=== PATIENT | male | born 1960 | race Caucasian/White ===

== ENCOUNTER 2017-05-06 03:38 | Emergency (ER) | payer OTHER ==
[2017-05-06] MEDS ORDERED: KETOROLAC 30 MG/ML 1 ML VIAL IVP STA (04:12)
[2017-05-06] MEDS ORDERED: HYDROmorphone 1 MG/ML 1 ML SYRINGE IVP STA ×2 (04:12→05:00)
[2017-05-06] MEDS ORDERED: SODIUM CHLORIDE 0.9% 1,000 ML IV ONE (04:12)
--- NOTE | 2017-05-06 04:26 | ED ---
General Adult HPI - General Chief complaint: Back Pain/Injury Stated complaint: Low Back Pain Time Seen by Provider: 05/06/17 04:12 Source: patient Mode of arrival: ambulatory Limitations: no limitations - History of Present Illness Initial comments: 57-year-old male patient presents to the emergency department today with complaints of left flank pain that started around 0100 this morning. He states that the pain is sharp, stabbing, and constant. He states it radiates into the left lower quadrant of his abdomen. Patient states that he has been a matter what position he is in. States that nothing makes the pain worse or better. Patient states he has had similar pain in the past with a kidney stone. Patient states that he has had decreased urine output with this. He states that he did have one episode of diarrhea with the onset of the pain. Patient denies any recent fever, chills, shortness breath, nausea, vomiting, numbness, tingling, dizziness, weakness, hematuria, dysuria, headache, visual changes, or any other complaints. - Related Data Previous Rx's Medication Instructions Recorded Hydrocodone/Acetaminophen [[place] 1 tab PO Q6H PRN #25 tab 05/06/17 7.5-325] RX: Ibuprofen 600 mg PO Q8H #30 tablet 05/06/17 Tamsulosin HCl [Flomax] 0.4 mg PO DAILY #7 cap 05/06/17 Allergies Allergy/AdvReac Type Severity Reaction Status Date / Time No Known Allergies Allergy Verified 05/06/17 03:45 Review of Systems ROS Statement: Those systems with pertinent positive or pertinent negative responses have been documented in the HPI. ROS Other: All systems not noted in ROS Statement are negative. Past Medical History Past Medical History: Hypertension History of Any Multi-Drug Resistant Organisms: None Reported Past Surgical History: Appendectomy Past Psychological History: No Psychological Hx Reported Smoking Status: Never smoker Past Alcohol Use History: None Reported Past Drug Use History: None Reported General Exam Limitations: no limitations General appearance: alert, in distress (Moderate), other (Well-developed, well- nourished male patient appears to be moderate distress, unable to sit still, rolling around in the bed. Vital signs upon presentation were temperature 90.7 F, pulse 65, respirations 20, blood pressure 138/88, pulse ox 97% on room air) ENT exam: Present: normal exam, normal oropharynx, mucous membranes moist Respiratory exam: Present: normal lung sounds bilaterally. Absent: respiratory distress, wheezes, rales, rhonchi, stridor Cardiovascular Exam: Present: regular rate, normal rhythm, normal heart sounds. Absent: systolic murmur, diastolic murmur, rubs, gallop, clicks GI/Abdominal exam: Present: soft, distended, normal bowel sounds. Absent: tenderness, guarding, rebound, rigid Back exam: Present: normal inspection. Absent: CVA tenderness (R), CVA tenderness (L) Neurological exam: Present: alert, oriented X3, CN II-XII intact Psychiatric exam: Present: normal affect, normal mood Skin exam: Present: warm, dry, intact, normal color. Absent: rash Course Vital Signs 05/06/17 05/06/17 03:42 05:51 Temperature 97 F L 97.5 F L Pulse Rate 65 74 Respiratory 20 16 Rate Blood Pressure 138/88 128/70 O2 Sat by Pulse 97 99 Oximetry - Reevaluation(s) Reevaluation #1: 05/06/17 05:01 Reevaluated patient. Patient states that his symptoms are much improved heart rate still rating his pain 2 out of 10 on the pain scale. He is requesting more pain medication. Did discuss findings with him. He still has a significant amount of his IV fluid bolus left ago, I would like him to get this prior to discharge. I will order additional pain medication and reevaluate once the fluids and pain medication has been infused. Medical Decision Making - Medical Decision Making 57-year-old male patient presents for evaluation of left flank pain with radiation to his left lower quadrant. Lab work was performed, serum labs are unremarkable, urinalysis did show red blood cells present. KUB x-ray of the abdomen was performed and did show a left mid abdominal calculus measuring up to 11.3 mm. There is also some evidence of a possible partial small bowel instruction on xray. Did discuss the possibility of this obstruction with the patient, patient does not clinically present with signs or symptoms of bowel obstruction. States that yesterday he ate and drank without difficulty. He denies any nausea or vomiting. He states he did have a bowel movement this morning. Upon reevaluation patient is resting comfortably in bed, states that his pain is resolved, states that he feels much better. He will be discharged with instructions to follow up with urology for further evaluation of this kidney stone. He is instructed to take medications as directed, he will be given Flomax, [place], ibuprofen, and a Zofran starter pack for management of symptoms. He is instructed to increase fluids. He is instructed to return immediately if he has any development of nausea, vomiting, urinary retention, fever, chills, or any other concerning symptoms. He is instructed to follow-up with his primary care physician for recheck in 1-2 days. He is instructed to return here immediately for any new, worsening, or concerning symptoms. Patient verbalizes understanding and agrees this plan. - Lab Data Result diagrams: 05/06/17 04:07 05/06/17 04:07 Lab Results 05/06/17 05/06/17 05/06/17 Range/Units 04:02 04:07 04:07 WBC 8.7 (3.8-10.6) k/uL RBC 4.61 (4.30-5.90) m/uL Hgb 14.8 (13.0-17.5) gm/dL Hct 45.0 (39.0-53.0) % MCV 97.6 (80.0-100.0) fL MCH 32.2 (25.0-35.0) pg MCHC 33.0 (31.0-37.0) g/dL RDW 14.1 (11.5-15.5) % Plt Count 185 (150-450) k/uL Neutrophils % 58 % Lymphocytes % 31 % Monocytes % 6 % Eosinophils % 3 % Basophils % 1 % Neutrophils # 5.0 (1.3-7.7) k/uL Lymphocytes # 2.7 (1.0-4.8) k/uL Monocytes # 0.5 (0-1.0) k/uL Eosinophils # 0.3 (0-0.7) k/uL Basophils # 0.1 (0-0.2) k/uL Sodium 140 (137-145) mmol/L Potassium 4.5 (3.5-5.1) mmol/L Chloride 110 H (98-107) mmol/L Carbon Dioxide 19 L (22-30) mmol/L Anion Gap 11 mmol/L BUN 17 (9-20) mg/dL Creatinine 1.00 (0.66-1.25) mg/dL Est GFR (MDRD) Af Amer >60 (>60 ml/min/1.73 sqM) Est GFR (MDRD) Non-Af >60 (>60 ml/min/1.73 sqM) Glucose 128 H (74-99) mg/dL Calcium 9.3 (8.4-10.2) mg/dL Total Bilirubin 0.6 (0.2-1.3) mg/dL AST 40 (17-59) U/L ALT 61 (21-72) U/L Alkaline Phosphatase 65 (38-126) U/L Total Protein 6.5 (6.3-8.2) g/dL Albumin 3.9 (3.5-5.0) g/dL Amylase 82 (30-110) U/L Lipase 247 (23-300) U/L Urine Color Yellow Urine Appearance Clear (Clear) Urine pH 5.0 (5.0-8.0) Ur Specific [place] 1.020 (1.001-1.035) Urine Protein Trace H (Negative) Urine Glucose (UA) Negative (Negative) Urine Ketones Negative (Negative) Urine Blood Moderate H (Negative) Urine Nitrite Negative (Negative) Urine Bilirubin Negative (Negative) Urine Urobilinogen <2.0 (<2.0) mg/dL Ur Leukocyte Esterase Negative (Negative) Urine RBC 117 H (0-5) /hpf Urine WBC 3 (0-5) /hpf Urine Mucus Few H (None) /hpf - Radiology Data Radiology results: report reviewed, image reviewed Two-view x-ray of the abdomen shows the intraperitoneal space there are surgical clips seen within the right lower abdomen. Left mid abdominal calcification is seen of uncertain etiology measuring up to 11.3 mm, question renal. No free air. Gastrointestinal tract shows dilated small bowel loops seen within the mid abdomen which may reflect a partial small bowel obstruction. Bones and joints are unremarkable. Impression by Dr. Silva shows dilated small bowel loops seen within the mid abdomen which may reflect a partial small bowel obstructive her left mid abdominal calcification is seen of uncertain etiology measuring up to 11.8 mm, question renal. Disposition Clinical Impression: Kidney stone on left side Disposition: HOME SELF-CARE Condition: Good Instructions: Kidney Stones (ED), How to Strain Your Urine (ED), Flank Pain (ED ) Additional Instructions: Strain urine. Increase fluids. Takes medications as directed. Call urology for an appointment tomorrow morning let them know you have an 11 mm kidney stone on the left side. Follow-up with your primary care physician for recheck in 1-2 days. Return immediately for any new, worsening, or concerning symptoms. Prescriptions: Hydrocodone/Acetaminophen [[place] 7.5-325] 1 tab PO Q6H PRN #25 tab PRN Reason: Pain RX: Ibuprofen 600 mg PO Q8H #30 tablet Tamsulosin HCl [Flomax] 0.4 mg PO DAILY #7 cap Referrals: Dario Hooper MD [Primary Care Provider] - 1-2 days Zan Easton MD [STAFF PHYSICIAN] - 1-2 days Time of Disposition: 05:37
[2017-05-06 04:31] LABS: Basophils # (A) 0.1 k/uL (0-0.2); Basophils % (A) 1 %; CH 32.9; CHCM 33.8; Eosinophils # (A) 0.3 k/uL (0-0.7); Eosinophils % (A) 3 %; HGB 14.8 gm/dL (13.0-17.5); Luc # (Auto) 0.15; Luc % (Auto) 2; Lymphocytes # (A) 2.7 k/uL (1.0-4.8); Lymphocytes % (A) 31 %; MCH 32.2 pg (25.0-35.0); MCV 97.6 fL (80.0-100.0); Mean Platelet Volume 8.7; Monocytes # (A) 0.5 k/uL (0-1.0); Monocytes % (A) 6 %; Neutrophils % (A) 58 %; RBC 4.61 m/uL (4.30-5.90); RDW 14.1 % (11.5-15.5); WBC 8.7 k/uL (3.8-10.6)
[2017-05-06 04:33] LABS: Appearance,Urine Clear (Clear); Bilirubin,Urine Negative (Negative); Glucose,Urine (UA) Negative (Negative); Ketones,Urine Negative (Negative); Leukocyte Esterase,Urine Negative (Negative); Mucus,Urine Few /hpf; Nitrite,Urine Negative (Negative); Particle Count 6089; Protein,Urine Trace (Negative); RBC,Urine 117 /hpf (0-5); UA Billing (MACRO vs. MICRO) MICRO; Urobilinogen,Urine <2.0 mg/dL (<2.0); WBC,Urine 3 /hpf (0-5)
[2017-05-06 04:41] LABS: ALT 61 U/L (21-72); AST 40 U/L (17-59); Alkaline Phosphatase 65 U/L (38-126); Amylase 82 U/L (30-110); Anion Gap 11 mmol/L; Blood Urea Nitrogen 17 mg/dL (9-20); Calcium 9.3 mg/dL (8.4-10.2); Carbon Dioxide 19 mmol/L (22-30); Chloride 110 mmol/L (98-107); Glucose 128 mg/dL (74-99); Non-African American GFR(MDRD) >60 (>60 ml/min/1.73 sqM); Potassium 4.5 mmol/L (3.5-5.1); Sodium 140 mmol/L (137-145); Total Bilirubin 0.6 mg/dL (0.2-1.3); Total Protein 6.5 g/dL (6.3-8.2)
--- NOTE | 2017-05-06 05:21 | XR ---
EXAM: XR Abdomen Complete, 2 Views CLINICAL HISTORY: Reason: Pain TECHNIQUE: Frontal view of the abdomen/pelvis with upright view of the abdomen. COMPARISON: No relevant prior studies available. FINDINGS: Intraperitoneal space: Surgical clips are seen within the right lower abdomen. Left mid abdominal calcification is seen of uncertain etiology measuring up to 11.3 mm, question renal. No free air. Gastrointestinal tract: Dilated small bowel loops seen within the mid abdomen which may reflect a partial small bowel obstruction. Bones/joints: Unremarkable. IMPRESSION: Dilated small bowel loops seen within the mid abdomen which may reflect a partial small bowel obstruction. Left mid abdominal calcification is seen of uncertain etiology measuring up to 11.3 mm, question renal.
[2017-05-06] MEDS ORDERED: ONDANSETRON 4 MG ODT STARTER PACK 2 TAB BTL PO STA (05:40)
[2017-05-06 05:52] VITALS: BP 128/70; PULSE 74; RESP 16; TEMP 97.5
== END 2017-05-06 05:51 | disposition home or self-care (01) ==
LOC: EC 03:38
DX: N20.0 Calculus of kidney (principal); K31.89 Other diseases of stomach and duodenum; R19.7 Diarrhea, unspecified; Z90.49 Acquired absence of other specified parts of digestive tract
CPT/HCPCS: 99284; 96374; 96375; 96376; 96361 ×2; 36415; 80053; 82150; 83690; 85025; 81001; 74000; J1885; J1170; S0119

== ENCOUNTER 2020-01-08 13:35 | Emergency (ER) | payer OTHER ==
[2020-01-08 13:45] VITALS: TEMP 98.3
[2020-01-08] MEDS ORDERED: IBUPROFEN 600 MG TAB PO STA (14:06)
--- NOTE | 2020-01-08 14:15 | ED ---
Head Injury HPI - General Chief complaint: Head Injury Stated complaint: head injury Time Seen by Provider: 01/08/20 13:53 Source: patient Mode of arrival: ambulatory Limitations: no limitations - History of Present Illness Initial comments: Patient is a 59-year-old male presenting to the emergency Department with complaints of a headache and nausea after a head injury yesterday. 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 Patient denies loss of consciousness. He states he had minor bleeding from the area that was quickly controlled. Patient denies any nausea or vomiting, dizziness yesterday. Patient states he went back to work this morning he was doing a lot of reading and noticed his headache was increasing as well as some mild nausea. He denies any dizziness or vomiting today. Patient denies any blurry vision. Patient has no other complaints. 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 Patient has no other complaints at this time. Upon arrival to the ER, his vital signs are stable. - Related Data Previous Rx's Medication Instructions Recorded Hydrocodone/Acetaminophen [[place] 1 tab PO Q6H PRN #25 tab 05/06/17 7.5-325] Ibuprofen 600 mg PO Q8H #30 tablet 05/06/17 Tamsulosin HCl [Flomax] 0.4 mg PO DAILY #7 cap 05/06/17 Allergies/Adverse reactions: Allergies Allergy/AdvReac Type Severity Reaction Status Date / Time No Known Allergies Allergy Verified 01/08/20 13:45 Review of Systems ROS Statement: Those systems with pertinent positive or pertinent negative responses have been documented in the HPI. ROS Other: All systems not noted in ROS Statement are negative. Past Medical History Past Medical History: Hypertension History of Any Multi-Drug Resistant Organisms: None Reported Past Surgical History: Appendectomy Past Psychological History: No Psychological Hx Reported Smoking Status: Never smoker Past Alcohol Use History: None Reported Past Drug Use History: None Reported General Exam - General Exam Comments Initial Comments: GENERAL: Well-appearing, well-nourished and in no acute distress. HEAD: Atraumatic, normocephalic. No signs of basal skull fracture. Patient has an abrasion to the superior right aspect of the scalp. No active bleeding. EYES: Dilated right pupil, this is normal for patient, secondary to previous injury/surgery. Left pupil equal round and reactive to light, extraocular movements intact, sclera anicteric, conjunctiva are normal. ENT: TMs normal, nares patent, oropharynx clear without exudates. Moist mucous membranes. NECK: Normal range of motion, supple without lymphadenopathy or JVD. LUNGS: Breath sounds clear to auscultation bilaterally and equal. No wheezes rales or rhonchi. HEART: Regular rate and rhythm without murmurs, rubs or gallops. ABDOMEN: Soft, nontender, normoactive bowel sounds. No guarding, no rebound. No masses appreciated. : Deferred EXTREMITIES: Normal range of motion, no pitting or edema. No clubbing or cyanosis. Sensation is equal and normal bilateral upper and lower extremities. Strength is equal and bilateral upper and lower extremities. NEUROLOGICAL: Cranial nerves II through XII grossly intact. Normal speech, normal gait. PSYCH: Normal mood, normal affect. SKIN: Warm, Dry, normal turgor, no rashes or lesions noted. Limitations: no limitations Course Vital Signs 01/08/20 13:43 Temperature 98.3 F Pulse Rate 63 Respiratory 20 Rate Blood Pressure 128/82 O2 Sat by Pulse 98 Oximetry Medical Decision Making - Medical Decision Making Patient is a 59-year-old male here for a head injury that happened yesterday. Patient is complaining of increased headache and nausea when he returned to work today. There was no loss consciousness yesterday. Patient's exam is normal today, no neuro deficits. CT of the head reveals no acute abnormality. Patient was given Motrin in the ER. I discussed the patient's symptoms are most likely related to a mild concussion. Recommended to limit physical activity and close eye work. Patient will follow-up with PCP. Return parameters were discussed with the patient and he verbalized understanding. He is stable for discharge and he is in agreement with this plan of care. Case discussed Dr. Prasad. Disposition Clinical Impression: Concussion, Head ache, Nausea Disposition: HOME SELF-CARE Condition: Stable Instructions (If sedation given, give patient instructions): Concussion (ED) Additional Instructions: Please return to the Emergency Department if symptoms worsen or any other concerns. Limited physical activity until symptoms subside. Follow-up with PCP. Is patient prescribed a controlled substance at d/c from ED?: No Referrals: Dario Hooper MD [Primary Care Provider] - 1-2 days
--- NOTE | 2020-01-08 14:57 | CT ---
EXAMINATION TYPE: CT brain wo con DATE OF EXAM: 01/08/2020 COMPARISON: NONE HISTORY: headache following head injury CT DLP: 1129.4 mGycm. Automated Exposure Control for Dose Reduction was Utilized. TECHNIQUE: CT scan of the head is performed without contrast. FINDINGS: There is no acute intracranial hemorrhage, mass effect, or midline shift identified. The ventricles and sulci are within normal limits in size. Postsurgical change of the right maxillary si nus and inferior orbital wall with mild residual mucosal thickening. Scant mucosal thickening of the ethmoid sinuses and a plate of the left frontal sinuses. Remaining paranasal sinuses and mastoid air cells are well aerated.. 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 IMPRESSION: 1. No acute intracranial hemorrhage, mass effect, or midline shift is seen. 2. Postsurgical and/or chronic posttraumatic change of the right maxillary sinus and inferior orbital wall with mild residual right maxillary mucosal thickening.
[2020-01-08 15:23] VITALS: BP 134/79; PULSE 87; RESP 16
== END 2020-01-08 15:22 | disposition home or self-care (01) ==
LOC: EC 13:35
DX: S06.0X0A Concussion without loss of consciousness, initial encounter (principal); R11.0 Nausea; W20.8XXA Other cause of strike by thrown, projected or falling object, initial encounter
CPT/HCPCS: 70450; 99283

== ENCOUNTER 2020-10-26 09:32 | Emergency (ER) | payer OTHER ==
[2020-10-26] MEDS ORDERED: SODIUM CHLORIDE 0.9% 1,000 ML IV STA (10:00)
[2020-10-26] MEDS ORDERED: KETOROLAC 15 MG/ML 1 ML VIAL IVP STA (10:00)
[2020-10-26] MEDS ORDERED: ONDANSETRON 4 MG/2 ML VIAL IVP STA (10:00)
[2020-10-26] MEDS ORDERED: HYDROmorphone 0.5 MG/0.5 ML SYRINGE IVP STA (10:16)
[2020-10-26 10:17] LABS: Basophils # (A) 0.1 k/uL (0-0.2); Basophils % (A) 1 %; Eosinophils # (A) 0.1 k/uL (0-0.7); Eosinophils % (A) 1 %; HCT 49.1 % (39.0-53.0); HGB 15.9 gm/dL (13.0-17.5); Lymphocytes # (A) 1.5 k/uL (1.0-4.8); Lymphocytes % (A) 18 %; MCH 31.9 pg (25.0-35.0); MCHC 32.5 g/dL (31.0-37.0); MCV 98.1 fL (80.0-100.0); Mean Platelet Volume 8.6; Monocytes # (A) 0.6 k/uL (0-1.0); Monocytes % (A) 7 %; Neutrophils # (A) 6.3 k/uL (1.3-7.7); Neutrophils % (A) 72 %; Platelet Count 204 k/uL (150-450); WBC 8.7 k/uL (3.8-10.6)
--- NOTE | 2020-10-26 10:18 | ED ---
General Adult HPI - General Source: patient Mode of arrival: wheelchair Limitations: no limitations <Celestino Yoder - Last Filed: 10/26/20 11:08> <Mariella Miller - Last Filed: 10/28/20 23:13> - General Chief complaint: Abdominal Pain Stated complaint: Back Pain Time Seen by Provider: 10/26/20 09:50 - History of Present Illness Initial comments: 60-year-old male with a past medical history of hypertension, nephrolithiasis, appendectomy presents to the emergency department for chief complaint of right low back pain. Patient reports that about 4 hours prior to arrival he developed pain in the right low back that radiates to his abdomen. Patient states he has had kidney stones in the past however this is more severe. Patient admits to nausea denies vomiting. Denies fevers. Denies chest pain.Patient has no other complaints at this time including shortness of breath, chest pain, abdominal pain, nausea or vomiting, headache, or visual changes. (Celestino Yoder) - Related Data Previous Rx's Medication Instructions Recorded Hydrocodone/Acetaminophen [[place] 1 tab PO Q6H PRN #25 tab 05/06/17 7.5-325] Ibuprofen 600 mg PO Q8H #30 tablet 05/06/17 Tamsulosin HCl [Flomax] 0.4 mg PO DAILY #7 cap 05/06/17 HYDROcodone/APAP 5-325MG [[place] 1 tab PO Q6HR PRN #10 tab 10/26/20 5-325] Ibuprofen [Motrin] 600 mg PO Q8HR PRN #20 tab 10/26/20 Ondansetron [Zofran ODT] 4 mg PO Q8HR PRN #15 tab 10/26/20 Tamsulosin [Flomax] 0.4 mg PO DAILY #14 cap 10/26/20 Allergies Allergy/AdvReac Type Severity Reaction Status Date / Time No Known Allergies Allergy Verified 10/26/20 09:40 Review of Systems ROS Other: All systems not noted in ROS Statement are negative. <Celestino Yoder - Last Filed: 10/26/20 11:08> ROS Other: All systems not noted in ROS Statement are negative. <Mariella Miller - Last Filed: 10/28/20 23:13> ROS Statement: Those systems with pertinent positive or pertinent negative responses have been documented in the HPI. Past Medical History Past Medical History: Hypertension Additional Past Medical History / Comment(s): kidney stones History of Any Multi-Drug Resistant Organisms: None Reported Past Surgical History: Appendectomy Past Psychological History: No Psychological Hx Reported Smoking Status: Former smoker Past Alcohol Use History: Occasional Past Drug Use History: None Reported <Celestino Yoder - Last Filed: 10/26/20 11:08> General Exam Limitations: no limitations General appearance: alert, in no apparent distress Head exam: Present: atraumatic, normocephalic, normal inspection Eye exam: Present: normal appearance, PERRL, EOMI. Absent: scleral icterus, conjunctival injection, periorbital swelling ENT exam: Present: normal exam, mucous membranes moist Neck exam: Present: normal inspection, full ROM. Absent: tenderness, mening ismus, lymphadenopathy Respiratory exam: Present: normal lung sounds bilaterally. Absent: respiratory distress, wheezes, rales, rhonchi, stridor Cardiovascular Exam: Present: regular rate, normal rhythm, normal heart sounds. Absent: systolic murmur, diastolic murmur, rubs, gallop, clicks GI/Abdominal exam: Present: soft, normal bowel sounds. Absent: distended, tenderness Back exam: Present: CVA tenderness (R). Absent: CVA tenderness (L) Neurological exam: Present: alert <Celestino Yoder - Last Filed: 10/26/20 11:08> Course Vital Signs 10/26/20 10/26/20 09:38 11:14 Temperature 97.4 F L 98.4 F Pulse Rate 86 72 Respiratory 16 18 Rate Blood Pressure 131/73 126/73 O2 Sat by Pulse 97 97 Oximetry Medical Decision Making - Lab Data Result diagrams: 10/26/20 10:08 10/26/20 10:08 <Celestino Yoder - Last Filed: 10/26/20 11:08> - Lab Data Result diagrams: 10/26/20 10:08 10/26/20 10:08 <Mariella Miller - Last Filed: 10/28/20 23:13> - Medical Decision Making Vitals are stable. Patient initially presented in mild distress secondary to pain. He did have right CVA tenderness. No abdominal tenderness. CBC and CMP are unremarkable. Lipase is normal. Urinalysis does show hematuria. CT abdomen and pelvis was obtained that showed a 6 mm calculus in the uppermost right ureter with mild early obstructive uropathy. Patient was given Toradol for pain and had significant improvement in symptoms. At this time patient will be started on Motrin and [place] for pain, Flomax, and Zofran. Discussed that this stone may pass on its own however he may require lithotripsy. [facility] and will continue to do so. He will call tomorrow for an appointment. He will return here for any worsening symptoms. (Celestino Yoder) I was available for consultation in the emergency department. The history and physical exam were done by the midlevel provider. I was consulted for this patients care. I reviewed the case with the midlevel provider and based on their presentation of the patient, I agree with the assessment, medical decision making and plan of care as documented. Chart was dictated using [employer] dictation software. Attempts were made to correct any dictation errors however some typographical errors may persist. (Mariella Miller) - Lab Data Lab Results 10/26/20 10/26/20 10/26/20 Range/Units 10:08 10:08 10:08 WBC 8.7 (3.8-10.6) k/uL RBC 5.00 (4.30-5.90) m/uL Hgb 15.9 (13.0-17.5) gm/dL Hct 49.1 (39.0-53.0) % MCV 98.1 (80.0-100.0) fL MCH 31.9 (25.0-35.0) pg MCHC 32.5 (31.0-37.0) g/dL RDW 13.0 (11.5-15.5) % Plt Count 204 (150-450) k/uL MPV 8.6 Neutrophils % 72 % Lymphocytes % 18 % Monocytes % 7 % Eosinophils % 1 % Basophils % 1 % Neutrophils # 6.3 (1.3-7.7) k/uL Lymphocytes # 1.5 (1.0-4.8) k/uL Monocytes # 0.6 (0-1.0) k/uL Eosinophils # 0.1 (0-0.7) k/uL Basophils # 0.1 (0-0.2) k/uL Sodium 141 (137-145) mmol/L Potassium 5.2 H (3.5-5.1) mmol/L Chloride 107 (98-107) mmol/L Carbon Dioxide 26 (22-30) mmol/L Anion Gap 8 mmol/L BUN 14 (9-20) mg/dL Creatinine 1.12 (0.66-1.25) mg/dL Est GFR (CKD-EPI)AfAm 83 (>60 ml/min/1.73 sqM) Est GFR (CKD-EPI)NonAf 72 (>60 ml/min/1.73 sqM) Glucose 139 H (74-99) mg/dL Calcium 9.5 (8.4-10.2) mg/dL Total Bilirubin 0.8 (0.2-1.3) mg/dL AST 36 (17-59) U/L ALT 42 (4-49) U/L Alkaline Phosphatase 59 (38-126) U/L Total Protein 6.7 (6.3-8.2) g/dL Albumin 4.1 (3.5-5.0) g/dL Amylase 92 (30-110) U/L Lipase 234 (23-300) U/L Urine Color Light Red Urine Appearance Cloudy (Clear) Urine pH 5.5 (5.0-8.0) Ur Specific [place] 1.024 (1.001-1.035) Urine Protein 2+ H (Negative) Urine Glucose (UA) Negative (Negative) Urine Ketones Negative (Negative) Urine Blood Large H (Negative) Urine Nitrite Negative (Negative) Urine Bilirubin Negative (Negative) Urine Urobilinogen <2.0 (<2.0) mg/dL Ur Leukocyte Esterase Negative (Negative) Urine RBC >182 H (0-5) /hpf Urine WBC 4 (0-5) /hpf Urine WBC Clumps Few H (None) /hpf Ur Squamous Epith Cells <1 (0-4) /hpf Urine Bacteria Rare H (None) /hpf Urine Mucus Few H (None) /hpf Urine Yeast (Bud[place]) Few H (None) /hpf Disposition Is patient prescribed a controlled substance at d/c from ED?: Yes When asked, does pt state using other controlled substances?: No If prescribed controlled substance>3 days was MAPS reviewed?: Prescribed <3 Days If opioid is for acute pain is fill amount 7 days or less?: Yes If Rx opioid, was Start Talking consent form obtained?: Yes Time of Disposition: 11:09 <Celestino Yoder - Last Filed: 10/26/20 11:08> <Mariella Miller - Last Filed: 10/28/20 23:13> Clinical Impression: Kidney stone on right side Disposition: HOME SELF-CARE Condition: Good Instructions (If sedation given, give patient instructions): Kidney Stones (ED) Additional Instructions: Please take Motrin for pain. If pain is severe take [place]. Do not drive while taking this. Take Zofran as needed for nausea. Take Flomax as directed. Follo w up with urology. Return to the emergency room for any worsening symptoms. Prescriptions: Tamsulosin [Flomax] 0.4 mg PO DAILY #14 cap Ibuprofen [Motrin] 600 mg PO Q8HR PRN #20 tab PRN Reason: Pain HYDROcodone/APAP 5-325MG [[place] 5-325] 1 tab PO Q6HR PRN #10 tab PRN Reason: Pain Ondansetron [Zofran ODT] 4 mg PO Q8HR PRN #15 tab PRN Reason: Nausea Referrals: Dario Hooper MD [Primary Care Provider] - 1-2 days Ar Mathis MD [STAFF PHYSICIAN] - 1-2 days
--- NOTE | 2020-10-26 10:26 | XR ---
EXAMINATION TYPE: XR KUB DATE OF EXAM: 10/26/2020 Comparison: 05/06/2017 Clinical History: 60-year-old male right flank pain, ordered for radiology Findings: Lung bases are clear. No evidence for free intraperitoneal air. Surgical clips in the right lower quadrant. Nonobstructive bowel gas pattern. No significant stool burden. There is an approximately 5 mm calculus at the right paramedian lower abdomen. Impression: 5 mm right-sided calculus probably at the UVJ or upper most right ureter.
[2020-10-26 10:27] LABS: Appearance,Urine Cloudy (Clear); Bacteria,Urine Rare /hpf; Bilirubin,Urine Negative (Negative); Blood,Urine Large (Negative); Budding Yeast,Urine Few /hpf; Color,Urine Light Red; Glucose,Urine (UA) Negative (Negative); Ketones,Urine Negative (Negative); Leukocyte Esterase,Urine Negative (Negative); Mucus,Urine Few /hpf; Nitrite,Urine Negative (Negative); PH, Urine 5.5 (5.0-8.0); Protein,Urine 2+ (Negative); RBC,Urine >182 /hpf (0-5); Specific Gravity,Urine 1.024 (1.001-1.035); Squamous Epithelial Cell,Urine <1 /hpf (0-4); Urobilinogen,Urine <2.0 mg/dL (<2.0); WBC,Urine 4 /hpf (0-5)
[2020-10-26 10:30] LABS: Albumin 4.1 g/dL (3.5-5.0); Calcium 9.5 mg/dL (8.4-10.2); Potassium 5.2 mmol/L (3.5-5.1); Total Bilirubin 0.8 mg/dL (0.2-1.3); Total Protein 6.7 g/dL (6.3-8.2)
--- NOTE | 2020-10-26 10:31 | CT ---
EXAMINATION TYPE: CT abdomen pelvis wo con DATE OF EXAM: 10/26/2020 COMPARISON: Radiograph same day HISTORY: 60-year-old male Right sided abdominal pain/flank pain CT DLP: 775.2 mGycm. Automated exposure control for dose reduction was used. TECHNIQUE: Contiguous axial scanning of the abdomen and pelvis without IV contrast. Coronal and sagit toby reconstructions performed. FINDINGS: A normal size without pericardial effusion. Strandy atelectasis in lung bases. Calcified granuloma in ferior lingula. No pleural effusion. Liver borderline in size at 17.6 cm. Noncontrast appearance of the gallbladder, adrenal glands, left kidney, spleen with superior splenule, and pancreas show no gross abnormality. Mildly enlarged 1 cm peripancreatic lymph node probably reactive/post inflammatory. A portacaval lymp h node is prominent but not enlarged at 1.1 cm. Otherwise, no mesenteric or retroperitoneal lymphaden opathy. Surgical clips in the right lower quadrant. Probably related to prior appendectomy. No significant st ool burden. No pericolonic inflammatory change. There is a 6 mm calculus in the upper most right ureter with mild right-sided pelvicaliectasis. Bladder is collapsed. Prostate gland shows some central calcifications and measures 5.1 cm wide. No a bnormal fluid collection in the pelvis or pelvic lymphadenopathy. Bones: Multiple punctate sclerotic foci in the pelvis probably bone islands. Moderate degenerative di sc disease L5-S1. IMPRESSION: A 6 mm calculus in the upper most right ureter with mild early obstructive uropathy.
[2020-10-26 11:17] VITALS: BP 126/73; PULSE 72; RESP 18; TEMP 98.4
== END 2020-10-26 11:32 | disposition home or self-care (01) ==
LOC: EC 09:32
DX: N20.0 Calculus of kidney (principal); Z87.891 Personal history of nicotine dependence; Z90.49 Acquired absence of other specified parts of digestive tract
CPT/HCPCS: 36415; 80053; 82150; 83690; 85025; 81001; 74018; 74176; 99284; 96374; 96375; 96361; J2405; J1885

== ENCOUNTER 2020-11-04 09:39 | Emergency (ER) | payer OTHER ==
[2020-11-04 09:43] VITALS: RESP 16; TEMP 98.4
[2020-11-04] MEDS ORDERED: ONDANSETRON 4 MG/2 ML VIAL IVP STA (10:11)
[2020-11-04] MEDS ORDERED: KETOROLAC 15 MG/ML 1 ML VIAL IVP STA (10:11)
[2020-11-04] MEDS ORDERED: HYDROmorphone 0.5 MG/0.5 ML SYRINGE IVP STA (10:11)
--- NOTE | 2020-11-04 10:20 | ED ---
General Adult HPI - General Chief complaint: Abdominal Pain Stated complaint: kidney stones Time Seen by Provider: 11/04/20 10:02 Source: patient, RN notes reviewed Mode of arrival: ambulatory Limitations: no limitations - History of Present Illness Initial comments: 60-year-old male with a past medical history of hypertension, kidney stones, DVT presents to the emergency room for a chief abdominal pain. Patient reports that he is having a kidney stone removed from the right ureter tomorrow. However last night the pain worsened again. States generalized abdominal pain and right flank pain started. Patient is concerned he may be constipated but did have a bowel movement yesterday. Patient is concerned he is retaining urine as well. Patient has no other complaints at this time including shortness of breath, chest pain, nausea or vomiting, headache, or visual changes. - Related Data Home Medications Medication Instructions Recorded Confirmed Acetaminophen Tab [Tylenol Tab] 1,000 mg PO Q6HR PRN 11/04/20 11/04/20 Losartan Potassium 50 mg PO HS 11/04/20 11/04/20 Previous Rx's Medication Instructions Recorded HYDROcodone/APAP 5-325MG [[place] 1 tab PO Q6HR PRN #10 tab 10/26/20 5-325] Ondansetron [Zofran ODT] 4 mg PO Q8HR PRN #15 tab 10/26/20 Tamsulosin [Flomax] 0.4 mg PO DAILY #14 cap 10/26/20 Allergies Allergy/AdvReac Type Severity Reaction Status Date / Time No Known Allergies Allergy Verified 11/04/20 10:37 Review of Systems ROS Statement: Those systems with pertinent positive or pertinent negative responses have been documented in the HPI. ROS Other: All systems not noted in ROS Statement are negative. Past Medical History Past Medical History: Deep Vein Thrombosis (DVT), Hypertension Additional Past Medical History / Comment(s): kidney stones. DVT LT LEG AFTER A BREAK History of Any Multi-Drug Resistant Organisms: None Reported Past Surgical History: Appendectomy Past Anesthesia/Blood Transfusion Reactions: No Reported Reaction Past Psychological History: No Psychological Hx Reported Smoking Status: Former smoker Past Alcohol Use History: Occasional Past Drug Use History: None Reported - Past Family History Mother Family Medical History: Cancer General Exam Limitations: no limitations General appearance: alert, in no apparent distress Head exam: Present: atraumatic, normocephalic, normal inspection Eye exam: Present: normal appearance, PERRL, EOMI. Absent: scleral icterus, conjunctival injection, periorbital swelling ENT exam: Present: normal exam, mucous membranes moist Neck exam: Present: normal inspection, full ROM. Absent: tenderness, meningismus, lymphadenopathy Respiratory exam: Present: normal lung sounds bilaterally. Absent: respiratory distress, wheezes, rales, rhonchi, stridor Cardiovascular Exam: Present: regular rate, normal rhythm, normal heart sounds. Absent: systolic murmur, diastolic murmur, rubs, gallop, clicks GI/Abdominal exam: Present: soft, normal bowel sounds. Absent: distended, tenderness, guarding, rebound, rigid Back exam: Absent: CVA tenderness (R), CVA tenderness (L) Course Vital Signs 11/04/20 09:40 Temperature 98.4 F Pulse Rate 96 Respiratory 16 Rate Blood Pressure 169/94 O2 Sat by Pulse 96 Oximetry Medical Decision Making - Medical Decision Making Vitals are stable. Slight abdominal tenderness. Right flank pain and CVA tenderness. I did bladder scan patient, only 100 mL in the bladder at this time. CBC unremarkable. CMP shows a mild bump in the creatinine to 1.66 from 1.12 on the 14th. Urinalysis does not show any evidence of infection. X-ray KUB was obtained which shows an overall nonspecific but still favor nondestructive bowel gas pattern. Patient was given pain medication and had complete resolution in symptoms. Patient is also requesting something for constipation. States he is having less frequent bowel movements however the last one was yesterday. States that he tried MiraLAX but it did not seem to help. We will try magnesium citrate for patient. At this time patient is stable for discharge home. He has an appointment with urology to get the stone removed tomorrow which I feel is the cause of the majority of his symptoms. He will return here for any worsening symptoms. - Lab Data Result diagrams: 11/04/20 10:22 11/04/20 10:22 Lab Results 11/04/20 11/04/20 11/04/20 Range/Units 10:22 10:22 10:22 WBC 10.4 (3.8-10.6) k/uL RBC 4.67 (4.30-5.90) m/uL Hgb 14.7 (13.0-17.5) gm/dL Hct 45.1 (39.0-53.0) % MCV 96.7 (80.0-100.0) fL MCH 31.4 (25.0-35.0) pg MCHC 32.5 (31.0-37.0) g/dL RDW 12.7 (11.5-15.5) % Plt Count 200 (150-450) k/uL MPV 7.9 Neutrophils % 80 % Lymphocytes % 11 % Monocytes % 6 % Eosinophils % 1 % Basophils % 0 % Neutrophils # 8.3 H (1.3-7.7) k/uL Lymphocytes # 1.2 (1.0-4.8) k/uL Monocytes # 0.6 (0-1.0) k/uL Eosinophils # 0.1 (0-0.7) k/uL Basophils # 0.0 (0-0.2) k/uL Sodium 137 (137-145) mmol/L Potassium 4.7 (3.5-5.1) mmol/L Chloride 103 (98-107) mmol/L Carbon Dioxide 26 (22-30) mmol/L Anion Gap 8 mmol/L BUN 13 (9-20) mg/dL Creatinine 1.66 H (0.66-1.25) mg/dL Est GFR (CKD-EPI)AfAm 52 (>60 ml/min/1.73 sqM) Est GFR (CKD-EPI)NonAf 45 (>60 ml/min/1.73 sqM) Glucose 93 (74-99) mg/dL Plasma Lactic Acid Dar 1.5 (0.7-2.0) mmol/L Calcium 9.0 (8.4-10.2) mg/dL Total Bilirubin 0.6 (0.2-1.3) mg/dL AST 47 (17-59) U/L ALT 74 H (4-49) U/L Alkaline Phosphatase 64 (38-126) U/L Total Protein 6.4 (6.3-8.2) g/dL Albumin 3.8 (3.5-5.0) g/dL Amylase 58 (30-110) U/L Lipase 112 (23-300) U/L Urine Color Urine Appearance (Clear) Urine pH (5.0-8.0) Ur Specific [place] (1.001-1.035) Urine Protein (Negative) Urine Glucose (UA) (Negative) Urine Ketones (Negative) Urine Blood (Negative) Urine Nitrite (Negative) Urine Bilirubin (Negative) Urine Urobilinogen (<2.0) mg/dL Ur Leukocyte Esterase (Negative) 11/04/20 Range/Units 12:13 WBC (3.8-10.6) k/uL RBC (4.30-5.90) m/uL Hgb (13.0-17.5) gm/dL Hct (39.0-53.0) % MCV (80.0-100.0) fL MCH (25.0-35.0) pg MCHC (31.0-37.0) g/dL RDW (11.5-15.5) % Plt Count (150-450) k/uL MPV Neutrophils % % Lymphocytes % % Monocytes % % Eosinophils % % Basophils % % Neutrophils # (1.3-7.7) k/uL Lymphocytes # (1.0-4.8) k/uL Monocytes # (0-1.0) k/uL Eosinophils # (0-0.7) k/uL Basophils # (0-0.2) k/uL Sodium (137-145) mmol/L Potassium (3.5-5.1) mmol/L Chloride (98-107) mmol/L Carbon Dioxide (22-30) mmol/L Anion Gap mmol/L BUN (9-20) mg/dL Creatinine (0.66-1.25) mg/dL Est GFR (CKD-EPI)AfAm (>60 ml/min/1.73 sqM) Est GFR (CKD-EPI)NonAf (>60 ml/min/1.73 sqM) Glucose (74-99) mg/dL Plasma Lactic Acid Dar (0.7-2.0) mmol/L Calcium (8.4-10.2) mg/dL Total Bilirubin (0.2-1.3) mg/dL AST (17-59) U/L ALT (4-49) U/L Alkaline Phosphatase (38-126) U/L Total Protein (6.3-8.2) g/dL Albumin (3.5-5.0) g/dL Amylase (30-110) U/L Lipase (23-300) U/L Urine Color Light Yellow Urine Appearance Clear (Clear) Urine pH 6.0 (5.0-8.0) Ur Specific [place] 1.015 (1.001-1.035) Urine Protein Negative (Negative) Urine Glucose (UA) Negative (Negative) Urine Ketones Negative (Negative) Urine Blood Negative (Negative) Urine Nitrite Negative (Negative) Urine Bilirubin Negative (Negative) Urine Urobilinogen <2.0 (<2.0) mg/dL Ur Leukocyte Esterase Negative (Negative) Disposition Clinical Impression: Kidney stone on right side, Creatinine elevation Disposition: HOME SELF-CARE Condition: Good Instructions (If sedation given, give patient instructions): Kidney Stones (ED), Constipation (ED) Additional Instructions: Please follow-up with your urologist tomorrow. Return to the emergency room for any worsening symptoms. Is patient prescribed a controlled substance at d/c from ED?: No Referrals: Dario Hooper MD [Primary Care Provider] - 1-2 days Time of Disposition: 12:56
[2020-11-04 10:28] LABS: Basophils % (A) 0 %; Eosinophils # (A) 0.1 k/uL (0-0.7); Eosinophils % (A) 1 %; HCT 45.1 % (39.0-53.0); HGB 14.7 gm/dL (13.0-17.5); Lymphocytes # (A) 1.2 k/uL (1.0-4.8); Lymphocytes % (A) 11 %; MCH 31.4 pg (25.0-35.0); MCHC 32.5 g/dL (31.0-37.0); MCV 96.7 fL (80.0-100.0); Mean Platelet Volume 7.9; Monocytes # (A) 0.6 k/uL (0-1.0); Monocytes % (A) 6 %; Neutrophils # (A) 8.3 k/uL (1.3-7.7); Neutrophils % (A) 80 %; Platelet Count 200 k/uL (150-450); RBC 4.67 m/uL (4.30-5.90); RDW 12.7 % (11.5-15.5); WBC 10.4 k/uL (3.8-10.6)
[2020-11-04 10:37] LABS: Albumin 3.8 g/dL (3.5-5.0); Potassium 4.7 mmol/L (3.5-5.1); Total Bilirubin 0.6 mg/dL (0.2-1.3); Total Protein 6.4 g/dL (6.3-8.2)
--- NOTE | 2020-11-04 11:15 | XR ---
EXAMINATION TYPE: XR KUB DATE OF EXAM: 11/04/2020 11:02 AM CLINICAL HISTORY: Abdominal pain. TECHNIQUE: Two Upright KUB images of the abdomen are obtained. COMPARISON: Abdominal x-ray and CTA 9 days ago. FINDINGS: Scattered gas is seen in non-distended stomach bubble. Some paucity of small bowel gas with slightly prominent gas-filled small bowel loops in the upper to mid abdomen. Gas and fecal material is seen in non-distended colon along the periphery. Lung bases remain clear. No free air. Surgical cl ips right lower quadrant redemonstrated. Visualized osseous structures are intact. IMPRESSION: Overall nonspecific but still favor nonobstructive bowel gas pattern.
[2020-11-04] MEDS ORDERED: SODIUM CHLORIDE 0.9% 1,000 ML IV STA (11:45)
[2020-11-04 12:31] LABS: Appearance,Urine Clear (Clear); Bilirubin,Urine Negative (Negative); Blood,Urine Negative (Negative); Color,Urine Light Yellow; Glucose,Urine (UA) Negative (Negative); Ketones,Urine Negative (Negative); Leukocyte Esterase,Urine Negative (Negative); Nitrite,Urine Negative (Negative); Protein,Urine Negative (Negative); Specific Gravity,Urine 1.015 (1.001-1.035); Urobilinogen,Urine <2.0 mg/dL (<2.0)
[2020-11-04] MEDS ORDERED: MAGNESIUM CITRATE 296 ML BOTTLE PO STA (12:35)
[2020-11-04 13:21] VITALS: BP 136/79; PULSE 86
== END 2020-11-04 13:20 | disposition home or self-care (01) ==
LOC: EC 09:39
DX: N20.0 Calculus of kidney (principal); R79.89 Other specified abnormal findings of blood chemistry; I10 Essential (primary) hypertension; Z79.899 Other long term (current) drug therapy; Z86.718 Personal history of other venous thrombosis and embolism; Z87.891 Personal history of nicotine dependence
CPT/HCPCS: 51798; 36415; 80053; 82150; 83605; 83690; 85025; 81003; 74018; 99284; 96374; 96375; 96361; J2405; J1885; J1170

== ENCOUNTER 2020-11-05 12:49 | Day surgery (SDC) | payer OTHER ==
[2020-11-03 11:36] VITALS: BMI 32.5
[~2020-11-05 12:49] MED LIST: DEXAMETHASONE SOD PHOSPHATE 4 MG/ML 1 ML VIAL IV ONE; HYDROmorphone 0.5 MG/0.5 ML SYRINGE IVP PRN; LACTATED RINGERS 1,000 ML IV SCH; ONDANSETRON 4 MG/2 ML VIAL IVP ONE
--- NOTE | 2020-11-05 13:21 | XR ---
EXAMINATION TYPE: XR KUB DATE OF EXAM: 11/05/2020 COMPARISON: NONE HISTORY: Pain TECHNIQUE: Single supine KUB image of the abdomen is obtained FINDINGS: Small bowel demonstrates no evidence for dilatation or air fluid levels. Gas and fecal material is seen in non-distended colon. No convincing evidence for pneumoperitoneum. No unusual calcifications. The lung bases are clear. The osseous structures are intact. IMPRESSION: 1. Overall nonobstructive bowel gas pattern.
[2020-11-05] MEDS ORDERED: PROPOFOL 10 MG/ML 20 ML VIAL IV ONE (14:42)
[2020-11-05] MEDS ORDERED: LIDOCAINE 1% INJ 10MG/ML (20 ML MDV) ONE (14:42)
[2020-11-05] MEDS ORDERED: fentaNYL (PF) 50 MCG/ML 2 ML AMP ONE (14:42)
[2020-11-05] MEDS ORDERED: MIDAZOLAM 2 MG/2 ML VIAL ONE (14:42)
--- NOTE | 2020-11-05 14:45 | P.HPIHPCON ---
History of Present Illness H&P Date: 11/05/20 Chief Complaint: Right ureteral calculi This is a 60-year-old male with history of 6 mm right proximal stone. He is symptomatic secondary to stone. Discussed the option of ureteroscopy versus ESWL. Discussed the risk and benefit of each approach. He agreed to proceed with right-sided ureteroscopy. Understood the risk which includes but not limited to bleeding, infection, injury to the ureter. He understood all the risk and agreed to proceed with right-sided ureteroscopy, with holmium laser lithotripsy, stone basketing and stent placement Consent for Procedure: I have explained the operation/procedure to the patient, including the risks, benefits, side effects, alternative therapies (including not receiving the proposed treatment or service), the likelihood of the patient achieving his/her goals, and potential recuperation problems for the procedure/sedation/analgesia, as well as any blood products, if indicated. I also explained to the patient the risks, benefits and side effects of the alternatives, as well as the risks related to not receiving the proposed procedure, care, treatment, or services. - Constitutional Constitutional: Denies chills, Denies fever - Cardiovascular Cardiovascular: Denies chest pain, Denies shortness of breath - Respiratory Respiratory: Denies cough, Denies 7 - Gastrointestinal Gastrointestinal: Denies abdominal pain, Denies diarrhea, Denies nausea, Denies vomiting - Genitourinary (Female) Genitourinary: Reports flank pain Past Medical History Past Medical History: Deep Vein Thrombosis (DVT), Hypertension Additional Past Medical History / Comment(s): kidney stones. DVT LT LEG AFTER A BREAK History of Any Multi-Drug Resistant Organisms: None Reported Past Surgical History: Appendectomy Past Anesthesia/Blood Transfusion Reactions: No Reported Reaction Past Psychological History: No Psychological Hx Reported Smoking Status: Former smoker Past Alcohol Use History: Occasional Past Drug Use History: None Reported - Past Family History Mother Family Medical History: Cancer Medications and Allergies Home Medications Medication Instructions Recorded Confirmed Type HYDROcodone/APAP 5-325MG [[place] 1 tab PO Q6HR PRN #10 tab 10/26/20 11/05/20 Rx 5-325] Ondansetron [Zofran ODT] 4 mg PO Q8HR PRN #15 tab 10/26/20 11/05/20 Rx Tamsulosin [Flomax] 0.4 mg PO DAILY #14 cap 10/26/20 11/05/20 Rx Acetaminophen Tab [Tylenol Tab] 1,000 mg PO Q6HR PRN 11/04/20 11/05/20 History Losartan Potassium 50 mg PO HS 11/04/20 11/05/20 History Allergies Allergy/AdvReac Type Severity Reaction Status Date / Time No Known Allergies Allergy Verified 11/05/20 13:20 Surgical - Exam Vital Signs Temp Pulse Resp BP Pulse Ox 98.7 F 78 16 157/90 97 11/05/20 13:22 11/05/20 13:22 11/05/20 13:22 11/05/20 13:22 11/05/20 13:22 - General well developed, well nourished, no distress, no pain - ENT normal nares, normal mucosa - Respiratory normal expansion, normal respiratory effort - Abdomen Abdomen: soft, non tender Assessment and Plan Assessment: 60-year-old male with history of a 6 mm right-sided ureteral stone -Or for right-sided ureteroscopy, holmium laser lithotripsy, stone basketing and stent placement
[2020-11-05] MEDS ORDERED: IOPAMIDOL-370 50ML BTL MISCELLANE ONE ×2 (15:11)
[2020-11-05 16:02] VITALS: TEMP 96.8
--- NOTE | 2020-11-05 16:13 | FL ---
EXAMINATION TYPE: FL urography retrograde DATE OF EXAM: 11/05/2020 COMPARISON: NONE HISTORY: CYSTO. RT URETERAL STONE. TECHNIQUE: Fluoroscopy. FINDINGS: CYSTO. RT URETERAL STONE. 36 SECS FL. 2 IMAGES SAVED. IMPRESSION: As Above.
[2020-11-05 16:14] VITALS: RESP 16
--- NOTE | 2020-11-05 16:36 | P.OP ---
Date of Procedure: 11/05/20 Preoperative Diagnosis: Right ureteral calculi Postoperative Diagnosis: Same Procedure(s) Performed: Cystoscopy, right ureteroscopy, retrograde pyelogram, holmium laser lithotripsy, stone basketing, ureteral balloon dilation and stent placement Implants: 6-Filipino by 26 cm stent Anesthesia: GLEN Surgeon: Juan C Samano Estimated Blood Loss (ml): 5 Pathology: other (Right ureteral stone) Condition: stable Disposition: PACU Indications for Procedure: This is a 60-year-old male with history of 6 mm right proximal stone. He is symptomatic secondary to stone. Discussed the option of ureteroscopy versus ESWL. Discussed the risk and benefit of each approach. He agreed to proceed with right-sided ureteroscopy. Understood the risk which includes but not limited to bleeding, infection, injury to the ureter. He understood all the risk and agreed to proceed with right-sided ureteroscopy, with holmium laser lithotripsy, stone basketing and stent placement Operative Findings: Right distal stone, significant edema at the site of stone impaction Description of Procedure: Patient was brought to the operating room, general anesthesia was induced. He was prepped and draped in sterile fashion a placemed in dorsal lithotomy position. Cystoscopy fitted with 21-Filipino sheath was inserted per urethra, cystoscopy was performed which showed no abnormality within the bladder. Of note patient had a significantly enlarged median lobe. The right ureteral orifice was visualized and intubated with a 6-Filipino open-ended catheter, retrograde pyelogram was performed which showed a filling defect in the distal ureter with severe hydroureteronephrosis. Next a sensor wire was advanced through the catheter the catheter was removed with the wire in place. Next a ureteral balloon dilator was advanced into the distal ureter and the distal ureter was dilated under fluoroscopy. Next the balloon dilator was removed the wire in place. Next a semirigid ureteroscope was inserted per urethra and advanced up the ureteral orifice, the stone was visualized in the distal ureter, of note the site of stone impaction there was significant ureteral edema. Using the holmium laser the stone was fragmented into small fragments, stone fragments were removed using the ZeroTip stone basket. At this time the scope was advanced all the way up to the UPJ and there was no evidence of any additional fragments, retrograde Polygram was performed showed no filling defect within the kidney. Pullback ureteroscopy was performed which showed no residual fragments or injury to the ureter. As the ureteroscope was withdrawn and a sensor wire was advanced. Next a 6-Filipino by 26 cm stent was passed over the wire the proximal curl was was on fluoroscopy and the distal curl was visualized and cystoscope. The bladder was emptied and of the case. The patient tolerated the procedure well was taken to PACU in stable condition
[2020-11-05 16:53] VITALS: BP 168/91; PULSE 86
== END 2020-11-05 17:05 | disposition home or self-care (01) ==
LOC: OR 12:49
PROVIDERS: ATTEND Urology
DX: N13.2 Hydronephrosis with renal and ureteral calculous obstruction (principal); I10 Essential (primary) hypertension; N28.9 Disorder of kidney and ureter, unspecified; J45.909 Unspecified asthma, uncomplicated; Z86.718 Personal history of other venous thrombosis and embolism; Z87.442 Personal history of urinary calculi; Z87.81 Personal history of (healed) traumatic fracture; Z90.49 Acquired absence of other specified parts of digestive tract; Z87.891 Personal history of nicotine dependence; Z79.899 Other long term (current) drug therapy; Z80.9 Family history of malignant neoplasm, unspecified
CPT/HCPCS: 52356; 82365; 74420; 74018; C2625; C1758; C1769; J2250; J1100; J0690; J2405; J2001; J3010; J2704; Q9967

== ENCOUNTER → 2021-03-20 | Outpatient (CLI) | payer OTHER ==
--- NOTE | 2021-03-20 16:43 | US ---
EXAMINATION TYPE: US kidneys/renal and bladder DATE OF EXAM: 03/20/2021 COMPARISON: NONE CLINICAL HISTORY: N20.1 CALCULUS OF URETER. Lithotripsy 2 months ago, assess renals now, h/o renal st ones 3 times EXAM MEASUREMENTS: Right Kidney: 10.5 x 5.1 x 5.3 cm Left Kidney: 10.8 x 4.9 x 6.3 cm Right Kidney: No hydronephrosis or masses seen Left Kidney: No hydronephrosis or masses seen Bladder: wnl Bilateral Jets seen: Yes No echogenic foci to suggest renal lithiasis evident. IMPRESSION: 1. Normal renal ultrasound
== END | disposition home or self-care (01) ==
LOC: RADUSWWP 08:34
PROVIDERS: ATTEND Urology
DX: N20.1 Calculus of ureter (principal)
CPT/HCPCS: 76770

== ENCOUNTER 2021-08-17 10:57 | Inpatient (IN) | payer OTHER ==
[2021-08-17] MEDS ORDERED: ALBUTEROL HFA INHALER INHALATION STA (14:00)
[2021-08-17] MEDS ORDERED: ACETAMINOPHEN TAB 500 MG TAB PO STA (14:00)
[2021-08-17] MEDS ORDERED: IBUPROFEN 600 MG TAB PO STA (14:01)
--- NOTE | 2021-08-17 14:04 | ED ---
General Adult HPI - General Chief complaint: Upper Respiratory Infection Stated complaint: covid+, wants infusion Time Seen by Provider: 08/17/21 13:18 Source: patient, RN notes reviewed Mode of arrival: wheelchair Limitations: no limitations - History of Present Illness Initial comments: 61-year-old male presents to the emergency room for a chief complaint of antibody infusion. Patient states he is Covid positive. States he tested positive on August 11 and symptoms developed on August 13. Patient states he feel short of breath. States he has a fever and body aches. He also has a cough that will not go away. He states that his doctor was trying to get him the infusion outpatient but it was not working out streaking to the ER for infusion.Patient has no other complaints at this time including chest pain, abdominal pain, nausea or vomiting, or visual changes. - Related Data Home Medications Medication Instructions Recorded Confirmed Losartan Potassium 50 mg PO HS 11/04/20 08/17/21 Ascorbic Acid [Vitamin C] 1,000 mg PO DAILY 08/17/21 08/17/21 Aspirin EC [Ecotrin Low Dose] 81 mg PO DAILY 08/17/21 08/17/21 Cholecalciferol [Vitamin D3 (125 125 mcg PO DAILY 08/17/21 08/17/21 Mcg = 5000 Iu)] Zinc 50 mg PO DAILY 08/17/21 08/17/21 Allergies Allergy/AdvReac Type Severity Reaction Status Date / Time No Known Allergies Allergy Verified 08/17/21 14:12 Review of Systems ROS Statement: Those systems with pertinent positive or pertinent negative responses have been documented in the HPI. ROS Other: All systems not noted in ROS Statement are negative. Past Medical History Past Medical History: Asthma, Deep Vein Thrombosis (DVT), Hypertension Additional Past Medical History / Comment(s): kidney stones. DVT LT LEG AFTER A BREAK History of Any Multi-Drug Resistant Organisms: None Reported Past Surgical History: Appendectomy Past Anesthesia/Blood Transfusion Reactions: No Reported Reaction Past Psychological History: No Psychological Hx Reported Smoking Status: Never smoker Past Alcohol Use History: Occasional Past Drug Use History: None Reported - Past Family History Mother Family Medical History: Cancer General Exam Limitations: no limitations General appearance: alert, in no apparent distress Head exam: Present: atraumatic Eye exam: Present: normal appearance, PERRL, EOMI. Absent: scleral icterus, conjunctival injection ENT exam: Present: normal exam, mucous membranes moist Neck exam: Present: normal inspection, full ROM. Absent: tenderness Respiratory exam: Present: normal lung sounds bilaterally. Absent: respiratory distress, wheezes Cardiovascular Exam: Present: regular rate, normal rhythm, normal heart sounds GI/Abdominal exam: Present: soft, normal bowel sounds. Absent: distended, tenderness Course Vital Signs 08/17/21 08/17/21 08/17/21 12:41 15:07 15:27 Temperature 103.9 F H Pulse Rate 118 H 115 H Respiratory 22 20 20 Rate Blood Pressure 139/77 145/78 O2 Sat by Pulse 91 L 94 L Oximetry Medical Decision Making - Medical Decision Making Pt presents with temperature of 103.9 and reflexive tachycardia of 118. He was given Motrin and Tylenol as he had not had any antipyretics yet. Patient was 87% on room air and does appear dyspneic. He was started on oxygen, currently saturating at 94% on 2 L. CBC is unremarkable. CMP shows some light transaminitis which is to be expected. Inflammatory markers are elevated. A d- dimer 0.69. Chest x-ray does show a COVID-19 pneumonia. Case was discussed with Dr. Fuentes who does accept admission, requests CT angiogram of the chest as well as consultation to pulmonology - Lab Data Result diagrams: 08/17/21 14:36 08/17/21 14:36 Lab Results 08/17/21 08/17/21 08/17/21 Range/Units 14:36 14:36 14:36 WBC 7.0 (3.8-10.6) k/uL RBC 5.12 (4.30-5.90) m/uL Hgb 15.7 (13.0-17.5) gm/dL Hct 48.2 (39.0-53.0) % MCV 94.1 (80.0-100.0) fL MCH 30.7 (25.0-35.0) pg MCHC 32.6 (31.0-37.0) g/dL RDW 13.0 (11.5-15.5) % Plt Count 135 L (150-450) k/uL MPV 9.9 Neutrophils % 88 % Lymphocytes % 8 % Monocytes % 3 % Eosinophils % 0 % Basophils % 0 % Neutrophils # 6.1 (1.3-7.7) k/uL Lymphocytes # 0.6 L (1.0-4.8) k/uL Monocytes # 0.2 (0-1.0) k/uL Eosinophils # 0.0 (0-0.7) k/uL Basophils # 0.0 (0-0.2) k/uL PT 11.0 (9.0-12.0) sec INR 1.0 (<1.2) APTT 25.5 (22.0-30.0) sec D-Dimer 0.69 H (<0.60) mg/L FEU Sodium 133 L (137-145) mmol/L Potassium 4.1 (3.5-5.1) mmol/L Chloride 98 (98-107) mmol/L Carbon Dioxide 25 (22-30) mmol/L Anion Gap 10 mmol/L BUN 21 H (9-20) mg/dL Creatinine 1.10 (0.66-1.25) mg/dL Est GFR (CKD-EPI)AfAm 84 (>60 ml/min/1.73 sqM) Est GFR (CKD-EPI)NonAf 73 (>60 ml/min/1.73 sqM) Glucose 97 (74-99) mg/dL Plasma Lactic Acid Dar (0.7-2.0) mmol/L Calcium 8.6 (8.4-10.2) mg/dL Magnesium 1.7 (1.6-2.3) mg/dL Total Bilirubin 0.8 (0.2-1.3) mg/dL AST 129 H (17-59) U/L ALT 59 H (4-49) U/L Alkaline Phosphatase 44 (38-126) U/L Lactate Dehydrogenase 1545 H (313-618) U/L C-Reactive Protein 23.9 H (<1.0) mg/dL Total Protein 6.4 (6.3-8.2) g/dL Albumin 3.5 (3.5-5.0) g/dL 08/17/21 Range/Units 14:36 WBC (3.8-10.6) k/uL RBC (4.30-5.90) m/uL Hgb (13.0-17.5) gm/dL Hct (39.0-53.0) % MCV (80.0-100.0) fL MCH (25.0-35.0) pg MCHC (31.0-37.0) g/dL RDW (11.5-15.5) % Plt Count (150-450) k/uL MPV Neutrophils % % Lymphocytes % % Monocytes % % Eosinophils % % Basophils % % Neutrophils # (1.3-7.7) k/uL Lymphocytes # (1.0-4.8) k/uL Monocytes # (0-1.0) k/uL Eosinophils # (0-0.7) k/uL Basophils # (0-0.2) k/uL PT (9.0-12.0) sec INR (<1.2) APTT (22.0-30.0) sec D-Dimer (<0.60) mg/L FEU Sodium (137-145) mmol/L Potassium (3.5-5.1) mmol/L Chloride (98-107) mmol/L Carbon Dioxide (22-30) mmol/L Anion Gap mmol/L BUN (9-20) mg/dL Creatinine (0.66-1.25) mg/dL Est GFR (CKD-EPI)AfAm (>60 ml/min/1.73 sqM) Est GFR (CKD-EPI)NonAf (>60 ml/min/1.73 sqM) Glucose (74-99) mg/dL Plasma Lactic Acid Dar 1.2 (0.7-2.0) mmol/L Calcium (8.4-10.2) mg/dL Magnesium (1.6-2.3) mg/dL Total Bilirubin (0.2-1.3) mg/dL AST (17-59) U/L ALT (4-49) U/L Alkaline Phosphatase (38-126) U/L Lactate Dehydrogenase (313-618) U/L C-Reactive Protein (<1.0) mg/dL Total Protein (6.3-8.2) g/dL Albumin (3.5-5.0) g/dL Disposition Clinical Impression: COVID, Pneumonia due to COVID-19 virus, Acute respiratory failure with hypoxia Disposition: ADMITTED IP TO THIS HOSP Is patient prescribed a controlled substance at d/c from ED?: No Referrals: Dario Hooper MD [Primary Care Provider] - 1-2 days Time of Disposition: 15:44
[2021-08-17 14:59] LABS: Basophils % (A) 0 %; Eosinophils % (A) 0 %; HCT 48.2 % (39.0-53.0); HGB 15.7 gm/dL (13.0-17.5); Lymphocytes # (A) 0.6 k/uL (1.0-4.8); Lymphocytes % (A) 8 %; MCH 30.7 pg (25.0-35.0); MCHC 32.6 g/dL (31.0-37.0); MCV 94.1 fL (80.0-100.0); Mean Platelet Volume 9.9; Monocytes # (A) 0.2 k/uL (0-1.0); Monocytes % (A) 3 %; Neutrophils # (A) 6.1 k/uL (1.3-7.7); Neutrophils % (A) 88 %; Platelet Count 135 k/uL (150-450); RBC 5.12 m/uL (4.30-5.90)
--- NOTE | 2021-08-17 15:02 | XR ---
EXAMINATION TYPE: XR chest 1V portable DATE OF EXAM: 08/17/2021 COMPARISON: NONE HISTORY: URI and positive covid. TECHNIQUE: Single AP portable upright view of the chest is obtained. FINDINGS: There are bilateral multifocal increased opacities greater in the right lung. The cardiac silhouette size is upper limits of normal. The osseous structures are intact. IMPRESSION: Bilateral multifocal increased opacities consistent with covid-19 infection.
[2021-08-17 15:09] LABS: Partial Thromboplastin Time 25.5 sec (22.0-30.0)
[2021-08-17 15:11] LABS: Albumin 3.5 g/dL (3.5-5.0); Calcium 8.6 mg/dL (8.4-10.2); Magnesium 1.7 mg/dL (1.6-2.3); Potassium 4.1 mmol/L (3.5-5.1); Total Bilirubin 0.8 mg/dL (0.2-1.3); Total Protein 6.4 g/dL (6.3-8.2)
[2021-08-17 15:23] LABS: C Reactive Protein 23.9 mg/dL (<1.0)
[2021-08-17] MEDS ORDERED: MORPHINE SULFATE 4 MG/ML SYRINGE IV PRN (15:40)
[2021-08-17] MEDS ORDERED: DEXAMETHASONE SOD PHOSPHATE 10 MG/ML 1 ML VIAL IVP STA (15:40)
[2021-08-17] MEDS ORDERED: NALOXONE 0.4 MG/ML 1 ML VIAL IV PRN (15:40)
[2021-08-17] MEDS: ALBUTEROL HFA INHALER INHALATION SCH ×2 (15:45→20:07)
--- NOTE | 2021-08-17 16:19 | CT ---
EXAMINATION TYPE: CT chest angio for PE DATE OF EXAM: 08/17/2021 COMPARISON: Radiograph 08/17/2021 HISTORY: 61-year-old male Shortness of breath, covid. TECHNIQUE: Contiguous axial scanning of the chest performed with IV Contrast, patient injected with 1 00 mL of Isovue 370. Coronal/sagittal MIP reconstructions performed. CT DLP: 419.1 mGycm Automated exposure control for dose reduction was used. FINDINGS: Heart normal size with small anterior pericardial effusion measuring 6 mm. No flattening of the inter ventricular septum or reflux of contrast into the hepatic veins. Aorta normal caliber with very direct takeoff of the left vertebral artery directly from the aortic a rch. Borderline suboptimal contrast bolus. Additional limitation due to breathing motion. No large central or definite lobar branch pulmonary embolus. Many of the segmental and more distal arterial branches are limited and nondiagnostic. No thoracic lymphadenopathy by CT size criteria. Patchy and confluent groundglass opacities bilaterally, right greater than left. No pleural effusion. No pneumothorax. Visualized upper abdomen shows no gross abnormality. Bones: No osseous destructive process. IMPRESSION: 1. SUBOPTIMAL CONTRAST BOLUS AND BREATHING MOTION ARTIFACT. NO LARGE CENTRAL OR DEFINITE LOBAR BRANCH PULMONARY EMBOLUS. MANY OF THE SEGMENTAL AND MORE DISTAL ARTERIAL BRANCHES ARE NONDIAGNOSTIC AND EMB BENJI IN THESE LOCATIONS CANNOT BE EXCLUDED ON THE BASIS OF THIS EXAM. 2. BILATERAL PATCHY AND CONFLUENT GROUNDGLASS COVID PNEUMONIA, RIGHT GREATER THAN LEFT.
[2021-08-17] MEDS: SODIUM CHLORIDE 0.9% 1,000 ML IV SCH (16:56)
[2021-08-17] MEDS: ENOXAPARIN 40 MG/0.4 ML SYRINGE SQ SCH (18:43)
[2021-08-17] MEDS: LOSARTAN 50 MG TAB PO SCH (20:10)
--- NOTE | 2021-08-17 22:47 | P.HPIM ---
History of Present Illness H&P Date: 08/17/21 Chief Complaint: COVID-19 pneumonitis, acute hypoxia, fever and chills HISTORY OF PRESENT ILLNESS 61-year-old male one of Dr. Hooper patient with past medical history of asthma, DVT, hypertension hyperlipidemia and kidney stone who apparently developed to being sick for over a week and ended up having fever chills and body ache went to [facility] and was tested for COVID-19 on Tuesday came back positive he contacted his primary care was supposed to go for monoclonal anti- body which was delay and was not called until today. Patient today become extremely sick developed to have worsening fever or chills abdominal pain with nausea without vomiting worsening shortness of breath with cough productive phlegm and finally become extremely hypoxic with minimal exertion. Ended up coming to the emergency department at [facility] where was seen and evaluated his oxygen level was in the mid 80. Patient was started on oxygen, updraft tr eatment,Decadron along with multivitamins. Patient will be admitted to the hospital will be seen pulmonary watch his marker watch for any worsening symptoms with his high risk of clotting and coagulopathy patient be started on Lovenox as well. REVIEW OF SYSTEMS Constitutional: positive fever and chills with night sweats, no weight change, generalized weakness fatigue and tiredness. EENT: No headache. No blurred vision or double vision, no loss of vision. No loss of Hearing, no ringing in the ears, no dizziness. No nasal drainage or congestion. No epistaxis. No sore throat. Lungs: positive shortness of breath cough mild wheezes and productive sputum. Cardiovascular: No chest pain, no lower extremity edema. No palpitations. No paroxysmal nocturnal dyspnea. No orthopnea. No lightheadedness or dizziness. No syncopal episodes. Abdominal: positive abdominal pain. No nausea, vomiting. No diarrhea. No constipation. No bloody or tarry stools.. No loss of appetite. Genitourinary: No dysuria, increased frequency, urgency. No urinary retention. Musculoskeletal: No myalgias. No muscle weakness, no gait dysfunction, no frequent falls. No back pain. No neck pain. Integumentary: No wounds, no lesions. No rash or pruritus. No unusual bruising. No change in hair or nails. Neurologic: No aphasia. No facial droop. No change in mentation. No head injury. No headache. No paralysis. No paresthesia. Psychiatric: No depression. No anxiety. No mood swings. Endocrine: No abnormal blood sugars. No weight change. No excessive sweating or thirst. No cold intolerance. SOCIAL HISTORY he does not smoke, no alcohol abuse, no marijuana use is and lives with his . FAMILY HISTORY his father age 71 from leukemia, mother at 74 from throat cancer, patient has 3 children with no major medical problem and 3 sibling are all living and well. PHYSICAL EXAMINATION Gen: This is well-developed 61-year-old male does not look in any respiratory distress while he is resting with still have oxygen on 4 L to keep his pulse ox above 90 percentile. HEENT: Head is atraumatic, normocephalic. Pupils equal, round. Sclerae is anicteric. NECK: Supple. No JVD. No lymphadenopathy. No thyromegaly. LUNGS: decrease + bilaterally with fine rhonchi mild crackles in the bases specially the right side with mild expiratory wheezes. HEART: Regular rate and rhythm. No murmur. ABDOMEN: Soft. Bowel sounds are present. No masses. No tenderness. EXTREMITIES: No pedal edema. No calf tenderness. NEUROLOGICAL: Patient is awake, alert and oriented x3. Cranial nerves 2 through 12 are grossly intact. ASSESSMENT AND PLAN 1.COVID-19 pneumonitis: Patient be admitted to the hospital, continue to watch his COVID-19 marker, anticoagulation be started continue patient on oxygen keep his pulse ox above 90 percentile, will consult pulmonary and infectious disease if needed as for whether benefit from using Remdisivir. 2 severe hypoxia: Most likely from COVID-19, will watch for any secondary infection as well continue O2 to keep his pulse ox 90 percentile and still use updraft treatment. 3 history of asthma: Has been on albuterol inhaler along with dexamethasone. 4 hypertension: Has been on losartan 50 mg a day we'll resume medication. 6 DVT venous thrombosis patient most likely has coagulopathy was start on Lovenox 40 mg daily. 7 GI prophylaxis: Patient be on Pepcid 20 mg a day along with Zofran on as needed basis. 8 CODE STATUS: Full code. 9. COVID-19 testingwas positive Patient will be admitted to the hospital for a minimum of 2 night stay. Past Medical History Past Medical History: Asthma, Deep Vein Thrombosis (DVT), Hypertension Additional Past Medical History / Comment(s): kidney stones. DVT LT LEG AFTER A BREAK History of Any Multi-Drug Resistant Organisms: None Reported Past Surgical History: Appendectomy Past Anesthesia/Blood Transfusion Reactions: No Reported Reaction Past Psychological History: No Psychological Hx Reported Smoking Status: Never smoker Past Alcohol Use History: Occasional Past Drug Use History: None Reported - Past Family History Mother Family Medical History: Cancer Medications and Allergies Home Medications Medication Instructions Recorded Confirmed Type Losartan Potassium 50 mg PO HS 11/04/20 08/17/21 History Ascorbic Acid [Vitamin C] 1,000 mg PO DAILY 08/17/21 08/17/21 History Aspirin EC [Ecotrin Low Dose] 81 mg PO DAILY 08/17/21 08/17/21 History Cholecalciferol [Vitamin D3 (125 125 mcg PO DAILY 08/17/21 08/17/21 History Mcg = 5000 Iu)] Zinc 50 mg PO DAILY 08/17/21 08/17/21 History Allergies Allergy/AdvReac Type Severity Reaction Status Date / Time No Known Allergies Allergy Verified 08/17/21 14:12 Physical Exam Vitals: Vital Signs Temp Pulse Resp BP Pulse Ox 08/17/21 16:54 99.6 F 18 95 08/17/21 15:27 115 H 20 145/78 94 L 08/17/21 15:07 20 08/17/21 12:41 103.9 F H 118 H 22 139/77 91 L Intake and Output 08/17/21 08/17/21 08/17/21 06:59 14:59 22:59 Other: Weight 97.522 kg Results CBC & Chem 7: 08/17/21 14:36 08/17/21 14:36 Labs: Abnormal Lab Results - Last 24 Hours (Table) 08/17/21 08/17/21 08/17/21 Range/Units 14:36 14:36 14:36 Plt Count 135 L (150-450) k/uL Lymphocytes # 0.6 L (1.0-4.8) k/uL D-Dimer 0.69 H (<0.60) mg/L FEU Sodium 133 L (137-145) mmol/L BUN 21 H (9-20) mg/dL AST 129 H (17-59) U/L ALT 59 H (4-49) U/L Lactate Dehydrogenase 1545 H (313-618) U/L C-Reactive Protein 23.9 H (<1.0) mg/dL
[2021-08-18] MEDS: IBUPROFEN 400 MG TAB PO PRN ×2 (01:40→22:15)
[2021-08-18] MEDS: ZINC SULFATE 220 MG CAP PO SCH (09:09)
[2021-08-18] MEDS: ALBUTEROL HFA INHALER INHALATION SCH ×4 (09:09→20:09)
[2021-08-18] MEDS: ENOXAPARIN 40 MG/0.4 ML SYRINGE SQ SCH (09:09)
[2021-08-18] MEDS: ASPIRIN 81 MG PO SCH (09:09)
[2021-08-18] MEDS: DEXAMETHASONE SOD PHOSPHATE 10 MG/ML 1 ML VIAL IVP SCH (09:10)
[2021-08-18] MEDS: CHOLECALCIFEROL 125 MCG (5000 IU) TABLET PO SCH (09:10)
[2021-08-18] MEDS: ASCORBIC ACID 500 MG TAB PO SCH (09:10)
[2021-08-18] MEDS: SODIUM CHLORIDE 0.9% 1,000 ML IV SCH (09:10)
--- NOTE | 2021-08-18 10:43 | P.CNPUL ---
History of Present Illness Consult date: 08/18/21 Requesting physician: Fidencio Fuentes Reason for consult: dyspnea, abnormal CXR/CT Chief complaint: Shortness of breath, fever, cough History of present illness: This a very pleasant 61-year-old male patient with a history of hypertension, nephrolithiasis requiring stent placement to the right ureter who follows with Dr. Hooper as his primary care provider. He presented here to the emergency room yesterday with complaints of increasing shortness breath, cough congestion fever since 08/10/2021. He tested positive on 08/11/2021 with COVID-19. He is not vaccinated. He is currently seen in the emergency department. Currently resting fairly comfortably in bed. He is on 2 L nasal cannula to maintain O2 saturation is a low 90s. Chest x-ray does reveal evidence of bilateral multifocal opacities CT angiogram was suboptimal but no large central or definite lobar branch pulmonary emboli. Again bilateral patchy groundglass opacities consistent with COVID-19 pneumonia. Right greater than left. White count 10.0. Hemoglobin 15.7. Platelets 135. Lymphocytes 0.6. D-dimer 0.69. Sodium 133. Potassium 4.1. Creatinine 1.1. AST 129. ALT 59. LDH 1545. C- reactive protein 23.9. Pro-calcitonin 0.52. He's been initiated on Decadron, Lovenox, vitamin supplements. Outside the window for Remdesivir. Not meeting criteria for Baricitinib. Review of Systems REVIEW OF SYSTEMS: CONSTITUTIONAL: Positive for fever. Denies any recent significant weight loss or weight gain. EYES: Denies change in vision. EARS, NOSE, MOUTH, THROAT: Denies headaches, denies sore throat. CARDIOVASCULAR: Denies chest pain, palpitations or syncopal episodes. RESPIRATORY: Positive for shortness of breath, cough, congestion no hemoptysis. GASTROINTESTINAL: Denies change in appetite, denies abdominal pain GENITOURINARY: Denies hematuria, denies infections. MUSKULOSKELETAL: Denies pain, denies swelling. INTEGUMENTARY: Denies rash, denies eczema. NEUROLOGICAL: Denies recent memory loss, no recent seizure activity. PSYCHIATRIC: Denies anxiety, denies depression. HEMATOLOGIC/LYMPHATIC: Denies anemia, denies enlarged lymph nodes. Past Medical History Past Medical History: Asthma, Deep Vein Thrombosis (DVT), Hypertension, Liver Disease, Renal Disease, Sleep Apnea/CPAP/BIPAP Additional Past Medical History / Comment(s): DVT R leg after fracture, nephrolithiasis/surgically removed, migraines, TEODORO/no device, fatty liver. History of Any Multi-Drug Resistant Organisms: None Reported Past Surgical History: Appendectomy, Hernia Repair Additional Past Surgical History / Comment(s): R ureteroscopy/balloon dilation/lithotripsy and basketing, colonoscopy, R eye glass injury/lens implant, vasectomy. Past Anesthesia/Blood Transfusion Reactions: No Reported Reaction Additional Past Anesthesia/Blood Transfusion Reaction / Comment(s): Pt has clausterphobia Smoking Status: Light tobacco smoker - Past Family History Mother Family Medical History: Cancer Additional Family Medical History / Comment(s): Cancer on her lip Father Family Medical History: Cancer Additional Family Medical History / Comment(s): Leukemia. Medications and Allergies Home Medications Medication Instructions Recorded Confirmed Type Losartan Potassium 50 mg PO HS 11/04/20 08/17/21 History Ascorbic Acid [Vitamin C] 1,000 mg PO DAILY 08/17/21 08/17/21 History Aspirin EC [Ecotrin Low Dose] 81 mg PO DAILY 08/17/21 08/17/21 History Cholecalciferol [Vitamin D3 (125 125 mcg PO DAILY 08/17/21 08/17/21 History Mcg = 5000 Iu)] Zinc 50 mg PO DAILY 08/17/21 08/17/21 History Allergies Allergy/AdvReac Type Severity Reaction Status Date / Time No Known Allergies Allergy Verified 08/17/21 14:12 Physical Exam Vitals: Vital Signs Temp Pulse Resp BP Pulse Ox 08/18/21 08:30 96.9 F L 80 16 118/78 97 08/18/21 01:35 75 18 109/84 96 08/17/21 20:31 97.5 F L 08/17/21 20:28 77 20 114/71 98 08/17/21 16:54 99.6 F 18 95 08/17/21 15:27 115 H 20 145/78 94 L 08/17/21 15:07 20 08/17/21 12:41 103.9 F H 118 H 22 139/77 91 L Intake and Output 08/17/21 08/18/21 08/18/21 22:59 06:59 14:59 Other: Weight 97.522 kg GENERAL EXAM: Alert, pleasant 61-year-old male patient, on 2 L nasal cannula, fairly comfortable in no apparent distress. HEAD: Normocephalic. EYES: Normal reaction of pupils, equal size. NOSE: Clear with pink turbinates. THROAT: No erythema or exudates. NECK: No masses, no JVD. CHEST: No chest wall deformity. LUNGS: Equal air entry with coarse crackles in the bilateral bases right greater than left. CVS: S1 and S2 normal with no audible murmur, regular rhythm. ABDOMEN: No hepatosplenomegaly, normal bowel sounds, no guarding or rigidity. SPINE: No scoliosis or deformity SKIN: No rashes CENTRAL NERVOUS SYSTEM: No focal deficits, tone is normal in all 4 extremities. EXTREMITIES: There is no peripheral edema. No clubbing, no cyanosis. Peripheral pulses are intact. Results - Laboratory Findings CBC and BMP: 08/17/21 14:36 08/17/21 14:36 PT/INR, D-dimer PT 11.0 sec (9.0-12.0) 08/17/21 14:36 INR 1.0 (<1.2) 08/17/21 14:36 D-Dimer 0.69 mg/L FEU (<0.60) H 08/17/21 14:36 Abnormal lab findings: Abnormal Labs 08/17/21 08/17/21 08/17/21 14:36 14:36 14:36 Plt Count 135 L Lymphocytes # 0.6 L D-Dimer 0.69 H Sodium 133 L BUN 21 H AST 129 H ALT 59 H Lactate Dehydrogenase 1545 H C-Reactive Protein 23.9 H Procalcitonin 08/17/21 14:36 Plt Count Lymphocytes # D-Dimer Sodium BUN AST ALT Lactate Dehydrogenase C-Reactive Protein Procalcitonin 0.52 H - Diagnostic Findings Chest x-ray: image reviewed CT scan - chest: image reviewed Assessment and Plan Assessment: 1 Acute hypoxic respiratory failure secondary to COVID-19 pneumonia. Symptoms started 08/10/2021. Tested positive on 08/11/2021. Outside the window for Remdesivir. Not meeting requirements for Baricitinib. Currently on 2 L nasal cannula. Not vaccinated. 2 Elevated inflammatory markers secondary to above 3 Mild transaminitis secondary to above 4 History of hypertension 5 History of nephrolithiasis with previous stent placement to the right ureter Plan: The patient was seen and evaluated by Dr. Root Chest x-ray, CAT scans and labs reviewed Continue Decadron, Lovenox, vitamin supplements Follow-up chest x-ray and labs in the a.m. We will continue to follow and make further recommendations based on his clinical status I, the cosigning physician, performed a history & physical examination of the patient. Lungs sounds with crackles in bilateral bases right greater than. Maintaining good O2 saturations in the 90s on 2 L/m per nasal cannula. I discussed the assessment and plan of care with my nurse practitioner, Nela Patterson. I attest to the above consultation as dictated by her. Time with Patient: Greater than 30
--- NOTE | 2021-08-18 12:58 | P.PN ---
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 Patient today become extremely sick developed to have worsening fever or chills abdominal pain with nausea without vomiting worsening shortness of breath with cough productive phlegm and finally become extremely hypoxic with minimal exertion. Ended up coming to the emergency department at [facility] where was seen and evaluated his oxygen level was in the mid 80. Patient was started on oxygen, updraft ayesha tment,Decadron along with multivitamins. Patient will be admitted to the hospital will be seen pulmonary watch his marker watch for any worsening symptoms with his high risk of clotting and coagulopathy patient be started on Lovenox as well. 08/18: Patient is seen today in the emergency center waiting for bed on the [facility] floor. Pulse ox is 97% on 2 L nasal cannula. He has been afebrile, heart rate 80, blood pressure 118/78. Patient has been seen by pulmonary medicine and is outside the window for Remdesivir and does not meet criteria for Baricitinib. Patient is on Ventolin inhaler, vitamin supplements, dexamethasone 6 mg IV daily, Lovenox 40 mg subcu daily. REVIEW OF SYSTEMS Constitutional: positive fever and chills with night sweats-improved, no weight change, generalized weakness fatigue and tiredness. EENT: No headache. No blurred vision or double vision, no loss of vision. No loss of Hearing, no ringing in the ears, no dizziness. No nasal drainage or congestion. No epistaxis. No sore throat. Lungs: positive shortness of breath cough mild wheezes and productive sputum. Cardiovascular: No chest pain, no lower extremity edema. No palpitations. No paroxysmal nocturnal dyspnea. No orthopnea. No lightheadedness or dizziness. No syncopal episodes. Abdominal: positive abdominal pain. No nausea, vomiting. No diarrhea. No constipation. No bloody or tarry stools.. No loss of appetite. Genitourinary: No dysuria, increased frequency, urgency. No urinary retention. Musculoskeletal: No myalgias. No muscle weakness, no gait dysfunction, no frequent falls. No back pain. No neck pain. Integumentary: No wounds, no lesions. No rash or pruritus. No unusual bruising. No change in hair or nails. Neurologic: No aphasia. No facial droop. No change in mentation. No head injury. No headache. No paralysis. No paresthesia. Psychiatric: No depression. No anxiety. No mood swings. Endocrine: No abnormal blood sugars. No weight change. No excessive sweating or thirst. No cold intolerance. PHYSICAL EXAMINATION Gen: This is well-developed 61-year-old male does not look in any respiratory distress while he is resting in bed with still have oxygen on 2 L to keep his pulse ox above 90 percentile. HEENT: Head is atraumatic, normocephalic. Pupils equal, round. Sclerae is anicteric. NECK: Supple. No JVD. No lymphadenopathy. No thyromegaly. LUNGS: decrease + bilaterally with fine rhonchi mild crackles in the bases specially the right side with mild expiratory wheezes. HEART: Regular rate and rhythm. No murmur. ABDOMEN: Soft. Bowel sounds are present. No masses. No tenderness. EXTREMITIES: No pedal edema. No calf tenderness. NEUROLOGICAL: Patient is awake, alert and oriented x3. Cranial nerves 2 through 12 are grossly intact. ASSESSMENT AND PLAN 1. Sepsis secondary to COVID-19 pneumonitis: Patient be admitted to the hospital, continue Ventolin inhaler, vitamin supplements, dexamethasone 6 mg IV daily, Lovenox 40 mg subcu daily. 2 severe hypoxia: Most likely from COVID-19, will watch for any secondary infection as well continue O2 to keep his pulse ox 90 percentile and still use updraft treatment. 3 history of asthma: Has been on albuterol inhaler along with dexamethasone. 4 hypertension: Has been on losartan 50 mg a day we'll resume medication. 6 DVT venous thrombosis patient most likely has coagulopathy was start on Lovenox 40 mg daily. 7 GI prophylaxis: Patient be on Pepcid 20 mg a day along with Zofran on as needed basis. 8 CODE STATUS: Full code. 9. COVID-19 testing was positive DISCHARGE PLAN Possibly home on Wednesday Impression and plan of care have been directed as dictated by the signing p susanne. Pema Villagomez nurse practitioner acting as scribe for signing physician. Objective - Vital Signs Vital signs: Vital Signs Temp 96.9 F L 08/18/21 08:30 Pulse 80 08/18/21 08:30 Resp 16 08/18/21 08:30 BP 118/78 08/18/21 08:30 Pulse Ox 97 08/18/21 08:30 Intake & Output 08/17/21 08/18/21 08/18/21 18:59 06:59 18:59 Weight 97.522 kg 97.522 kg - Labs CBC & Chem 7: 08/17/21 14:36 08/17/21 14:36 Labs: Abnormal Lab Results - Last 24 Hours (Table) 08/17/21 08/17/21 08/17/21 Range/Units 14:36 14:36 14:36 Plt Count 135 L (150-450) k/uL Lymphocytes # 0.6 L (1.0-4.8) k/uL D-Dimer 0.69 H (<0.60) mg/L FEU Sodium 133 L (137-145) mmol/L BUN 21 H (9-20) mg/dL AST 129 H (17-59) U/L ALT 59 H (4-49) U/L Lactate Dehydrogenase 1545 H (313-618) U/L C-Reactive Protein 23.9 H (<1.0) mg/dL Procalcitonin (0.02-0.09) ng/mL 08/17/21 Range/Units 14:36 Plt Count (150-450) k/uL Lymphocytes # (1.0-4.8) k/uL D-Dimer (<0.60) mg/L FEU Sodium (137-145) mmol/L BUN (9-20) mg/dL AST (17-59) U/L ALT (4-49) U/L Lactate Dehydrogenase (313-618) U/L C-Reactive Protein (<1.0) mg/dL Procalcitonin 0.52 H (0.02-0.09) ng/mL
[2021-08-18] MEDS: ACETAMINOPHEN TAB 500 MG TAB PO PRN (19:36)
[2021-08-18] MEDS: LOSARTAN 50 MG TAB PO SCH (22:15)
[2021-08-19] MEDS: SODIUM CHLORIDE 0.9% 1,000 ML IV SCH ×3 (06:27→21:45)
[2021-08-19] MEDS: DEXAMETHASONE SOD PHOSPHATE 10 MG/ML 1 ML VIAL IVP SCH (07:17)
[2021-08-19] MEDS: ENOXAPARIN 40 MG/0.4 ML SYRINGE SQ SCH (07:17)
[2021-08-19] MEDS: ZINC SULFATE 220 MG CAP PO SCH (07:17)
[2021-08-19] MEDS: CHOLECALCIFEROL 125 MCG (5000 IU) TABLET PO SCH (07:17)
[2021-08-19] MEDS: ASCORBIC ACID 500 MG TAB PO SCH (07:17)
[2021-08-19] MEDS: ASPIRIN 81 MG PO SCH (07:29)
[2021-08-19] MEDS: ALBUTEROL HFA INHALER INHALATION SCH ×4 (09:04→21:40)
[2021-08-19 11:43] LABS: ALT 72 U/L (4-49); AST 107 U/L (17-59); African American GFR (CKD) >90 (>60 ml/min/1.73 sqM); Albumin 3.3 g/dL (3.5-5.0); Albumin/Globulin Ratio 1.2; Alkaline Phosphatase 45 U/L (38-126); Anion Gap 8 mmol/L; Blood Urea Nitrogen 20 mg/dL (9-20); Calcium 8.6 mg/dL (8.4-10.2); Carbon Dioxide 30 mmol/L (22-30); Chloride 104 mmol/L (98-107); Globulin 2.8 g/dL; Glucose 180 mg/dL (74-99); LDH 1828 U/L (313-618); Non-African American GFR(CKD) >90 (>60 ml/min/1.73 sqM); Potassium 5.4 mmol/L (3.5-5.1); Sodium 142 mmol/L (137-145); Total Bilirubin 0.5 mg/dL (0.2-1.3); Total Protein 6.1 g/dL (6.3-8.2)
[2021-08-19 12:02] LABS: C Reactive Protein 17.6 mg/dL (<1.0)
--- NOTE | 2021-08-19 14:52 | P.PN ---
Subjective Progress Note Date: 08/19/21 HISTORY OF PRESENT ILLNESS 61-year-old male one of Dr. Hooper patient with past medical history of asthma, DVT, hypertension hyperlipidemia and kidney stone who apparently developed to being sick for over a week and ended up having fever chills and body ache went to [facility] and was tested for COVID-19 on Tuesday came back positive he contacted his primary care was supposed to go for monoclonal anti- body which was delay and was not called until today. Patient today become extremely sick developed to have worsening fever or chills abdominal pain with nausea without vomiting worsening shortness of breath with cough productive phlegm and finally become extremely hypoxic with minimal exertion. Ended up coming to the emergency department at [facility] where was seen and evaluated his oxygen level was in the mid 80. Patient was started on oxygen, updraft ayesha tment,Decadron along with multivitamins. Patient will be admitted to the hospital will be seen pulmonary watch his marker watch for any worsening symptoms with his high risk of clotting and coagulopathy patient be started on Lovenox as well. 08/18: Patient is seen today in the emergency center waiting for bed on the [facility] floor. Pulse ox is 97% on 2 L nasal cannula. He has been afebrile, heart rate 80, blood pressure 118/78. Patient has been seen by pulmonary medicine and is outside the window for Remdesivir and does not meet criteria for Baricitinib. Patient is on Ventolin inhaler, vitamin supplements, dexamethasone 6 mg IV daily, Lovenox 40 mg subcu daily. 08/19: [facility] floor. He is on 3 L nasal cannula with pulse ox of 94%. His been afebrile, heart rate 87, blood pressure 135/85. She is currently on Ventolin inhaler, vitamin supplements, Lovenox, Decadron 6 mg IV push daily. He is followed by pulmonary medicine. Repeat blood work reveals potassium of 5.4, creatinine 0.85. AST 107, ALT 72, alkaline phosphatase 45. LDH 1828, C-reactive protein 17.6. REVIEW OF SYSTEMS Constitutional: no fever and chills with night sweats-improved, no weight change, generalized weakness fatigue and tiredness. EENT: No headache. No blurred vision or double vision, no loss of vision. No loss of Hearing, no ringing in the ears, no dizziness. No nasal drainage or congestion. No epistaxis. No sore throat. Lungs: positive shortness of breath cough mild wheezes and productive sputum. Cardiovascular: No chest pain, no lower extremity edema. No palpitations. No paroxysmal nocturnal dyspnea. No orthopnea. No lightheadedness or dizziness. No syncopal episodes. Abdominal: positive abdominal pain. No nausea, vomiting. No diarrhea. No constipation. No bloody or tarry stools.. No loss of appetite. Genitourinary: No dysuria, increased frequency, urgency. No urinary retention. Musculoskeletal: No myalgias. No muscle weakness, no gait dysfunction, no frequent falls. No back pain. No neck pain. Integumentary: No wounds, no lesions. No rash or pruritus. No unusual bruising. No change in hair or nails. Neurologic: No aphasia. No facial droop. No change in mentation. No head injury. No headache. No paralysis. No paresthesia. Psychiatric: No depression. No anxiety. No mood swings. Endocrine: No abnormal blood sugars. No weight change. No excessive sweating or thirst. No cold intolerance. PHYSICAL EXAMINATION Gen: This is well-developed 61-year-old male does not look in any respiratory distress while he is resting in bed with still have oxygen on 2 L to keep his pulse ox above 90 percentile. HEENT: Head is atraumatic, normocephalic. Pupils equal, round. Sclerae is anic teric. NECK: Supple. No JVD. No lymphadenopathy. No thyromegaly. LUNGS: decrease + bilaterally with fine rhonchi mild crackles in the bases specially the right side with mild expiratory wheezes. HEART: Regular rate and rhythm. No murmur. ABDOMEN: Soft. Bowel sounds are present. No masses. No tenderness. EXTREMITIES: No pedal edema. No calf tenderness. NEUROLOGICAL: Patient is awake, alert and oriented x3. Cranial nerves 2 through 12 are grossly intact. ASSESSMENT AND PLAN 1. Sepsis secondary to COVID-19 pneumonitis: Patient be admitted to the hosp ital, continue Ventolin inhaler, vitamin supplements, dexamethasone 6 mg IV daily, Lovenox 40 mg subcu daily. Pulmonary consult appreciated. 2 severe hypoxia: Most likely from COVID-19, will watch for any secondary infection as well continue O2 to keep his pulse ox 90 percentile and still use updraft treatment. 3 history of asthma: Has been on albuterol inhaler along with dexamethasone. 4 hypertension: Has been on losartan 50 mg a day we'll resume medication. 6 DVT venous thrombosis patient most likely has coagulopathy was start on Lovenox 40 mg daily. 7 GI prophylaxis: Patient be on Pepcid 20 mg a day along with Zofran on as needed basis. 8 CODE STATUS: Full code. 9. COVID-19 testing was positive DISCHARGE PLAN Possibly home on Impression and plan of care have been directed as dictated by the signing physician. Pema Villagomez nurse practitioner acting as scribe for signing physician. Objective - Vital Signs Vital signs: Vital Signs Temp 98.2 F 08/19/21 06:00 Pulse 87 08/19/21 06:00 Resp 22 08/19/21 06:00 BP 135/85 08/19/21 06:00 Pulse Ox 94 L 08/19/21 06:00 Intake & Output 08/18/21 08/19/21 08/19/21 18:59 06:59 18:59 Weight 97.522 kg Other: # Voids 2 - Labs CBC & Chem 7: 08/17/21 14:36 08/19/21 10:34 Labs: Abnormal Lab Results - Last 24 Hours (Table) 08/18/21 Range/Units Unknown Coronavirus (PCR) Detected A (Not Detectd)
--- NOTE | 2021-08-19 15:30 | P.PN ---
Subjective Progress Note Date: 08/19/21 Principal diagnosis: Dyspnea, cough This a very pleasant 61-year-old male patient with a history of hypertension, nephrolithiasis requiring stent placement to the right ureter who follows with Dr. Hooper as his primary care provider. He presented here to the emergency room yesterday with complaints of increasing shortness breath, cough congestion fever since 08/10/2021. He tested positive on 08/11/2021 with COVID-19. He is not vaccinated. He is currently seen in the emergency department. Currently resting fairly comfortably in bed. He is on 2 L nasal cannula to maintain O2 saturation is a low 90s. Chest x-ray does reveal evidence of bilateral multifocal opacities CT angiogram was suboptimal but no large central or definite lobar branch pulmonary emboli. Again bilateral patchy groundglass opacities consistent with COVID-19 pneumonia. Right greater than left. White count 10.0. Hemoglobin 15.7. Platelets 135. Lymphocytes 0.6. D-dimer 0.69. Sodium 133. Potassium 4.1. Creatinine 1.1. AST 129. ALT 59. LDH 1545. C- reactive protein 23.9. Pro-calcitonin 0.52. He's been initiated on Decadron, Lovenox, vitamin supplements. Outside the window for Remdesivir. Not meeting criteria for Baricitinib. On 08-19-2021 patient seen in follow-up on medical surgical floor. He is awake and alert, he sitting up in the recliner, in no acute distress, he states his breathing and coughing are significantly improved, he is currently on 3 L of oxygen pulse ox is 90-94%, lung sounds are positive for diffuse crackles throughout, cough is nonproductive, no complete chest discomfort. His been afebrile overnight, vital signs have been stable, tolerating oral intake, no nausea vomiting diarrhea, currently continues on Decadron 6 blood gram daily, he is on Lovenox 40 mg daily, COVID-19 multivitamins, today's labs have been reviewed, sodium is improved and is up to 142, potassium is 5.4, chloride is 104, B1 is 20, creatinine 0.85, AST is 107, slightly improved, and ALT is 72, slightly worsened, alkaline phosphatase is 45, within normal limits, his LDH has slightly increased, and is up to 1828, CRP is improved and is down to 17.6. His pro-calcitonin level was 0.52, borderline. Objective - Vital Signs Vital signs: Vital Signs Temp 99.3 F 08/19/21 10:00 Pulse 107 H 08/19/21 10:00 Resp 15 08/19/21 10:00 BP 135/78 08/19/21 10:00 Pulse Ox 90 L 08/19/21 10:00 Intake & Output 08/18/21 08/19/21 08/19/21 18:59 06:59 18:59 Intake Total 600 Balance 600 Weight 97.522 kg Intake: Intake, IV Titration 600 Amount Sodium Chloride 0.9% 1, 600 000 ml @ 75 mls/hr IV . [id number] [facility] Rx#:[id number] Other: # Voids 2 - Exam GENERAL EXAM: Alert, very pleasant, 61-year-old white male on 3 L of oxygen pulse ox is 90-94% comfortable in no apparent distress. HEAD: Normocephalic/atraumatic. EYES: Normal reaction of pupils, equal size. Conjunctiva pink, sclera white. NOSE: Clear with pink turbinates. THROAT: No erythema or exudates. NECK: No masses, no JVD, no thyroid enlargement, no adenopathy. CHEST: No chest wall deformity. Symmetrical expansion. LUNGS: Equal air entry with bilateral crackles CVS: Regular rate and rhythm, normal S1 and S2, no gallops, no murmurs, no rubs ABDOMEN: Soft, nontender. No hepatosplenomegaly, normal bowel sounds, no guarding or rigidity. EXTREMITIES: No clubbing, no edema, no cyanosis, 2+ pulses and upper and lower extremities. MUSCULOSKELETAL: Muscle strength and tone normal. SPINE: No scoliosis or deformity SKIN: No rashes CENTRAL NERVOUS SYSTEM: Alert and oriented -3. No focal deficits, tone is normal in all 4 extremities. PSYCHIATRIC: Alert and oriented -3. Appropriate affect. Intact judgment and insight. - Labs CBC & Chem 7: 08/17/21 14:36 08/19/21 10:34 Labs: Abnormal Lab Results - Last 24 Hours (Table) 08/18/21 08/19/21 Range/Units Unknown 10:34 Potassium 5.4 H (3.5-5.1) mmol/L Glucose 180 H (74-99) mg/dL AST 107 H (17-59) U/L ALT 72 H (4-49) U/L Lactate Dehydrogenase 1828 H (313-618) U/L C-Reactive Protein 17.6 H (<1.0) mg/dL Total Protein 6.1 L (6.3-8.2) g/dL Albumin 3.3 L (3.5-5.0) g/dL Coronavirus (PCR) Detected A (Not Detectd) Assessment and Plan Plan: Assessment: #1. Acute hypoxic respiratory failure secondary to acute COVID-19 pneumonia, onset of symptoms of 08/10/2021, patient tested positive on 08/11/2021, patient was outside the window for Remdesivir, currently remains on minimal supplemental oxygen at 3 L, feels improved. Not vaccinated #2. Elevated inflammatory markers related to the above #3. Mild transaminitis secondary to the above #4. Hypertension #5. History of nephrolithiasis with previous stent placement in the right ureter #6. History of chronic bronchial asthma, unspecified #7. Previous history of DVT in the left leg #8. Lifetime nonsmoker Plan: Continue Decadron Continue Lovenox Patient feels his breathing is improved, his coughing is improved Continue to follow patient's inflammatory markers and d-dimer Continue COVID-19 vitamins I performed a history & physical examination of the patient and discussed their management with my nurse practitioner, Neyda Frances. I reviewed the nurse practitioner's note and agree with the documented findings and plan of care. Shayna ng sounds are positive for diffuse wheezes throughout the lung smith. The findings and the impression was discussed with the patient. I attest to the documentation by the nurse practitioner. Time with Patient: Less than 30
[2021-08-19] MEDS: LOSARTAN 50 MG TAB PO SCH (20:21)
[2021-08-19] MEDS: IBUPROFEN 400 MG TAB PO PRN (20:21)
[2021-08-19] MEDS: ZOLPIDEM 5 MG TAB PO PRN (22:14)
[2021-08-20] MEDS: ASCORBIC ACID 500 MG TAB PO SCH (07:44)
[2021-08-20] MEDS: ZINC SULFATE 220 MG CAP PO SCH (07:44)
[2021-08-20] MEDS: ASPIRIN 81 MG PO SCH (07:45)
[2021-08-20] MEDS: DEXAMETHASONE SOD PHOSPHATE 10 MG/ML 1 ML VIAL IVP SCH (07:45)
[2021-08-20] MEDS: ENOXAPARIN 40 MG/0.4 ML SYRINGE SQ SCH (07:45)
[2021-08-20] MEDS: CHOLECALCIFEROL 125 MCG (5000 IU) TABLET PO SCH (07:45)
[2021-08-20] MEDS: ALBUTEROL HFA INHALER INHALATION SCH ×4 (09:05→20:33)
[2021-08-20] MEDS ORDERED: bisacodyL 5 MG TABLET.DR PO PRN (10:45)
[2021-08-20] MEDS: SODIUM CHLORIDE 0.9% 1,000 ML IV SCH (10:49)
[2021-08-20] MEDS: DOCUSATE 100 MG CAP PO SCH ×2 (10:50→20:34)
[2021-08-20] MEDS: IBUPROFEN 400 MG TAB PO PRN (13:00)
[2021-08-20] MEDS: AMOXIC-POT CLAV 875-125MG 1 EACH TAB PO SCH ×2 (14:24→20:34)
[2021-08-20] MEDS: MAG HYDROX/AL HYDROX/SIMETH 30 ML CUP PO PRN ×2 (14:24→20:34)
[2021-08-20] MEDS: ONDANSETRON 4 MG/2 ML VIAL IVP PRN ×2 (15:28→22:27)
--- NOTE | 2021-08-20 16:01 | P.PN ---
Subjective Progress Note Date: 08/20/21 Principal diagnosis: Dyspnea, cough This a very pleasant 61-year-old male patient with a history of hypertension, nephrolithiasis requiring stent placement to the right ureter who follows with Dr. Hooper as his primary care provider. He presented here to the emergency room yesterday with complaints of increasing shortness breath, cough congestion fever since 08/10/2021. He tested positive on 08/11/2021 with COVID-19. He is not vaccinated. He is currently seen in the emergency department. Currently resting fairly comfortably in bed. He is on 2 L nasal cannula to maintain O2 saturation is a low 90s. Chest x-ray does reveal evidence of bilateral multifocal opacities CT angiogram was suboptimal but no large central or definite lobar branch pulmonary emboli. Again bilateral patchy groundglass opacities consistent with COVID-19 pneumonia. Right greater than left. White count 10.0. Hemoglobin 15.7. Platelets 135. Lymphocytes 0.6. D-dimer 0.69. Sodium 133. Potassium 4.1. Creatinine 1.1. AST 129. ALT 59. LDH 1545. C- reactive protein 23.9. Pro-calcitonin 0.52. He's been initiated on Decadron, Lovenox, vitamin supplements. Outside the window for Remdesivir. Not meeting criteria for Baricitinib. On 08-19-2021 patient seen in follow-up on medical surgical floor. He is awake and alert, he sitting up in the recliner, in no acute distress, he states his breathing and coughing are significantly improved, he is currently on 3 L of oxygen pulse ox is 90-94%, lung sounds are positive for diffuse crackles throughout, cough is nonproductive, no complete chest discomfort. His been afebrile overnight, vital signs have been stable, tolerating oral intake, no nausea vomiting diarrhea, currently continues on Decadron 6 blood gram daily, he is on Lovenox 40 mg daily, COVID-19 multivitamins, today's labs have been reviewed, sodium is improved and is up to 142, potassium is 5.4, chloride is 104, B1 is 20, creatinine 0.85, AST is 107, slightly improved, and ALT is 72, slightly worsened, alkaline phosphatase is 45, within normal limits, his LDH has slightly increased, and is up to 1828, CRP is improved and is down to 17.6. His pro-calcitonin level was 0.52, borderline. On 08/20/2021 patient seen in follow-up on medical surgical floor, he states his cough is improved, although still persist, in he is now bringing up some brownish colored phlegm. He remains on 3 L of oxygen his pulse ox is 89-92%. Lung sounds are diminished at the bases, with bibasilar crackles, his pro- calcitonin on admission was borderline elevated, although repeat pro-calcitonin today came back improved at 0.27 down from 0.52 on admission, his inflammatory markers were reviewed, his LDH has increased and is up to 2105, and CRP is 15, d-dimer is negative at 0.54, patient is afebrile, blood pressure stable, he is asking if he is currently given any antibiotics. He remains on dexamethasone 6 mg daily, remains on multivitamins, and prophylactic dose Lovenox. Objective - Vital Signs Vital signs: Vital Signs Temp 98.4 F 08/20/21 14:35 Pulse 98 08/20/21 14:35 Resp 18 08/20/21 14:35 BP 144/88 08/20/21 14:35 Pulse Ox 94 L 08/20/21 14:35 Intake & Output 08/19/21 08/20/21 08/20/21 18:59 06:59 18:59 Intake Total 600 600 Balance 600 600 Intake: Intake, IV Titration 600 600 Amount Sodium Chloride 0.9% 1, 600 600 000 ml @ 75 mls/hr IV . [id number] [facility] Rx#:[id number] Other: # Voids 3 - Exam GENERAL EXAM: Alert, very pleasant, 61-year-old white male on 4 L of oxygen pulse ox is 90-94% comfortable in no apparent distress. HEAD: Normocephalic/atraumatic. EYES: Normal reaction of pupils, equal size. Conjunctiva pink, sclera white. NOSE: Clear with pink turbinates. THROAT: No erythema or exudates. NECK: No masses, no JVD, no thyroid enlargement, no adenopathy. CHEST: No chest wall deformity. Symmetrical expansion. LUNGS: Equal air entry with bilateral crackles CVS: Regular rate and rhythm, normal S1 and S2, no gallops, no murmurs, no rubs ABDOMEN: Soft, nontender. No hepatosplenomegaly, normal bowel sounds, no guarding or rigidity. EXTREMITIES: No clubbing, no edema, no cyanosis, 2+ pulses and upper and lower extremities. MUSCULOSKELETAL: Muscle strength and tone normal. SPINE: No scoliosis or deformity SKIN: No rashes CENTRAL NERVOUS SYSTEM: Alert and oriented -3. No focal deficits, tone is normal in all 4 extremities. PSYCHIATRIC: Alert and oriented -3. Appropriate affect. Intact judgment and insight. - Labs CBC & Chem 7: 08/17/21 14:36 08/19/21 10:34 Labs: Abnormal Lab Results - Last 24 Hours (Table) 08/19/21 08/20/21 Range/Units 10:34 07:26 Lactate Dehydrogenase 2105 H (313-618) U/L C-Reactive Protein 15.0 H (<1.0) mg/dL Procalcitonin 0.27 H (0.02-0.09) ng/mL Assessment and Plan Plan: Assessment: #1. Acute hypoxic respiratory failure secondary to acute COVID-19 pneumonia, onset of symptoms of 08/10/2021, patient tested positive on 08/11/2021, patient was outside the window for Remdesivir, currently remains on minimal supplemental oxygen at 3 L, feels improved. Not vaccinated #2. Elevated inflammatory markers related to the above, with a trend up in the LDH levels #3. Mild transaminitis secondary to the above, improved #4. Hypertension #5. History of nephrolithiasis with previous stent placement in the right ureter #6. History of chronic bronchial asthma, unspecified #7. Previous history of DVT in the left leg #8. Lifetime nonsmoker Plan: Continue Decadron Continue Lovenox 40 mg daily Still having cough, producing brown colored phlegm Send a sputum culture We will place the patient on Augmentin His pro-Level Is Borderline Elevated When He Came in, improved on today's labs increase activity as tolerated Follow-up chest x-ray tomorrow Follow d-dimer and inflammatory markers If continues to improve may be considered for discharge home tomorrow home oxygen I performed a history & physical examination of the patient and discussed their management with my nurse practitioner, Neyda Frances. I reviewed the nurse practitioner's note and agree with the documented findings and plan of care. Lung sounds are positive for diffuse wheezes throughout the lung smith. The findings and the impression was discussed with the patient. I attest to the documentation by the nurse practitioner. Time with Patient: Less than 30
[2021-08-20] MEDS: LOSARTAN 50 MG TAB PO SCH (20:34)
[2021-08-20] MEDS: ZOLPIDEM 5 MG TAB PO PRN (22:27)
[2021-08-21] MEDS: SODIUM CHLORIDE 0.9% 1,000 ML IV SCH (02:06)
[2021-08-21] MEDS: IBUPROFEN 400 MG TAB PO PRN (04:31)
[2021-08-21] MEDS: ALBUTEROL HFA INHALER INHALATION SCH ×4 (08:08→19:29)
--- NOTE | 2021-08-21 08:15 | XR ---
EXAMINATION TYPE: XR chest 1V portable DATE OF EXAM: 08/21/2021 Comparison: 08/17/2021 Clinical History: 61-year-old male covid Findings: Heart borderline enlarged. Continued patchy and confluent opacities and diffuse interstitial density, right greater than left. No significant change. Impression: Similar borderline cardiomegaly and right greater than left COVID infiltrates.
[2021-08-21] MEDS: CHOLECALCIFEROL 125 MCG (5000 IU) TABLET PO SCH (08:33)
[2021-08-21] MEDS: ASPIRIN 81 MG PO SCH (08:33)
[2021-08-21] MEDS: DEXAMETHASONE SOD PHOSPHATE 10 MG/ML 1 ML VIAL IVP SCH (08:33)
[2021-08-21] MEDS: ASCORBIC ACID 500 MG TAB PO SCH (08:33)
[2021-08-21] MEDS: AMOXIC-POT CLAV 875-125MG 1 EACH TAB PO SCH ×2 (08:33→20:37)
[2021-08-21] MEDS: ZINC SULFATE 220 MG CAP PO SCH (08:33)
[2021-08-21] MEDS: ENOXAPARIN 40 MG/0.4 ML SYRINGE SQ SCH (08:34)
[2021-08-21] MEDS: DOCUSATE 100 MG CAP PO SCH ×2 (08:34→20:37)
[2021-08-21 08:37] LABS: C Reactive Protein 6.7 mg/dL (<1.0)
[2021-08-21] MEDS: MAG HYDROX/AL HYDROX/SIMETH 30 ML CUP PO PRN (11:00)
--- NOTE | 2021-08-21 14:00 | US ---
EXAMINATION TYPE: US venous doppler duplex LE DATE OF EXAM: 08/21/2021 12:36 PM COMPARISON: NONE CLINICAL HISTORY: elevated d-dimer Exam done portable on covid patient SIDE PERFORMED: Bilateral TECHNIQUE: The lower extremity deep venous system is examined utilizing real time linear array sonog lauren with graded compression, doppler sonography and color-flow sonography. VESSELS IMAGED: Common Femoral Vein Deep Femoral Vein Greater Saphenous Vein * Femoral Vein Popliteal Vein Small Saphenous Vein * Proximal Calf Veins (* superficial vessels) Right Leg: Appears negative for DVT Left Leg: Appears negative for DVT IMPRESSION: Grayscale, color doppler, spectral doppler imaging performed of the deep veins of the lo wer extremities. There is normal flow, compressibility, vascular waveforms. No evidence of bilateral lower extremity DVT.
--- NOTE | 2021-08-21 15:24 | P.PN ---
Subjective Progress Note Date: 08/20/21 HISTORY OF PRESENT ILLNESS 61-year-old male one of Dr. Hooper patient with past medical history of asthma, DVT, hypertension hyperlipidemia and kidney stone who apparently developed to being sick for over a week and ended up having fever chills and body ache went to [facility] and was tested for COVID-19 on Tuesday came back positive he contacted his primary care was supposed to go for monoclonal anti- body which was delay and was not called until today. Patient today become extremely sick developed to have worsening fever or chills abdominal pain with nausea without vomiting worsening shortness of breath with cough productive phlegm and finally become extremely hypoxic with minimal exertion. Ended up coming to the emergency department at [facility] where was seen and evaluated his oxygen level was in the mid 80. Patient was started on oxygen, updraft ayesha tment,Decadron along with multivitamins. Patient will be admitted to the hospital will be seen pulmonary watch his marker watch for any worsening symptoms with his high risk of clotting and coagulopathy patient be started on Lovenox as well. 08/18: Patient is seen today in the emergency center [facility] Pulse ox is 97% on 2 L nasal cannula. He has been afebrile, heart rate 80, blood pressure 118/78. Patient has been seen by pulmonary medicine and is outside the window for Remdesivir and does not meet criteria for Baricitinib. Patient is on Ventolin inhaler, vitamin supplements, dexamethasone 6 mg IV daily, Lovenox 40 mg subcu daily. 08/19: [facility]. He is on 3 L nasal cannula with pulse ox of 94%. His been afebrile, heart rate 87, blood pressure 135/85. She is currently on Ventolin inhaler, vitamin supplements, Lovenox, Decadron 6 mg IV push daily. He is followed by pulmonary medicine. Repeat blood work reveals potassium of 5.4, creatinine 0.85. AST 107, ALT 72, alkaline phosphatase 45. LDH 1828, C-reactive protein 17.6. 08/20: Patient states that he slept well last night he states he is still having muscle aches and is complaining of constipation. Oxygen saturation is 89-94% on 3-4 L. He has been afebrile, heart rate 107, blood pressure 157/89. LDH 2105. C-reactive protein 15. We had anticipated discharge home today but due to patient's increased oxygen need, patient's discharge will be held. Possible discharge tomorrow. REVIEW OF SYSTEMS Constitutional: no fever and chills with night sweats-improved, no weight change, generalized weakness fatigue and tiredness. EENT: No headache. No blurred vision or double vision, no loss of vision. No loss of Hearing, no ringing in the ears, no dizziness. No nasal drainage or congestion. No epistaxis. No sore throat. Lungs: positive shortness of breath cough mild wheezes and productive sputum. Cardiovascular: No chest pain, no lower extremity edema. No palpitations. No paroxysmal nocturnal dyspnea. No orthopnea. No lightheadedness or dizziness. No syncopal episodes. Abdominal: positive abdominal pain. No nausea, vomiting. No diarrhea. No constipation. No bloody or tarry stools.. No loss of appetite. Genitourinary: No dysuria, increased frequency, urgency. No urinary retention. Musculoskeletal: No myalgias. No muscle weakness, no gait dysfunction, no frequent falls. No back pain. No neck pain. Integumentary: No wounds, no lesions. No rash or pruritus. No unusual bruising. No change in hair or nails. Neurologic: No aphasia. No facial droop. No change in mentation. No head injury. No headache. No paralysis. No paresthesia. Psychiatric: No depression. No anxiety. No mood swings. Endocrine: No abnormal blood sugars. No weight change. No excessive sweating or thirst. No cold intolerance. PHYSICAL EXAMINATION Gen: This is well-developed 61-year-old male does not look in any respiratory distress while he is resting in bed with still have oxygen on 2 L to keep his pulse ox above 90 percentile. HEENT: Head is atraumatic, normocephalic. Pupils equal, round. Sclerae is anicteric. NECK: Supple. No JVD. No lymphadenopathy. No thyromegaly. LUNGS: decrease + bilaterally with fine rhonchi mild crackles in the bases specially the right side with mild expiratory wheezes. HEART: Regular rate and rhythm. No murmur. ABDOMEN: Soft. Bowel sounds are present. No masses. No tenderness. EXTREMITIES: No pedal edema. No calf tenderness. NEUROLOGICAL: Patient is awake, alert and oriented x3. Cranial nerves 2 through 12 are grossly intact. ASSESSMENT AND PLAN 1. Sepsis secondary to COVID-19 pneumonitis: Patient be admitted to the hospital, continue Ventolin inhaler, vitamin supplements, dexamethasone 6 mg IV daily, Lovenox 40 mg subcu daily. Pulmonary consult appreciated. Continue oxygen therapy at 5 L nasal cannula. 2 severe hypoxia: Most likely from COVID-19, will watch for any secondary infection as well continue O2 to keep his pulse ox 90 percentile and still use updraft treatment. 3 history of asthma: Has been on albuterol inhaler along with dexamethasone. 4 hypertension: Has been on losartan 50 mg a day we'll resume medication. 6 DVT venous thrombosis patient most likely has coagulopathy was start on Lovenox 40 mg daily. 7 GI prophylaxis: Patient be on Pepcid 20 mg a day along with Zofran on as needed basis. 8 CODE STATUS: Full code. 9. COVID-19 testing was positive DISCHARGE PLAN Possibly home on Tuesday Impression and plan of care have been directed as dictated by the signing physician. Pema Villagomez nurse practitioner acting as scribe for signing physician. Objective - Vital Signs Vital signs: Vital Signs Temp 98.5 F 08/20/21 10:00 Pulse 107 H 08/20/21 10:00 Resp 18 08/20/21 10:00 BP 157/89 08/20/21 10:00 Pulse Ox 89 L 08/20/21 10:00 Intake & Output 08/19/21 08/20/21 08/20/21 18:59 06:59 18:59 Intake Total 600 Balance 600 Intake: Intake, IV Titration 600 Amount Sodium Chloride 0.9% 1, 600 000 ml @ 75 mls/hr IV . [id number] [facility] Rx#:[id number] Other: # Voids 3 - Labs CBC & Chem 7: 08/17/21 14:36 08/19/21 10:34 Labs: Abnormal Lab Results - Last 24 Hours (Table) 08/19/21 08/19/21 08/20/21 Range/Units 10:34 10:34 07:26 Potassium 5.4 H (3.5-5.1) mmol/L Glucose 180 H (74-99) mg/dL AST 107 H (17-59) U/L ALT 72 H (4-49) U/L Lactate Dehydrogenase 1828 H 2105 H (313-618) U/L C-Reactive Protein 17.6 H 15.0 H (<1.0) mg/dL Total Protein 6.1 L (6.3-8.2) g/dL Albumin 3.3 L (3.5-5.0) g/dL Procalcitonin 0.27 H (0.02-0.09) ng/mL
--- NOTE | 2021-08-21 15:26 | P.PN ---
Subjective Progress Note Date: 08/21/21 Principal diagnosis: Dyspnea, cough This a very pleasant 61-year-old male patient with a history of hypertension, nephrolithiasis requiring stent placement to the right ureter who follows with Dr. Hooper as his primary care provider. He presented here to the emergency room yesterday with complaints of increasing shortness breath, cough congestion fever since 08/10/2021. He tested positive on 08/11/2021 with COVID-19. He is not vaccinated. He is currently seen in the emergency department. Currently resting fairly comfortably in bed. He is on 2 L nasal cannula to maintain O2 saturation is a low 90s. Chest x-ray does reveal evidence of bilateral multifocal opacities CT angiogram was suboptimal but no large central or definite lobar branch pulmonary emboli. Again bilateral patchy groundglass opacities consistent with COVID-19 pneumonia. Right greater than left. White count 10.0. Hemoglobin 15.7. Platelets 135. Lymphocytes 0.6. D-dimer 0.69. Sodium 133. Potassium 4.1. Creatinine 1.1. AST 129. ALT 59. LDH 1545. C- reactive protein 23.9. Pro-calcitonin 0.52. He's been initiated on Decadron, Lovenox, vitamin supplements. Outside the window for Remdesivir. Not meeting criteria for Baricitinib. On 08-19-2021 patient seen in follow-up on medical surgical floor. He is awake and alert, he sitting up in the recliner, in no acute distress, he states his breathing and coughing are significantly improved, he is currently on 3 L of oxygen pulse ox is 90-94%, lung sounds are positive for diffuse crackles throughout, cough is nonproductive, no complete chest discomfort. His been afebrile overnight, vital signs have been stable, tolerating oral intake, no nausea vomiting diarrhea, currently continues on Decadron 6 blood gram daily, he is on Lovenox 40 mg daily, COVID-19 multivitamins, today's labs have been reviewed, sodium is improved and is up to 142, potassium is 5.4, chloride is 104, B1 is 20, creatinine 0.85, AST is 107, slightly improved, and ALT is 72, slightly worsened, alkaline phosphatase is 45, within normal limits, his LDH has slightly increased, and is up to 1828, CRP is improved and is down to 17.6. His pro-calcitonin level was 0.52, borderline. On 08/20/2021 patient seen in follow-up on medical surgical floor, he states his cough is improved, although still persist, in he is now bringing up some brownish colored phlegm. He remains on 3 L of oxygen his pulse ox is 89-92%. Lung sounds are diminished at the bases, with bibasilar crackles, his pro- calcitonin on admission was borderline elevated, although repeat pro-calcitonin today came back improved at 0.27 down from 0.52 on admission, his inflammatory markers were reviewed, his LDH has increased and is up to 2105, and CRP is 15, d-dimer is negative at 0.54, patient is afebrile, blood pressure stable, he is asking if he is currently given any antibiotics. He remains on dexamethasone 6 mg daily, remains on multivitamins, and prophylactic dose Lovenox. On 08/21/2021 patient seen in follow-up on medical surgical floor, his oxygen requirements have slightly increased, he is currently on 5 L of oxygen compared to 3 L and yesterday's exam, his pulse ox is 89-91%, he is dyspneic with exertion but appears to be no acute distress, lung sounds reveal diffuse coarse crackles bilaterally, he still coughing up some brownish colored phlegm, yesterday we started him on oral Augmentin for empiric antibiotic coverage, he continues on Decadron 6 mg daily, he is on prophylactic dose Lovenox and inhaled bronchodilators. He's had no acute events overnight, no complaints of hemoptysis, no combines of chest discomfort. His chest x-ray today shows cardiomegaly and right greater than left COVID-19 infiltrates. Today's labs have been reviewed, his inflammatory markers have trended up and LDH is up to 2163, and CRP 6.7 improved since admission, pro-calcitonin level was 0.27, his d-dimer has increased to 16.1, his CT angios of the chest was suboptimal contra st bolus and breathing motion artifact however there was no evidence of a large central or definite lobar branch pulmonary embolism. Objective - Vital Signs Vital signs: Vital Signs Temp 98.6 F 08/21/21 14:37 Pulse 102 H 08/21/21 14:37 Resp 20 08/21/21 14:37 BP 168/85 08/21/21 14:37 Pulse Ox 92 L 08/21/21 15:04 Intake & Output 08/20/21 08/21/21 08/21/21 18:59 06:59 18:59 Intake Total 600 Balance 600 Intake: Intake, IV Titration 600 Amount Sodium Chloride 0.9% 1, 600 000 ml @ 75 mls/hr IV . [id number] [facility] Rx#:[id number] Other: # Voids 1 - Exam GENERAL EXAM: Alert, very pleasant, 61-year-old white male on 6 L of oxygen pulse ox is 89% comfortable in no apparent distress. HEAD: Normocephalic/atraumatic. EYES: Normal reaction of pupils, equal size. Conjunctiva pink, sclera white. NOSE: Clear with pink turbinates. THROAT: No erythema or exudates. NECK: No masses, no JVD, no thyroid enlargement, no adenopathy. CHEST: No chest wall deformity. Symmetrical expansion. LUNGS: Equal air entry with bilateral crackles CVS: Regular rate and rhythm, normal S1 and S2, no gallops, no murmurs, no rubs ABDOMEN: Soft, nontender. No hepatosplenomegaly, normal bowel sounds, no guarding or rigidity. EXTREMITIES: No clubbing, no edema, no cyanosis, 2+ pulses and upper and lower extremities. MUSCULOSKELETAL: Muscle strength and tone normal. SPINE: No scoliosis or deformity SKIN: No rashes CENTRAL NERVOUS SYSTEM: Alert and oriented -3. No focal deficits, tone is normal in all 4 extremities. PSYCHIATRIC: Alert and oriented -3. Appropriate affect. Intact judgment and insight. - Labs CBC & Chem 7: 08/17/21 14:36 08/19/21 10:34 Labs: Abnormal Lab Results - Last 24 Hours (Table) 08/21/21 08/21/21 Range/Units 07:58 07:58 D-Dimer 16.11 H (<0.60) mg/L FEU Lactate Dehydrogenase 2163 H (313-618) U/L C-Reactive Protein 6.7 H (<1.0) mg/dL Assessment and Plan Plan: Assessment: #1. Acute hypoxic respiratory failure secondary to acute COVID-19 pneumonia, onset of symptoms of 08/10/2021, patient tested positive on 08/11/2021, patient was outside the window for Remdesivir, not vaccinated, and today on 08/21/2021 patient's oxygenation seems to have worsened, and patient is currently on 6 L of oxygen #2. Elevated inflammatory markers related to the above, with a trend up in the LDH levels #3. Mild transaminitis secondary to the above, improved #4. Increased d-dimer of 16.1, CT angios of the chest was negative for definite central or lobar branch pulmonary embolism, and no evidence of DVT on lower extremity Dopplers #5. Hypertension #6. History of nephrolithiasis with previous stent placement in the right ureter #7. History of chronic bronchial asthma, unspecified #8. Previous history of DVT in the left leg #9. Lifetime nonsmoker Plan: Oxygenation seems to have worsened today Does not appear to be in any acute distress, however requiring more oxygen which is currently at 6 L Continue Decadron Continue Lovenox 40 mg daily Still having cough, producing brown colored phlegm Send a sputum culture Continue Augentin Follow-up chest x-ray tomorrow Follow d-dimer and inflammatory markers If continues to improve may be considered for discharge home tomorrow home oxygen I performed a history & physical examination of the patient and discussed their management with my nurse practitioner, Neyda Frances. I reviewed the nurse practitioner's note and agree with the documented findings and plan of care. Lung sounds are positive for diffuse wheezes throughout the lung smith. The findings and the impression was discussed with the patient. I attest to the documentation by the nurse practitioner. Time with Patient: Less than 30
--- NOTE | 2021-08-21 15:29 | P.PN ---
Subjective Progress Note Date: 08/21/21 HISTORY OF PRESENT ILLNESS 61-year-old male one of Dr. oHoper patient with past medical history of asthma, DVT, hypertension hyperlipidemia and kidney stone who apparently developed to being sick for over a week and ended up having fever chills and body ache went to [facility] and was tested for COVID-19 on Tuesday came back positive he contacted his primary care was supposed to go for monoclonal anti- body which was delay and was not called until today. Patient today become extremely sick developed to have worsening fever or chills abdominal pain with nausea without vomiting worsening shortness of breath with cough productive phlegm and finally become extremely hypoxic with minimal exertion. Ended up coming to the emergency department at [facility] where was seen and evaluated his oxygen level was in the mid 80. Patient was started on oxygen, updraft ayesha tment,Decadron along with multivitamins. Patient will be admitted to the hospital will be seen pulmonary watch his marker watch for any worsening symptoms with his high risk of clotting and coagulopathy patient be started on Lovenox as well. 08/18: Patient is seen today in the emergency center [facility]. Pulse ox is 97% on 2 L nasal cannula. He has been afebrile, heart rate 80, blood pressure 118/78. Patient has been seen by pulmonary medicine and is outside the window for Remdesivir and does not meet criteria for Baricitinib. Patient is on Ventolin inhaler, vitamin supplements, dexamethasone 6 mg IV daily, Lovenox 40 mg subcu daily. 08/19: Patient is [facility]. He is on 3 L nasal cannula with pulse ox of 94%. His been afebrile, heart rate 87, blood pressure 135/85. She is currently on Ventolin inhaler, vitamin supplements, Lovenox, Decadron 6 mg IV push daily. He is followed by pulmonary medicine. Repeat blood work reveals potassium of 5.4, creatinine 0.85. AST 107, ALT 72, alkaline phosphatase 45. LDH 1828, C-reactive protein 17.6. 08/20: Patient states that he slept well last night he states he is still having muscle aches and is complaining of constipation. Oxygen saturation is 89-94% on 3-4 L. He has been afebrile, heart rate 107, blood pressure 157/89. LDH 2105. C-reactive protein 15. We had anticipated discharge home today but due to patient's increased oxygen need, patient's discharge will be held. Possible discharge tomorrow. 08/21: Patient is on oxygen now increased to 6 L pulse ox of 82%. We'll ask for humidification and extension. Patient states that he is using incentive spirometry. Repeat chest x-ray reveals similar borderline cardiomegaly and right greater than left Covid infiltrates. Repeat blood work reveals d-dimer 16.11. LDH 2163, C-reactive protein 6.7. Bilateral lower extremity ultrasound negative for DVT. Augmentin was added yesterday by pulmonary medicine. REVIEW OF SYSTEMS Constitutional: no fever and chills with night sweats-improved, no weight ch jd, generalized weakness fatigue and tiredness. EENT: No headache. No blurred vision or double vision, no loss of vision. No loss of Hearing, no ringing in the ears, no dizziness. No nasal drainage or congestion. Reports mild epistaxis. No sore throat. Lungs: positive shortness of breath cough mild wheezes and productive sputum. Reports dyspnea with exertion. Cardiovascular: No chest pain, no lower extremity edema. No palpitations. No paroxysmal nocturnal dyspnea. No orthopnea. No lightheadedness or dizziness. No syncopal episodes. Abdominal: positive abdominal pain. No nausea, vomiting. No diarrhea. No constipation. No bloody or tarry stools.. No loss of appetite. Genitourinary: No dysuria, increased frequency, urgency. No urinary retention. Musculoskeletal: No myalgias. No muscle weakness, no gait dysfunction, no frequent falls. No back pain. No neck pain. Integumentary: No wounds, no lesions. No rash or pruritus. No unusual bruising. No change in hair or nails. Neurologic: No aphasia. No facial droop. No change in mentation. No head injury. No headache. No paralysis. No paresthesia. Psychiatric: No depression. No anxiety. No mood swings. Endocrine: No abnormal blood sugars. No weight change. No excessive sweating or thirst. No cold intolerance. PHYSICAL EXAMINATION Gen: This is well-developed 61-year-old male does not look in any respiratory distress while he is resting in bed with still have oxygen on 2 L to keep his pulse ox above 90 percentile. HEENT: Head is atraumatic, normocephalic. Pupils equal, round. Sclerae is anicteric. NECK: Supple. No JVD. No lymphadenopathy. No thyromegaly. LUNGS: decrease + bilaterally with fine rhonchi mild crackles in the bases specially the right side with mild expiratory wheezes. HEART: Regular rate and rhythm. No murmur. ABDOMEN: Soft. Bowel sounds are present. No masses. No tenderness. EXTREMITIES: No pedal edema. No calf tenderness. NEUROLOGICAL: Patient is awake, alert and oriented x3. Cranial nerves 2 through 12 are grossly intact. ASSESSMENT AND PLAN 1. Sepsis secondary to COVID-19 pneumonitis: Patient be admitted to the hospital, continue Ventolin inhaler, vitamin supplements, dexamethasone 6 mg IV daily, Lovenox 40 mg subcu daily. Pulmonary consult appreciated. Continue oxygen therapy at 9 L nasal cannula. Augmentin added. 2 severe hypoxia: Most likely from COVID-19, will watch for any secondary infec tion as well continue O2 to keep his pulse ox 90 percentile and still use updraft treatment. 3 history of asthma: Has been on albuterol inhaler along with dexamethasone. 4 hypertension: Has been on losartan 50 mg a day we'll resume medication. 6 DVT venous thrombosis patient most likely has coagulopathy was start on Lovenox 40 mg daily. 7 GI prophylaxis: Patient be on Pepcid 20 mg a day along with Zofran on as needed basis. 8 CODE STATUS: Full code. 9. COVID-19 testing was positive DISCHARGE PLAN Home once stabilized Impression and plan of care have been directed as dictated by the signing physician. Pema Villagomez nurse practitioner acting as scribe for signing physician. Objective - Vital Signs Vital signs: Vital Signs Temp 98 F 08/21/21 08:56 Pulse 103 H 08/21/21 08:56 Resp 17 08/21/21 08:56 BP 157/89 08/21/21 08:56 Pulse Ox 89 L 08/21/21 08:56 Intake & Output 08/20/21 08/21/21 08/21/21 18:59 06:59 18:59 Intake Total 600 Balance 600 Intake: Intake, IV Titration 600 Amount Sodium Chloride 0.9% 1, 600 000 ml @ 75 mls/hr IV . [id number] [facility] Rx#:[id number] Other: # Voids 1 - Labs CBC & Chem 7: 08/17/21 14:36 08/19/21 10:34 Labs: Abnormal Lab Results - Last 24 Hours (Table) 08/21/21 08/21/21 Range/Units 07:58 07:58 D-Dimer 16.11 H (<0.60) mg/L FEU Lactate Dehydrogenase 2163 H (313-618) U/L C-Reactive Protein 6.7 H (<1.0) mg/dL
[2021-08-21] MEDS ORDERED: hydrALAZINE HCL 25 MG TAB PO PRN (17:21)
[2021-08-21] MEDS: ALPRAZolam 0.25 MG TAB PO PRN (17:47)
[2021-08-21] MEDS: LOSARTAN 50 MG TAB PO SCH (20:37)
[2021-08-22] MEDS: ALPRAZolam 0.25 MG TAB PO PRN ×4 (00:46→22:05)
[2021-08-22] MEDS: ACETAMINOPHEN TAB 500 MG TAB PO PRN (00:48)
[2021-08-22] MEDS: ALBUTEROL HFA INHALER INHALATION SCH ×4 (08:47→19:15)
[2021-08-22] MEDS: ENOXAPARIN 40 MG/0.4 ML SYRINGE SQ SCH (08:53)
[2021-08-22] MEDS: DEXAMETHASONE SOD PHOSPHATE 10 MG/ML 1 ML VIAL IVP SCH (08:53)
[2021-08-22] MEDS: ASCORBIC ACID 500 MG TAB PO SCH (08:54)
[2021-08-22] MEDS: CHOLECALCIFEROL 125 MCG (5000 IU) TABLET PO SCH (08:54)
[2021-08-22] MEDS: AMOXIC-POT CLAV 875-125MG 1 EACH TAB PO SCH ×2 (08:54→22:05)
[2021-08-22] MEDS: ASPIRIN 81 MG PO SCH (08:54)
[2021-08-22] MEDS: FAMOTIDINE 20 MG TAB PO SCH (08:54)
[2021-08-22] MEDS: ZINC SULFATE 220 MG CAP PO SCH (08:54)
[2021-08-22] MEDS: DOCUSATE 100 MG CAP PO SCH (08:55)
[2021-08-22] MEDS ORDERED: DOCUSATE 100 MG CAP PO PRN (09:45)
--- NOTE | 2021-08-22 10:37 | CT ---
EXAMINATION TYPE: CT chest wo con DATE OF EXAM: 08/22/2021 COMPARISON: CTA chest 5 days ago HISTORY: Shortness of breath. Covid pneumonia. CT DLP: 474.4 mGycm. Automated Exposure Control for Dose Reduction was Utilized. TECHNIQUE: CT scan of the thorax is performed without IV contrast. FINDINGS: LUNGS: Redemonstration of bilateral groundglass opacities and organizing consolidations greater in th e right lung with interval progression from CT study 5 days earlier. Trace right-sided pleural effusi on on current study. No pneumothorax seen bilaterally. MEDIASTINUM: Lack of IV contrast is noted to limit evaluation for mediastinal and especially hilar ad enopathy. There are persistent prominent scattered mediastinal lymph nodes and bilateral hilar lymph nodes presumed reactive. No new cardiomegaly or pericardial effusion is seen. Enlarged main pulmona ry artery suggests underlying pulmonary artery hypertension. OTHER: No additional significant abnormality is seen. IMPRESSION: Worsening right greater than left bilateral multifocal groundglass opacities and organizi ng consolidations consistent with covid-19 infection progression and/or developing ARDS.
--- NOTE | 2021-08-22 11:45 | P.PN ---
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 Patient today become extremely sick developed to have worsening fever or chills abdominal pain with nausea without vomiting worsening shortness of breath with cough productive phlegm and finally become extremely hypoxic with minimal exertion. Ended up coming to the emergency department at [facility] where was seen and evaluated his oxygen level was in the mid 80. Patient was started on oxygen, updraft treat ment,Decadron along with multivitamins. Patient will be admitted to the hospital will be seen pulmonary watch his marker watch for any worsening symptoms with his high risk of clotting and coagulopathy patient be started on Lovenox as well. 08/18: Patient is seen today in the emergency center [facility]. Pulse ox is 97% on 2 L nasal cannula. He has been afebrile, heart rate 80, blood pressure 118/78. Patient has been seen by pulmonary medicine and is outside the window for Remdesivir and does not meet criteria for Baricitinib. Patient is on Ventolin inhaler, vitamin supplements, dexamethasone 6 mg IV daily, Lovenox 40 mg subcu daily. 08/19: Patient is seen today on the [facility] floor. He is on 3 L nasal cannula with pulse ox of 94%. His been afebrile, heart rate 87, blood pressure 135/85. She is currently on Ventolin inhaler, vitamin supplements, Lovenox, Decadron 6 mg IV push daily. He is followed by pulmonary medicine. Repeat blood work reveals potassium of 5.4, creatinine 0.85. AST 107, ALT 72, alkaline phosphatase 45. LDH 1828, C-reactive protein 17.6. 08/20: Patient states that he slept well last night he states he is still having muscle aches and is complaining of constipation. Oxygen saturation is 89-94% on 3-4 L. He has been afebrile, heart rate 107, blood pressure 157/89. LDH 2105. C-reactive protein 15. We had anticipated discharge home today but due to patient's increased oxygen need, patient's discharge will be held. Possible discharge tomorrow. 08/21: Patient is on oxygen now increased to 6 L pulse ox of 82%. We'll ask for humidification and extension. Patient states that he is using incentive spirometry. Repeat chest x-ray reveals similar borderline cardiomegaly and right greater than left Covid infiltrates. Repeat blood work reveals d-dimer 16.11. LDH 2163, C-reactive protein 6.7. Bilateral lower extremity ultrasound negative for DVT. Augmentin was added yesterday by pulmonary medicine. 08/22: Patient is found sitting up in a chair. He is in moderate distress. At this time his prognosis is guarded. His oxygen has been increased to 6 L. His pulse ox around the 5-90%. Patient is anxious and feels tired. Patient is not sleeping well due to not being able to be comfortable either in chair or lying in bed. Patient is complaining of tightness to his bilateral calfs. Bilateral venous Dopplers were negative for DVT. He remains on Lovenox. Lasix 40 mg IV will be added. Patient continues to use his incentive spirometer. His repeat chest x-ray is similar to previous which shows borderline cardiomegaly and right greater than left Covid infiltrates. We will schedule patient for a CT today. REVIEW OF SYSTEMS Constitutional: no fever and chills with night sweats-improved, no weight change, generalized weakness fatigue and tiredness. EENT: No headache. No blurred vision or double vision, no loss of vision. No loss of Hearing, no ringing in the ears, no dizziness. No nasal drainage or congestion. Reports mild epistaxis. No sore throat. Lungs: positive shortness of breath cough mild wheezes and productive sputum. Reports dyspnea with exertion. Cardiovascular: No chest pain, no lower extremity edema. No palpitations. No paroxysmal nocturnal dyspnea. No orthopnea. No lightheadedness or dizziness. No syncopal episodes. Abdominal: positive abdominal pain. No nausea, vomiting. No diarrhea. No constipation. No bloody or tarry stools.. No loss of appetite. Genitourinary: No dysuria, increased frequency, urgency. No urinary retention. Musculoskeletal: No myalgias. No muscle weakness, no gait dysfunction, no frequent falls. No back pain. No neck pain. Integumentary: No wounds, no lesions. No rash or pruritus. No unusual bruising. No change in hair or nails. Neurologic: No aphasia. No facial droop. No change in mentation. No head injury. No headache. No paralysis. No paresthesia. Psychiatric: No depression. No anxiety. No mood swings. Endocrine: No abnormal blood sugars. No weight change. No excessive sweating or thirst. No cold intolerance. PHYSICAL EXAMINATION Gen: This is well-developed 61-year-old male does not look in any respiratory distress while he is resting in bed with still have oxygen on 2 L to keep his pulse ox above 90 percentile. HEENT: Head is atraumatic, normocephalic. Pupils equal, round. Sclerae is anicteric. NECK: Supple. No JVD. No lymphadenopathy. No thyromegaly. LUNGS: decrease + bilaterally with fine rhonchi mild crackles in the bases specially the right side with mild expiratory wheezes. HEART: Regular rate and rhythm. No murmur. ABDOMEN: Soft. Bowel sounds are present. No masses. No tenderness. EXTREMITIES: No pedal edema. No calf tenderness. NEUROLOGICAL: Patient is awake, alert and oriented x3. Cranial nerves 2 through 12 are grossly intact. ASSESSMENT AND PLAN 1. Sepsis secondary to COVID-19 pneumonitis: Patient be admitted to the hospital, continue Ventolin inhaler, vitamin supplements, dexamethasone 6 mg IV daily, Lovenox 40 mg subcu daily. Pulmonary consult appreciated. Continue oxygen therapy at 9 L nasal cannula. Augmentin added. 2 severe hypoxia: Most likely from COVID-19, will watch for any secondary infection as well continue O2 to keep his pulse ox 90 percentile and still use updraft treatment. Bilateral venous Dopplers negative for DVT. Repeat chest CT today. Lasix 40 mg IV daily 3 history of asthma: Has been on albuterol inhaler along with dexamethasone. 4 hypertension: Has been on losartan 50 mg a day we'll resume medication. 6 DVT venous thrombosis patient most likely has coagulopathy was start on Lovenox 40 mg daily. 7 GI prophylaxis: Patient be on Pepcid 20 mg a day along with Zofran on as needed basis. 8 CODE STATUS: Full code. 9. COVID-19 testing was positive DISCHARGE PLAN Home once stabilized Impression and plan of care have been directed as dictated by the signing physician. Jenniffer Burns nurse practitioner acting as scribe for signing physician. Objective - Vital Signs Vital signs: Vital Signs Temp 98.9 F 08/22/21 09:14 Pulse 112 H 08/22/21 09:14 Resp 20 08/22/21 09:14 BP 165/96 08/22/21 09:14 Pulse Ox 90 L 08/22/21 09:15 Intake & Output 08/21/21 08/22/21 08/22/21 18:59 06:59 18:59 Intake Total 540 Output Total 300 Balance -300 540 Intake: Oral 540 Output: Urine 300 Other: Voiding Method Bedside Commode Urinal # Voids 4 # Bowel Movements 1 - Labs CBC & Chem 7: 08/17/21 14:36 08/19/21 10:34
[2021-08-22] MEDS: FUROSEMIDE 10 MG/ML 4 ML VIAL IV SCH (12:38)
--- NOTE | 2021-08-22 15:08 | P.PN ---
Subjective Progress Note Date: 08/22/21 This a very pleasant 61-year-old male patient with a history of hypertension, nephrolithiasis requiring stent placement to the right ureter who follows with Dr. Hooper as his primary care provider. He presented here to the emergency room yesterday with complaints of increasing shortness breath, cough congestion fever since 08/10/2021. He tested positive on 08/11/2021 with COVID-19. He is not vaccinated. He is currently seen in the emergency department. Currently resting fairly comfortably in bed. He is on 2 L nasal cannula to maintain O2 saturation is a low 90s. Chest x-ray does reveal evidence of bilateral multifocal opacities CT angiogram was suboptimal but no large central or definite lobar branch pulmonary emboli. Again bilateral patchy groundglass opacities consistent with COVID-19 pneumonia. Right greater than left. White count 10.0. Hemoglobin 15.7. Platelets 135. Lymphocytes 0.6. D-dimer 0.69. Sodium 133. Potassium 4.1. Creatinine 1.1. AST 129. ALT 59. LDH 1545. C- reactive protein 23.9. Pro-calcitonin 0.52. He's been initiated on Decadron, Lovenox, vitamin supplements. Outside the window for Remdesivir. Not meeting criteria for Baricitinib. On 08-19-2021 patient seen in follow-up on medical surgical floor. He is awake and alert, he sitting up in the recliner, in no acute distress, he states his breathing and coughing are significantly improved, he is currently on 3 L of oxygen pulse ox is 90-94%, lung sounds are positive for diffuse crackles through out, cough is nonproductive, no complete chest discomfort. His been afebrile overnight, vital signs have been stable, tolerating oral intake, no nausea vomiting diarrhea, currently continues on Decadron 6 blood gram daily, he is on Lovenox 40 mg daily, COVID-19 multivitamins, today's labs have been reviewed, sodium is improved and is up to 142, potassium is 5.4, chloride is 104, B1 is 20, creatinine 0.85, AST is 107, slightly improved, and ALT is 72, slightly worsened, alkaline phosphatase is 45, within normal limits, his LDH has slightly increased, and is up to 1828, CRP is improved and is down to 17.6. His pro- calcitonin level was 0.52, borderline. On 08/20/2021 patient seen in follow-up on medical surgical floor, he states his cough is improved, although still persist, in he is now bringing up some brownish colored phlegm. He remains on 3 L of oxygen his pulse ox is 89-92%. Lung sounds are diminished at the bases, with bibasilar crackles, his pro- calcitonin on admission was borderline elevated, although repeat pro-calcitonin today came back improved at 0.27 down from 0.52 on admission, his inflammatory markers were reviewed, his LDH has increased and is up to 2105, and CRP is 15, d-dimer is negative at 0.54, patient is afebrile, blood pressure stable, he is asking if he is currently given any antibiotics. He remains on dexamethasone 6 mg daily, remains on multivitamins, and prophylactic dose Lovenox. On 08/21/2021 patient seen in follow-up on medical surgical floor, his oxygen requirements have slightly increased, he is currently on 5 L of oxygen compared to 3 L and yesterday's exam, his pulse ox is 89-91%, he is dyspneic with exertion but appears to be no acute distress, lung sounds reveal diffuse coarse crackles bilaterally, he still coughing up some brownish colored phlegm, yesterday we started him on oral Augmentin for empiric antibiotic coverage, he continues on Decadron 6 mg daily, he is on prophylactic dose Lovenox and inhaled bronchodilators. He's had no acute events overnight, no complaints of hemoptysis, no combines of chest discomfort. His chest x-ray today shows cardiomegaly and right greater than left COVID-19 infiltrates. Today's labs have been reviewed, his inflammatory markers have trended up and LDH is up to 2163, and CRP 6.7 improved since admission, pro-calcitonin level was 0.27, his d-dimer has increased to 16.1, his CT angios of the chest was suboptimal contrast bolus and breathing motion artifact however there was no evidence of a large central or definite lobar branch pulmonary embolism. The patient is seen today 08/22/2021 in follow-up on the regular medical floor. He is currently sitting up in a chair at the bedside. Awake and alert in no acute distress. He is up to 11 L high flow nasal cannula to maintain O2 saturation 90%. Dopplers of the lower extremity were negative for DVT. CT scan of the chest reveals worsening right greater than left bilateral multifocal groundglass opacities.. He is continued on Lovenox, Decadron, vitamin supplements. He is working with the incentive spirometer. He is receiving Lasix. Antibiotics in the form of Augmentin. Sputum culture pending. Objective - Vital Signs Vital signs: Vital Signs Temp 98.2 F 08/22/21 13:56 Pulse 115 H 08/22/21 13:56 Resp 20 08/22/21 13:56 BP 151/78 08/22/21 13:56 Pulse Ox 90 L 08/22/21 13:56 Intake & Output 08/21/21 08/22/21 08/22/21 18:59 06:59 18:59 Intake Total 540 Output Total 300 Balance -300 540 Intake: Oral 540 Output: Urine 300 Other: Voiding Method Bedside Commode Urinal # Voids 4 # Bowel Movements 1 - Exam GENERAL EXAM: Alert, pleasant 61-year-old male patient, on 11 L high flow nasal cannula, up in a chair at the bedside, fairly, comfortable in no apparent distress. HEAD: Normocephalic. EYES: Normal reaction of pupils, equal size. NOSE: Clear with pink turbinates. THROAT: No erythema or exudates. NECK: No masses, no JVD. CHEST: No chest wall deformity. LUNGS: Equal air entry with bibasilar crackles CVS: S1 and S2 normal with no audible murmur, regular rhythm. ABDOMEN: No hepatosplenomegaly, normal bowel sounds, no guarding or rigidity. SPINE: No scoliosis or deformity SKIN: No rashes CENTRAL NERVOUS SYSTEM: No focal deficits, tone is normal in all 4 extremities. EXTREMITIES: There is no peripheral edema. No clubbing, no cyanosis. Peripheral pulses are intact.. - Labs CBC & Chem 7: 08/17/21 14:36 08/19/21 10:34 Labs: Microbiology - Last 24 Hours (Table) 08/21/21 23:38 Sputum Culture - Preliminary Sputum Assessment and Plan Assessment: 1 Acute hypoxic respiratory failure secondary to COVID-19 pneumonia. Symptoms started 08/10/2021. Tested positive on 08/11/2021. Outside the window for Remdesivir. Not meeting requirements for Baricitinib. Currently on 11 L nasal cannula. Not vaccinated. 2 Elevated inflammatory markers secondary to above 3 Mild transaminitis secondary to above 4 History of hypertension 5 History of nephrolithiasis with previous stent placement to the right ureter Plan: The patient was seen and evaluated CAT scan, labs reviewed Requiring 11 L high flow nasal cannula Continue to titrate the FiO2 as tolerated Continue Decadron, Lovenox, vitamin supplements Follow-up labs in the a.m. We will continue to follow I, the cosigning physician, performed a history & physical examination of the patient. Lungs sounds with crackles in bilateral bases right greater than. Maintaining good O2 saturations in the 90s on 11 L/m per nasal cannula. I discussed the assessment and plan of care with my nurse practitioner, Nela Patterson. I attest to the above note as dictated by her.
[2021-08-22] MEDS: LOSARTAN 50 MG TAB PO SCH (22:05)
[2021-08-23] MEDS: ASPIRIN 81 MG PO SCH (08:27)
[2021-08-23] MEDS: CHOLECALCIFEROL 125 MCG (5000 IU) TABLET PO SCH (08:27)
[2021-08-23] MEDS: ALPRAZolam 0.25 MG TAB PO PRN ×3 (08:27→22:32)
[2021-08-23] MEDS: ZINC SULFATE 220 MG CAP PO SCH (08:27)
[2021-08-23] MEDS: FUROSEMIDE 10 MG/ML 4 ML VIAL IV SCH (08:27)
[2021-08-23] MEDS: ASCORBIC ACID 500 MG TAB PO SCH (08:27)
[2021-08-23] MEDS: FAMOTIDINE 20 MG TAB PO SCH (08:27)
[2021-08-23] MEDS: AMOXIC-POT CLAV 875-125MG 1 EACH TAB PO SCH ×2 (08:27→21:48)
[2021-08-23] MEDS: ENOXAPARIN 40 MG/0.4 ML SYRINGE SQ SCH (08:28)
[2021-08-23] MEDS: DEXAMETHASONE SOD PHOSPHATE 10 MG/ML 1 ML VIAL IVP SCH ×2 (08:28→21:48)
[2021-08-23] MEDS: ALBUTEROL HFA INHALER INHALATION SCH ×4 (09:12→19:40)
--- NOTE | 2021-08-23 13:26 | P.PN ---
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 Patient today become extremely sick developed to have worsening fever or chills abdominal pain with nausea without vomiting worsening shortness of breath with cough productive phlegm and finally become extremely hypoxic with minimal exertion. Ended up coming to the emergency department at [facility] where was seen and evaluated his oxygen level was in the mid 80. Patient was started on oxygen, updraft treat ment,Decadron along with multivitamins. Patient will be admitted to the hospital will be seen pulmonary watch his marker watch for any worsening symptoms with his high risk of clotting and coagulopathy patient be started on Lovenox as well. 08/18: Patient is seen today in [facility] emergency [facility]. Pulse ox is 97% on 2 L nasal cannula. He has been afebrile, heart rate 80, blood pressure 118/78. Patient has been seen by pulmonary medicine and is outside the window for Remdesivir and does not meet criteria for Baricitinib. Patient is on Ventolin inhaler, vitamin supplements, dexamethasone 6 mg IV daily, Lovenox 40 mg subcu daily. 08/19: [facility]. He is on 3 L nasal cannula with pulse ox of 94%. His been afebrile, heart rate 87, blood pressure 135/85. She is currently on Ventolin inhaler, vitamin supplements, Lovenox, Decadron 6 mg IV push daily. He is followed by pulmonary medicine. Repeat blood work reveals potassium of 5.4, creatinine 0.85. AST 107, ALT 72, alkaline phosphatase 45. LDH 1828, C-reactive protein 17.6. 08/20: Patient states that he slept well last night he states he is still having muscle aches and is complaining of constipation. Oxygen saturation is 89-94% on 3-4 L. He has been afebrile, heart rate 107, blood pressure 157/89. LDH 2105. C-reactive protein 15. We had anticipated discharge home today but due to patient's increased oxygen need, patient's discharge will be held. Possible discharge tomorrow. 08/21: Patient is on oxygen now increased to 6 L pulse ox of 82%. We'll ask for humidification and extension. Patient states that he is using incentive spirometry. Repeat chest x-ray reveals similar borderline cardiomegaly and right greater than left Covid infiltrates. Repeat blood work reveals d-dimer 16.11. LDH 2163, C-reactive protein 6.7. Bilateral lower extremity ultrasound negative for DVT. Augmentin was added yesterday by pulmonary medicine. 08/22: Patient is found sitting up in a chair. He is in moderate distress. At this time his prognosis is guarded. His oxygen has been increased to 6 L. His pulse ox around the 5-90%. Patient is anxious and feels tired. Patient is not sleeping well due to not being able to be comfortable either in chair or lying in bed. Patient is complaining of tightness to his bilateral calfs. Bilateral venous Dopplers were negative for DVT. He remains on Lovenox. Lasix 40 mg IV will be added. Patient continues to use his incentive spirometer. His repeat chest x-ray is similar to previous which shows borderline cardiomegaly and right greater than left Covid infiltrates. We will schedule patient for a CT today. 08/23: Patient is found sitting up in a chair. He is in moderate distress. Patient states that he is feeling BETTER today compared to yesterday. Patient diuresed with a significant amount of output. Chest CAT scan shows Worsening right greater than left bilateral multifocal groundglass opacities and org anizing consolidations consistent with COVID-19 infection progression and/or developing ARDS. We will continue with Lasix 40 mg daily. Patient to use incentive spirometer. Redness is guarded. REVIEW OF SYSTEMS Constitutional: no fever and chills with night sweats-improved, no weight change, generalized weakness fatigue and tiredness. EENT: No headache. No blurred vision or double vision, no loss of vision. No loss of Hearing, no ringing in the ears, no dizziness. No nasal drainage or congestion. Reports mild epistaxis. No sore throat. Lungs: positive shortness of breath cough mild wheezes and productive sputum. Reports dyspnea with exertion. Cardiovascular: No chest pain, no lower extremity edema. No palpitations. No paroxysmal nocturnal dyspnea. No orthopnea. No lightheadedness or dizziness. No syncopal episodes. Abdominal: positive abdominal pain. No nausea, vomiting. No diarrhea. No constipation. No bloody or tarry stools.. No loss of appetite. Genitourinary: No dysuria, increased frequency, urgency. No urinary retention. Musculoskeletal: No myalgias. No muscle weakness, no gait dysfunction, no frequent falls. No back pain. No neck pain. Integumentary: No wounds, no lesions. No rash or pruritus. No unusual bruising. No change in hair or nails. Neurologic: No aphasia. No facial droop. No change in mentation. No head injury. No headache. No paralysis. No paresthesia. Psychiatric: No depression. No anxiety. No mood swings. Endocrine: No abnormal blood sugars. No weight change. No excessive sweating or thirst. No cold intolerance. PHYSICAL EXAMINATION Gen: This is well-developed 61-year-old male does not look in any respiratory distress while he is resting in bed with still have oxygen on 2 L to keep his pulse ox above 90 percentile. HEENT: Head is atraumatic, normocephalic. Pupils equal, round. Sclerae is anicteric. NECK: Supple. No JVD. No lymphadenopathy. No thyromegaly. LUNGS: decrease + bilaterally with fine rhonchi mild crackles in the bases specially the right side with mild expiratory wheezes. HEART: Regular rate and rhythm. No murmur. ABDOMEN: Soft. Bowel sounds are present. No masses. No tenderness. EXTREMITIES: No pedal edema. No calf tenderness. NEUROLOGICAL: Patient is awake, alert and oriented x3. Cranial nerves 2 through 12 are grossly intact. ASSESSMENT AND PLAN 1. Sepsis secondary to COVID-19 pneumonitis: Patient be admitted to the hospital, continue Ventolin inhaler, vitamin supplements, dexamethasone 6 mg IV daily, Lovenox 40 mg subcu daily. Pulmonary consult appreciated. Continue oxygen therapy at 9 L nasal cannula. Augmentin added. 2 severe hypoxia: Most likely from COVID-19, will watch for any secondary infection as well continue O2 to keep his pulse ox 90 percentile and still use updraft treatment. Bilateral venous Dopplers negative for DVT. Repeat chest CT today. Lasix 40 mg IV daily 3 history of asthma: Has been on albuterol inhaler along with dexamethasone. 4 hypertension: Has been on losartan 50 mg a day we'll resume medication. 6 DVT venous thrombosis patient most likely has coagulopathy was start on Lovenox 40 mg daily. 7 GI prophylaxis: Patient be on Pepcid 20 mg a day along with Zofran on as needed basis. 8 CODE STATUS: Full code. 9. COVID-19 testing was positive DISCHARGE PLAN Home once stabilized Impression and plan of care have been directed as dictated by the signing physician. Jenniffer Burns nurse practitioner acting as scribe for signing physician. Objective - Vital Signs Vital signs: Vital Signs Temp 97.3 F L 08/23/21 08:55 Pulse 108 H 08/23/21 08:55 Resp 17 08/23/21 08:55 BP 161/102 08/23/21 08:55 Pulse Ox 89 L 08/23/21 08:55 Intake & Output 08/22/21 08/23/21 08/23/21 18:59 06:59 18:59 Intake Total 1160 400 Output Total 1200 1760 1040 Balance -40 -1360 -1040 Intake: Oral 1160 400 Output: Urine 1200 1760 1040 Other: Voiding Method Bedside Commode Bedside Commode Bedside Commode Urinal Urinal Urinal # Voids 2 3 # Bowel Movements 0 - Labs CBC & Chem 7: 08/17/21 14:36 08/19/21 10:34 Labs: Microbiology - Last 24 Hours (Table) 08/21/21 23:38 Gram Stain - Final Sputum Sputum Culture - Final
--- NOTE | 2021-08-23 14:25 | P.PN ---
Subjective Progress Note Date: 08/23/21 Principal diagnosis: Dyspnea, cough This a very pleasant 61-year-old male patient with a history of hypertension, nephrolithiasis requiring stent placement to the right ureter who follows with Dr. Hooper as his primary care provider. He presented here to the emergency room yesterday with complaints of increasing shortness breath, cough congestion fever since 08/10/2021. He tested positive on 08/11/2021 with COVID-19. He is not vaccinated. He is currently seen in the emergency department. Currently resting fairly comfortably in bed. He is on 2 L nasal cannula to maintain O2 saturation is a low 90s. Chest x-ray does reveal evidence of bilateral multifocal opacities CT angiogram was suboptimal but no large central or definite lobar branch pulmonary emboli. Again bilateral patchy groundglass opacities consistent with COVID-19 pneumonia. Right greater than left. White count 10.0. Hemoglobin 15.7. Platelets 135. Lymphocytes 0.6. D-dimer 0.69. Sodium 133. Potassium 4.1. Creatinine 1.1. AST 129. ALT 59. LDH 1545. C- reactive protein 23.9. Pro-calcitonin 0.52. He's been initiated on Decadron, Lovenox, vitamin supplements. Outside the window for Remdesivir. Not meeting criteria for Baricitinib. On 08-19-2021 patient seen in follow-up on medical surgical floor. He is awake and alert, he sitting up in the recliner, in no acute distress, he states his breathing and coughing are significantly improved, he is currently on 3 L of oxygen pulse ox is 90-94%, lung sounds are positive for diffuse crackles throughout, cough is nonproductive, no complete chest discomfort. His been afebrile overnight, vital signs have been stable, tolerating oral intake, no nausea vomiting diarrhea, currently continues on Decadron 6 blood gram daily, he is on Lovenox 40 mg daily, COVID-19 multivitamins, today's labs have been reviewed, sodium is improved and is up to 142, potassium is 5.4, chloride is 104, B1 is 20, creatinine 0.85, AST is 107, slightly improved, and ALT is 72, slightly worsened, alkaline phosphatase is 45, within normal limits, his LDH has slightly increased, and is up to 1828, CRP is improved and is down to 17.6. His pro-calcitonin level was 0.52, borderline. On 08/20/2021 patient seen in follow-up on medical surgical floor, he states his cough is improved, although still persist, in he is now bringing up some brownish colored phlegm. He remains on 3 L of oxygen his pulse ox is 89-92%. Lung sounds are diminished at the bases, with bibasilar crackles, his pro- calcitonin on admission was borderline elevated, although repeat pro-calcitonin today came back improved at 0.27 down from 0.52 on admission, his inflammatory markers were reviewed, his LDH has increased and is up to 2105, and CRP is 15, d-dimer is negative at 0.54, patient is afebrile, blood pressure stable, he is asking if he is currently given any antibiotics. He remains on dexamethasone 6 mg daily, remains on multivitamins, and prophylactic dose Lovenox. On 08/21/2021 patient seen in follow-up on medical surgical floor, his oxygen requirements have slightly increased, he is currently on 5 L of oxygen compared to 3 L and yesterday's exam, his pulse ox is 89-91%, he is dyspneic with exertion but appears to be no acute distress, lung sounds reveal diffuse coarse crackles bilaterally, he still coughing up some brownish colored phlegm, yesterday we started him on oral Augmentin for empiric antibiotic coverage, he continues on Decadron 6 mg daily, he is on prophylactic dose Lovenox and inhaled bronchodilators. He's had no acute events overnight, no complaints of hemoptysis, no combines of chest discomfort. His chest x-ray today shows cardiomegaly and right greater than left COVID-19 infiltrates. Today's labs have been reviewed, his inflammatory markers have trended up and LDH is up to 2163, and CRP 6.7 improved since admission, pro-calcitonin level was 0.27, his d-dimer has increased to 16.1, his CT angios of the chest was suboptimal contra st bolus and breathing motion artifact however there was no evidence of a large central or definite lobar branch pulmonary embolism. On 08/23/2021 patient seen in follow-up on medical surgical floor. Patient is currently up to 11 L of oxygen, his pulse ox is 89-92%, and as such his oxygenation has progressively worsened over. Of last 48 hours, patient is afebrile, hemodynamically stable, he states she still coughing up some brownish colored phlegm, another sputum culture was sent today, patient has been on Augmentin for empiric antibiotic coverage, he continues on Decadron 6 mg daily, and she also received a dose of IV Lasix today, yesterday CT chest without contrast was completed showing worsening right greater than left bilateral multifocal ground glass opacities and organizing consolidation consistent with COVID-19 infection progression and or developing ARDS. His lower extremity Dopplers were negative for DVT. he has not had any labs in the last couple of days. Objective - Vital Signs Vital signs: Vital Signs Temp 97.3 F L 08/23/21 08:55 Pulse 108 H 08/23/21 08:55 Resp 17 08/23/21 08:55 BP 161/102 08/23/21 08:55 Pulse Ox 89 L 08/23/21 08:55 Intake & Output 08/22/21 08/23/21 08/23/21 18:59 06:59 18:59 Intake Total 1160 400 Output Total 1200 1760 1040 Balance -40 -1360 -1040 Intake: Oral 1160 400 Output: Urine 1200 1760 1040 Other: Voiding Method Bedside Commode Bedside Commode Bedside Commode Urinal Urinal Urinal # Voids 2 3 # Bowel Movements 0 - Exam GENERAL EXAM: Alert, very pleasant, 61-year-old white male on 11 L of oxygen pulse ox is 89% moderately of breath HEAD: Normocephalic/atraumatic. EYES: Normal reaction of pupils, equal size. Conjunctiva pink, sclera white. NOSE: Clear with pink turbinates. THROAT: No erythema or exudates. NECK: No masses, no JVD, no thyroid enlargement, no adenopathy. CHEST: No chest wall deformity. Symmetrical expansion. LUNGS: Equal air entry with bilateral crackles CVS: Regular rate and rhythm, normal S1 and S2, no gallops, no murmurs, no rubs ABDOMEN: Soft, nontender. No hepatosplenomegaly, normal bowel sounds, no guarding or rigidity. EXTREMITIES: No clubbing, no edema, no cyanosis, 2+ pulses and upper and lower extremities. MUSCULOSKELETAL: Muscle strength and tone normal. SPINE: No scoliosis or deformity SKIN: No rashes CENTRAL NERVOUS SYSTEM: Alert and oriented -3. No focal deficits, tone is normal in all 4 extremities. PSYCHIATRIC: Alert and oriented -3. Appropriate affect. Intact judgment and insight. - Labs CBC & Chem 7: 08/17/21 14:36 08/19/21 10:34 Labs: Microbiology - Last 24 Hours (Table) 08/21/21 23:38 Gram Stain - Final Sputum Sputum Culture - Final Assessment and Plan Plan: Assessment: #1. Acute hypoxic respiratory failure secondary to acute COVID-19 pneumonia, onset of symptoms of 08/10/2021, patient tested positive on 08/11/2021, patient was outside the window for Remdesivir, not vaccinated, and today on 08/21/2021 patient's oxygenation seems to have worsened, and patient is on 11 L of oxygen, with increasing Fio2 needs, will be placed on Airvo, however he is not a Barici tinib candidate in view of possibility of underlying infection, patient is on Augmentin #2. Elevated inflammatory markers related to the above, with a trend up in the LDH levels #3. Mild transaminitis secondary to the above, improved #4. Increased d-dimer of 16.1, CT angios of the chest was negative for definite central or lobar branch pulmonary embolism, and no evidence of DVT on lower extr emity Dopplers #5. Hypertension #6. History of nephrolithiasis with previous stent placement in the right ureter #7. History of chronic bronchial asthma, unspecified #8. Previous history of DVT in the left leg #9. Lifetime nonsmoker Plan: Oxygenation continues to worsen a bit every day, CT chest showed worsening groundglass opacities Increase Decadron to 6 g twice daily Continue with current dose Lovenox Continue Augmentin We'll try to obtain a sputum sample We'll obtain a blood culture We'll place the patient on Airvo and titrate FiO2 to keep O2 sats at or above 90% Would hold further diuretics Overall prognosis is guarded We'll continue to follow I performed a history & physical examination of the patient and discussed their management with my nurse practitioner, Neyda Frances. I reviewed the nurse practitioner's note and agree with the documented findings and plan of care. Lung sounds are positive for diffuse wheezes throughout the lung smith. The findings and the impression was discussed with the patient. I attest to the documentation by the nurse practitioner. Time with Patient: Less than 30
[2021-08-23 15:53] LABS: ALT 110 U/L (4-49); AST 71 U/L (17-59); African American GFR (CKD) >90 (>60 ml/min/1.73 sqM); Albumin 3.7 g/dL (3.5-5.0); Albumin/Globulin Ratio 1.2; Alkaline Phosphatase 71 U/L (38-126); Anion Gap 7 mmol/L; Basophils % (A) 0 %; Blood Urea Nitrogen 21 mg/dL (9-20); Calcium 9.2 mg/dL (8.4-10.2); Carbon Dioxide 35 mmol/L (22-30); Chloride 96 mmol/L (98-107); Eosinophils % (A) 0 %; Globulin 3.2 g/dL; Glucose 104 mg/dL (74-99); HCT 50.8 % (39.0-53.0); HGB 15.9 gm/dL (13.0-17.5); Hypochromasia Slight; Lymphocytes # (A) 0.4 k/uL (1.0-4.8); Lymphocytes % (A) 3 %; MCH 30.7 pg (25.0-35.0); MCHC 31.4 g/dL (31.0-37.0); MCV 97.8 fL (80.0-100.0); Monocytes # (A) 0.5 k/uL (0-1.0); Monocytes % (A) 3 %; Neutrophils # (A) 13.4 k/uL (1.3-7.7); Neutrophils % (A) 93 %; Non-African American GFR(CKD) 81 (>60 ml/min/1.73 sqM); Platelet Count 188 k/uL (150-450); Potassium 4.7 mmol/L (3.5-5.1); RBC 5.19 m/uL (4.30-5.90); RDW 13.6 % (11.5-15.5); Sodium 138 mmol/L (137-145); Total Bilirubin 1.1 mg/dL (0.2-1.3); Total Protein 6.9 g/dL (6.3-8.2); WBC 14.4 k/uL (3.8-10.6)
[2021-08-23 16:04] LABS: C Reactive Protein 23.4 mg/dL (<1.0); LDH 2303 U/L (313-618)
--- NOTE | 2021-08-23 17:41 | CT ---
EXAMINATION TYPE: CT chest angio for PE DATE OF EXAM: 08/23/2021 COMPARISON: 08/22/2021 HISTORY: Elevated d-dimer and covid. CT DLP: 445.8 mGycm Automated exposure control for dose reduction was used. CONTRAST: Performed with IV Contrast, patient injected with 100ml mL of Isovue 370. There are Three-D postprocessed images. There is moderate interstitial and airspace infiltrate throughout both lungs and worse on the right s kam. There is no mediastinal adenopathy. There are no hilar masses. There is filling defect in the ri ght lower lobe pulmonary artery and the lateral basal segment branch. The heart size is fairly normal. There is no pericardial effusion. Bony thorax is intact. There is no compression fracture. Sternum is intact. IMPRESSION: Extensive pulmonary infiltrates are worse than last exam. This is consistent with multifocal pneumoni a. There is right lower lobe pulmonary embolism involving the lateral basal segment. Previous exam is no ndiagnostic in this area.
[2021-08-23] MEDS: ENOXAPARIN 100 MG/ML SYRINGE SQ SCH (21:47)
[2021-08-23] MEDS: LOSARTAN 50 MG TAB PO SCH (21:49)
[2021-08-23] MEDS: ARTIFICIAL TEARS OINTMENT 3.5 GM TUBE BOTH EYES PRN (22:33)
[2021-08-24] MEDS: MAG HYDROX/AL HYDROX/SIMETH 30 ML CUP PO PRN (02:14)
--- NOTE | 2021-08-24 07:54 | XR ---
EXAMINATION TYPE: XR chest 1V portable DATE OF EXAM: 08/24/2021 CLINICAL HISTORY: Difficulty breathing progress study. TECHNIQUE: Single AP portable upright view of the chest is obtained. COMPARISON: Chest CTA from yesterday. Chest x-ray from 3 days earlier FINDINGS: Persistent bilateral multifocal and confluent opacities greater in the right lung. Cardiac silhouettes size is stable and upper limits of normal. Osseous structures are intact. IMPRESSION: Persistent right greater than left bilateral multifocal and confluent opacities consisten t with known covid-19 infarction are redemonstrated. No significant change from most recent studies.
[2021-08-24] MEDS: ENOXAPARIN 100 MG/ML SYRINGE SQ SCH ×2 (08:33→20:39)
[2021-08-24] MEDS: CHOLECALCIFEROL 125 MCG (5000 IU) TABLET PO SCH (08:33)
[2021-08-24] MEDS: ZINC SULFATE 220 MG CAP PO SCH (08:33)
[2021-08-24] MEDS: ASCORBIC ACID 500 MG TAB PO SCH (08:33)
[2021-08-24] MEDS: FAMOTIDINE 20 MG TAB PO SCH (08:33)
[2021-08-24] MEDS: ASPIRIN 81 MG PO SCH (08:33)
[2021-08-24] MEDS: AMOXIC-POT CLAV 875-125MG 1 EACH TAB PO SCH (08:33)
[2021-08-24] MEDS: DEXAMETHASONE SOD PHOSPHATE 10 MG/ML 1 ML VIAL IVP SCH ×2 (08:34→20:39)
[2021-08-24] MEDS: FUROSEMIDE 10 MG/ML 4 ML VIAL IV SCH (08:35)
[2021-08-24] MEDS: ALBUTEROL HFA INHALER INHALATION SCH ×4 (09:03→21:11)
[2021-08-24] MEDS: IBUPROFEN 400 MG TAB PO PRN (10:12)
[2021-08-24] MEDS: ALPRAZolam 0.25 MG TAB PO PRN ×3 (10:12→22:26)
[2021-08-24 14:38] VITALS: BMI 33.3
[2021-08-24] MEDS: BARICITINIB 2 MG TABLET PO SCH (16:30)
--- NOTE | 2021-08-24 17:05 | P.PN ---
Subjective Progress Note Date: 08/24/21 Principal diagnosis: Dyspnea, cough This a very pleasant 61-year-old male patient with a history of hypertension, nephrolithiasis requiring stent placement to the right ureter who follows with Dr. Hooper as his primary care provider. He presented here to the emergency room yesterday with complaints of increasing shortness breath, cough congestion fever since 08/10/2021. He tested positive on 08/11/2021 with COVID-19. He is not vaccinated. He is currently seen in the emergency department. Currently resting fairly comfortably in bed. He is on 2 L nasal cannula to maintain O2 saturation is a low 90s. Chest x-ray does reveal evidence of bilateral multifocal opacities CT angiogram was suboptimal but no large central or definite lobar branch pulmonary emboli. Again bilateral patchy groundglass opacities consistent with COVID-19 pneumonia. Right greater than left. White count 10.0. Hemoglobin 15.7. Platelets 135. Lymphocytes 0.6. D-dimer 0.69. Sodium 133. Potassium 4.1. Creatinine 1.1. AST 129. ALT 59. LDH 1545. C- reactive protein 23.9. Pro-calcitonin 0.52. He's been initiated on Decadron, Lovenox, vitamin supplements. Outside the window for Remdesivir. Not meeting criteria for Baricitinib. On 08-19-2021 patient seen in follow-up on medical surgical floor. He is awake and alert, he sitting up in the recliner, in no acute distress, he states his breathing and coughing are significantly improved, he is currently on 3 L of oxygen pulse ox is 90-94%, lung sounds are positive for diffuse crackles throughout, cough is nonproductive, no complete chest discomfort. His been afebrile overnight, vital signs have been stable, tolerating oral intake, no nausea vomiting diarrhea, currently continues on Decadron 6 blood gram daily, he is on Lovenox 40 mg daily, COVID-19 multivitamins, today's labs have been reviewed, sodium is improved and is up to 142, potassium is 5.4, chloride is 104, B1 is 20, creatinine 0.85, AST is 107, slightly improved, and ALT is 72, slightly worsened, alkaline phosphatase is 45, within normal limits, his LDH has slightly increased, and is up to 1828, CRP is improved and is down to 17.6. His pro-calcitonin level was 0.52, borderline. On 08/20/2021 patient seen in follow-up on medical surgical floor, he states his cough is improved, although still persist, in he is now bringing up some brownish colored phlegm. He remains on 3 L of oxygen his pulse ox is 89-92%. Lung sounds are diminished at the bases, with bibasilar crackles, his pro- calcitonin on admission was borderline elevated, although repeat pro-calcitonin today came back improved at 0.27 down from 0.52 on admission, his inflammatory markers were reviewed, his LDH has increased and is up to 2105, and CRP is 15, d-dimer is negative at 0.54, patient is afebrile, blood pressure stable, he is asking if he is currently given any antibiotics. He remains on dexamethasone 6 mg daily, remains on multivitamins, and prophylactic dose Lovenox. On 08/21/2021 patient seen in follow-up on medical surgical floor, his oxygen requirements have slightly increased, he is currently on 5 L of oxygen compared to 3 L and yesterday's exam, his pulse ox is 89-91%, he is dyspneic with exertion but appears to be no acute distress, lung sounds reveal diffuse coarse crackles bilaterally, he still coughing up some brownish colored phlegm, yesterday we started him on oral Augmentin for empiric antibiotic coverage, he continues on Decadron 6 mg daily, he is on prophylactic dose Lovenox and inhaled bronchodilators. He's had no acute events overnight, no complaints of hemoptysis, no combines of chest discomfort. His chest x-ray today shows cardiomegaly and right greater than left COVID-19 infiltrates. Today's labs have been reviewed, his inflammatory markers have trended up and LDH is up to 2163, and CRP 6.7 improved since admission, pro-calcitonin level was 0.27, his d-dimer has increased to 16.1, his CT angios of the chest was suboptimal contra st bolus and breathing motion artifact however there was no evidence of a large central or definite lobar branch pulmonary embolism. On 08/23/2021 patient seen in follow-up on medical surgical floor. Patient is currently up to 11 L of oxygen, his pulse ox is 89-92%, and as such his oxygenation has progressively worsened over. Of last 48 hours, patient is afebrile, hemodynamically stable, he states she still coughing up some brownish colored phlegm, another sputum culture was sent today, patient has been on Augmentin for empiric antibiotic coverage, he continues on Decadron 6 mg daily, and she also received a dose of IV Lasix today, yesterday CT chest without contrast was completed showing worsening right greater than left bilateral multifocal ground glass opacities and organizing consolidation consistent with COVID-19 infection progression and or developing ARDS. His lower extremity Dopplers were negative for DVT. he has not had any labs in the last couple of days. On the 2021 patient seen in follow-up on medical surgical floor. He is awake and alert, he is on irritable and 55 L and FiO2 of 79%, and his pulse ox is 91-96%, mildly dyspneic with conversation and exertion, but overall seems to be in no acute distress, he sitting up in the recliner, hemodynamically has been stable, his been afebrile, today's chest x-ray has been reviewed during persistent right greater than left bilateral multifocal and confluent opacities without significant change from his most recent studies, CTA chest was obtained showing extensive pulmonary infiltrates that were noted to be worsening and his last exam, this was consistent with multifocal pneumonia, and right lower lobe pulmonary embolism involving the lateral basal segment, and patient's Lovenox was adjusted to therapeutic dose, and is currently at 90 mg twice daily. Patient was previously on Augmentin, however his pro-calcitonin level is negative, his last 2 pro-calcitonin levels were 0.7, and 0.16, improving, sputum culture has shown no growth, his white count is 14.4, hemoglobin is 15.9, today's d-dimer is greater than 34, electrolytes showed sodium of 1:30, potassium is 4.7, chloride is 96, CO2 35, B1 is 21 creatinine 1.01. His inflammatory markers were trending up on yesterday's labs, and LDH was down to 2303, and CRP was up to 23.4. Objective - Vital Signs Vital signs: Vital Signs Temp 98.0 F 08/24/21 15:01 Pulse 91 08/24/21 15:01 Resp 21 08/24/21 15:01 BP 122/75 08/24/21 15:01 Pulse Ox 96 08/24/21 15:01 Intake & Output 08/23/21 08/24/21 08/24/21 18:59 06:59 18:59 Intake Total 600 Output Total 1280 200 850 Balance -1280 400 -850 Weight 93.7 kg 93.7 kg Intake: Oral 600 Output: Urine 1280 200 850 Other: Voiding Method Bedside Commode Bedside Commode Bedside Commode Urinal Urinal Urinal # Voids 1 4 1 # Bowel Movements 1 - Exam GENERAL EXAM: Alert, very pleasant, 61-year-old white male on Airvo currently at 55 L and FiO2 of 79% with a pulse ox of 91-96% HEAD: Normocephalic/atraumatic. EYES: Normal reaction of pupils, equal size. Conjunctiva pink, sclera white. NOSE: Clear with pink turbinates. THROAT: No erythema or exudates. NECK: No masses, no JVD, no thyroid enlargement, no adenopathy. CHEST: No chest wall deformity. Symmetrical expansion. LUNGS: Equal air entry with bilateral crackles CVS: Regular rate and rhythm, normal S1 and S2, no gallops, no murmurs, no rubs ABDOMEN: Soft, nontender. No hepatosplenomegaly, normal bowel sounds, no guarding or rigidity. EXTREMITIES: No clubbing, no edema, no cyanosis, 2+ pulses and upper and lower extremities. MUSCULOSKELETAL: Muscle strength and tone normal. SPINE: No scoliosis or deformity SKIN: No rashes CENTRAL NERVOUS SYSTEM: Alert and oriented -3. No focal deficits, tone is normal in all 4 extremities. PSYCHIATRIC: Alert and oriented -3. Appropriate affect. Intact judgment and insight. - Labs CBC & Chem 7: 08/23/21 15:05 08/23/21 15:05 Labs: Abnormal Lab Results - Last 24 Hours (Table) 08/23/21 Range/Units 15:05 Procalcitonin 0.16 H (0.02-0.09) ng/mL Assessment and Plan Plan: Assessment: #1. Acute hypoxic respiratory failure secondary to acute COVID-19 pneumonia, onset of symptoms of 08/10/2021, patient tested positive on 08/11/2021, patient was outside the window for Remdesivir, not vaccinated, and today on 08/21/2021 patient's oxygenation seems to have worsened, and patient is on 11 L of oxygen, with increasing Fio2 needs, will be placed on Airvo, patient was treated with empiric Augmentin for possibility of superinfection however his calcitonin level was negative 2, Augmentin will be discontinued and patient will be started on Baricitinib on 08/24/2021, patient remains on Airvo at 55 L and FiO2 of 79% #2. Acute right lower lobe pulmonary embolism, diagnosed per CTA chest on 08/23/2021, Lovenox dose was adjusted and increased to 90 mg twice daily #3. Elevated inflammatory markers related to the above, with a trend up in the LDH levels #4. Mild transaminitis secondary to the above, improved #5. Increased d-dimer of 16.1, CT angios of the chest was negative for definite central or lobar branch pulmonary embolism, and no evidence of DVT on lower extremity Dopplers #6. Hypertension #7. History of nephrolithiasis with previous stent placement in the right urete r #8. History of chronic bronchial asthma, unspecified #9. Previous history of DVT in the left leg #10. Lifetime nonsmoker Plan: Patient continues on Airvo currently a 55 L and FiO2 of 79% Mildly dyspneic and tachypneic however in no acute distress He was diagnosed with an acute right lower lobe pulmonary embolism and his Lovenox is increased to 90 mg twice daily Continue twice-daily dose of Decadron 6 mg Continue multivitamins We will discontinue Augmentin, 2 pro-calcitonin levels were negative, sputum culture is negative Patient will be started on Baricitinib Hold further diuretics We'll obtain basic lab work, follow-up inflammatory markers and the chest x-ray Continue following his clinical course closely Prognosis is guarded I performed a history & physical examination of the patient and discussed their management with my nurse practitioner, Neyda Frances. I reviewed the nurse practitioner's note and agree with the documented findings and plan of care. Lung sounds are positive for diffuse crackles throughout the lung smith. The findings and the impression was discussed with the patient. I attest to the documentation by the nurse practitioner. Time with Patient: Less than 30
--- NOTE | 2021-08-24 18:36 | P.PN ---
Subjective Progress Note Date: 08/24/21 Progress Note Date: 08/23/21 HISTORY OF PRESENT ILLNESS 61-year-old male one of Dr. Hooper patient with past medical history of asthma, DVT, hypertension hyperlipidemia and kidney stone who apparently developed to being sick for over a week and ended up having fever chills and body ache went to [facility] and was tested for COVID-19 on Tuesday came back positive he contacted his primary care was supposed to go for monoclonal anti- body which was delay and was not called until today. Patient today become extremely sick developed to have worsening fever or chills abdominal pain with nausea without vomiting worsening shortness of breath with cough productive phlegm and finally become extremely hypoxic with minimal exertion. Ended up coming to the emergency department at [facility] where was seen and evaluated his oxygen level was in the mid 80. Patient was started on oxygen, updraft treatment,Decadron along with multivitamins. Patient will be admitted to the hospital will be seen pulmonary watch his marker watch for any worsening symptoms with his high risk of clotting and coagulopathy patient be started on Lovenox as well. 08/18: Patient is seen today in the emergency center waiting for bed on the [facility] floor. Pulse ox is 97% on 2 L nasal cannula. He has been afebrile, heart rate 80, blood pressure 118/78. Patient has been seen by pulmonary medicine and is outside the window for Remdesivir and does not meet criteria for Baricitinib. Patient is on Ventolin inhaler, vitamin supplements, dexamethasone 6 mg IV daily, Lovenox 40 mg subcu daily. 08/19: Patient is seen today on the [facility] floor. He is on 3 L nasal cannula with pulse ox of 94%. His been afebrile, heart rate 87, blood pressure 135/85. She is currently on Ventolin inhaler, vitamin supplements, Lovenox, Decadron 6 mg IV push daily. He is followed by pulmonary medicine. Repeat blood work reveals potassium of 5.4, creatinine 0.85. AST 107, ALT 72, alkaline phosphatase 45. LDH 1828, C-reactive protein 17.6. 08/20: Patient states that he slept well last night he states he is still having muscle aches and is complaining of constipation. Oxygen saturation is 89-94% on 3-4 L. He has been afebrile, heart rate 107, blood pressure 157/89. LDH 2105. C-reactive protein 15. We had anticipated discharge home today but due to patient's increased oxygen need, patient's discharge will be held. Possible discharge tomorrow. 08/21: Patient is on oxygen now increased to 6 L pulse ox of 82%. We'll ask for humidification and extension. Patient states that he is using incentive spirometry. Repeat chest x-ray reveals similar borderline cardiomegaly and right greater than left Covid infiltrates. Repeat blood work reveals d-dimer 16.11. LDH 2163, C-reactive protein 6.7. Bilateral lower extremity ultrasound negative for DVT. Augmentin was added yesterday by pulmonary medicine. 08/22: Patient is found sitting up in a chair. He is in moderate distress. At this time his prognosis is guarded. His oxygen has been increased to 6 L. His pulse ox around the 5-90%. Patient is anxious and feels tired. Patient is not sleeping well due to not being able to be comfortable either in chair or lying in bed. Patient is complaining of tightness to his bilateral calfs. Bilateral venous Dopplers were negative for DVT. He remains on Lovenox. Lasix 40 mg IV will be added. Patient continues to use his incentive spirometer. His repeat chest x-ray is similar to previous which shows borderline cardiomegaly and right greater than left Covid infiltrates. We will schedule patient for a CT today. 08/23: Patient is found sitting up in a chair. He is in moderate distress. Patient states that he is feeling BETTER today compared to yesterday. Patient diuresed with a significant amount of output. Chest CAT scan shows Worsening right greater than left bilateral multifocal groundglass opacities and organizing consolidations consistent with COVID-19 infection progression and/or developing ARDS. We will continue with Lasix 40 mg daily. Patient to use incentive spirometer. Redness is guarded. 08/24: Patient is seen for follow-up, currently on airvo, 60 L nasal cannula, patient is to receive first dose of BARICINIB today as recommended by pulmonary, patient is on Lovenox high-dose, for a small right pulmonary emboli, involving the right basal segment. Patient has small amount of uncontrolled epistaxis at this time, can have when necessary AFRIN vitals are stable, systolic 122-131, RR in the 20s, double basic count 14.4 CO2 of 35, ALT AST elevated, glucose 104, creatinine 1.1 from a previous of 0.85 C-reactive protein is worse, 23, from a previous of 6.7 LDH of 2300 REVIEW OF SYSTEMS Constitutional: no fever and chills with night sweats-improved, no weight change, generalized weakness fatigue and tiredness. EENT: No headache. No blurred vision or double vision, no loss of vision. No loss of Hearing, no ringing in the ears, no dizziness. No nasal drainage or congestion. Reports mild epistaxis. No sore throat. Lungs: positive shortness of breath cough mild wheezes and productive sputum. Reports dyspnea with exertion. Cardiovascular: No chest pain, no lower extremity edema. No palpitations. No paroxysmal nocturnal dyspnea. No orthopnea. No lightheadedness or dizziness. No syncopal episodes. Abdominal: positive abdominal pain. No nausea, vomiting. No diarrhea. No constipation. No bloody or tarry stools.. No loss of appetite. Genitourinary: No dysuria, increased frequency, urgency. No urinary retention. Musculoskeletal: No myalgias. No muscle weakness, no gait dysfunction, no frequent falls. No back pain. No neck pain. Integumentary: No wounds, no lesions. No rash or pruritus. No unusual bruising. No change in hair or nails. Neurologic: No aphasia. No facial droop. No change in mentation. No head injury. No headache. No paralysis. No paresthesia. Psychiatric: No depression. No anxiety. No mood swings. Endocrine: No abnormal blood sugars. No weight change. No excessive sweating or thirst. No cold intolerance. PHYSICAL EXAMINATION Gen: This is well-developed 61-year-old male does not look in any respiratory distress while he is resting in bed with still have oxygen on 2 L to keep his pulse ox above 90 percentile. HEENT: Head is atraumatic, normocephalic. Pupils equal, round. Sclerae is anicteric. NECK: Supple. No JVD. No lymphadenopathy. No thyromegaly. LUNGS: decrease + bilaterally with fine rhonchi mild crackles in the bases specially the right side with mild expiratory wheezes. HEART: Regular rate and rhythm. No murmur. ABDOMEN: Soft. Bowel sounds are present. No masses. No tenderness. EXTREMITIES: No pedal edema. No calf tenderness. NEUROLOGICAL: Patient is awake, alert and oriented x3. Cranial nerves 2 through 12 are grossly intact. ASSESSMENT AND PLAN 1. Sepsis secondary to severe COVID-19 pneumonitis: Patient be admitted to the hospital, continue Ventolin inhaler, vitamin supplements, dexamethasone 6 mg IV daily, Lovenox 80 every 12 hours mg subcu Pulmonary consult appreciated. Continue oxygen therapy at AIRVO 60 L. Augmentin added. 2 severe hypoxia: Most likely from COVID-19, will watch for any secondary infection as well continue O2 to keep his pulse ox 90 percentile and still use updraft treatment. Bilateral venous Dopplers negative for DVT. Repeat chest CT today. Lasix 40 mg IV daily BARICINIB STARTED 08/24/21. On dexamethasone IV 6 twice a day 3 history of asthma: Has been on albuterol inhaler along with dexamethasone. 4. Small right pulmonary emboli, secondary to Covid 4 hypertension: Has been on losartan 50 mg a day we'll resume medication. 6 DVT venous thrombosis patient most likely has coagulopathy was start on L ovenox 40 mg daily. 7 GI prophylaxis: Patient be on Pepcid 20 mg a day along with Zofran on as need ed basis. 8 CODE STATUS: Full code. 9. COVID-19 testing waPrognosis guardeds positive Objective - Vital Signs Vital signs: Vital Signs Temp 97.9 F 08/24/21 18:08 Pulse 91 08/24/21 18:08 Resp 21 08/24/21 18:08 BP 136/69 08/24/21 18:08 Pulse Ox 95 08/24/21 18:08 Intake & Output 08/23/21 08/24/21 08/24/21 18:59 06:59 18:59 Intake Total 600 Output Total 1280 200 850 Balance -1280 400 -850 Weight 93.7 kg 93.7 kg Intake: Oral 600 Output: Urine 1280 200 850 Other: Voiding Method Bedside Commode Bedside Commode Bedside Commode Urinal Urinal Urinal # Voids 1 4 1 # Bowel Movements 1 - Labs CBC & Chem 7: 08/23/21 15:05 08/23/21 15:05 Labs: Abnormal Lab Results - Last 24 Hours (Table) 08/23/21 Range/Units 15:05 Procalcitonin 0.16 H (0.02-0.09) ng/mL Microbiology - Last 24 Hours (Table) 08/23/21 15:05 Blood Culture - Preliminary Blood No Growth after 24 hours 08/23/21 15:20 Blood Culture - Preliminary Blood No Growth after 24 hours
[2021-08-24] MEDS: LOSARTAN 50 MG TAB PO SCH (20:39)
[2021-08-24] MEDS: ARTIFICIAL TEARS OINTMENT 3.5 GM TUBE BOTH EYES PRN (20:42)
[2021-08-24] MEDS: OXYMETAZOLINE 0.05% NASL SPRAY 1 SPRAY BOTTLE NASAL PRN (22:26)
[2021-08-25] MEDS: ALPRAZolam 0.25 MG TAB PO PRN ×3 (04:12→23:38)
[2021-08-25] MEDS: MAG HYDROX/AL HYDROX/SIMETH 30 ML CUP PO PRN (05:14)
[2021-08-25 07:34] LABS: ALT 108 U/L (4-49); AST 42 U/L (17-59); African American GFR (CKD) >90 (>60 ml/min/1.73 sqM); Albumin 3.2 g/dL (3.5-5.0); Albumin/Globulin Ratio 1.1; Alkaline Phosphatase 56 U/L (38-126); Anion Gap 6 mmol/L; Blood Urea Nitrogen 16 mg/dL (9-20); C Reactive Protein 4.9 mg/dL (<1.0); Calcium 8.8 mg/dL (8.4-10.2); Carbon Dioxide 38 mmol/L (22-30); Chloride 97 mmol/L (98-107); Glucose 99 mg/dL (74-99); LDH 1342 U/L (313-618); Non-African American GFR(CKD) >90 (>60 ml/min/1.73 sqM); Potassium 4.9 mmol/L (3.5-5.1); Sodium 141 mmol/L (137-145); Total Bilirubin 0.7 mg/dL (0.2-1.3); Total Protein 6.2 g/dL (6.3-8.2)
--- NOTE | 2021-08-25 07:34 | XR ---
EXAMINATION TYPE: XR chest 1V portable DATE OF EXAM: 08/25/2021 CLINICAL HISTORY: Difficulty breathing and covid progress study. TECHNIQUE: Single AP portable upright view of the chest is obtained. COMPARISON: Chest x-ray from one day earlier. CTA chest 2 days ago. FINDINGS: Persistent bilateral multifocal and confluent opacities greater in the right lung. Cardiac silhouettes size is stable and upper limits of normal. Osseous structures are intact. IMPRESSION: Persistent right greater than left bilateral multifocal and confluent opacities consisten t with known covid-19 infarction are redemonstrated. No significant change from one day earlier.
[2021-08-25 07:45] LABS: Basophils % (A) 0 %; Eosinophils % (A) 0 %; HCT 49.1 % (39.0-53.0); HGB 15.3 gm/dL (13.0-17.5); Hypochromasia Moderate; Lymphocytes # (A) 0.9 k/uL (1.0-4.8); Lymphocytes % (A) 7 %; MCHC 31.1 g/dL (31.0-37.0); MCV 99.9 fL (80.0-100.0); Mean Platelet Volume 10.9; Monocytes # (A) 0.7 k/uL (0-1.0); Monocytes % (A) 5 %; Neutrophils # (A) 11.5 k/uL (1.3-7.7); Neutrophils % (A) 87 %; Platelet Count 265 k/uL (150-450); RBC 4.92 m/uL (4.30-5.90); RDW 13.6 % (11.5-15.5); WBC 13.3 k/uL (3.8-10.6)
[2021-08-25] MEDS: ASPIRIN 81 MG PO SCH (08:58)
[2021-08-25] MEDS: ASCORBIC ACID 500 MG TAB PO SCH (08:58)
[2021-08-25] MEDS: ZINC SULFATE 220 MG CAP PO SCH (08:58)
[2021-08-25] MEDS: CHOLECALCIFEROL 125 MCG (5000 IU) TABLET PO SCH (08:59)
[2021-08-25] MEDS: ENOXAPARIN 100 MG/ML SYRINGE SQ SCH ×2 (08:59→20:30)
[2021-08-25] MEDS: DEXAMETHASONE SOD PHOSPHATE 10 MG/ML 1 ML VIAL IVP SCH ×2 (09:00→20:30)
[2021-08-25] MEDS: FUROSEMIDE 10 MG/ML 4 ML VIAL IV SCH (09:00)
[2021-08-25] MEDS: FAMOTIDINE 20 MG TAB PO SCH (09:00)
[2021-08-25] MEDS: ALBUTEROL HFA INHALER INHALATION SCH ×4 (09:32→19:56)
[2021-08-25] MEDS: BENZOCAINE 20% HEMORRHOIDAL OINT 28GM RECTAL SCH ×2 (14:20→20:29)
[2021-08-25] MEDS: PANTOPRAZOLE 40 MG TABLET PO SCH (14:20)
[2021-08-25] MEDS: BARICITINIB 2 MG TABLET PO SCH (14:20)
--- NOTE | 2021-08-25 15:39 | P.PN ---
Subjective Progress Note Date: 08/25/21 Principal diagnosis: Dyspnea, cough This a very pleasant 61-year-old male patient with a history of hypertension, nephrolithiasis requiring stent placement to the right ureter who follows with Dr. Hooper as his primary care provider. He presented here to the emergency room yesterday with complaints of increasing shortness breath, cough congestion fever since 08/10/2021. He tested positive on 08/11/2021 with COVID-19. He is not vaccinated. He is currently seen in the emergency department. Currently resting fairly comfortably in bed. He is on 2 L nasal cannula to maintain O2 saturation is a low 90s. Chest x-ray does reveal evidence of bilateral multifocal opacities CT angiogram was suboptimal but no large central or definite lobar branch pulmonary emboli. Again bilateral patchy groundglass opacities consistent with COVID-19 pneumonia. Right greater than left. White count 10.0. Hemoglobin 15.7. Platelets 135. Lymphocytes 0.6. D-dimer 0.69. Sodium 133. Potassium 4.1. Creatinine 1.1. AST 129. ALT 59. LDH 1545. C- reactive protein 23.9. Pro-calcitonin 0.52. He's been initiated on Decadron, Lovenox, vitamin supplements. Outside the window for Remdesivir. Not meeting criteria for Baricitinib. On 08-19-2021 patient seen in follow-up on medical surgical floor. He is awake and alert, he sitting up in the recliner, in no acute distress, he states his breathing and coughing are significantly improved, he is currently on 3 L of oxygen pulse ox is 90-94%, lung sounds are positive for diffuse crackles throughout, cough is nonproductive, no complete chest discomfort. His been afebrile overnight, vital signs have been stable, tolerating oral intake, no nausea vomiting diarrhea, currently continues on Decadron 6 blood gram daily, he is on Lovenox 40 mg daily, COVID-19 multivitamins, today's labs have been reviewed, sodium is improved and is up to 142, potassium is 5.4, chloride is 104, B1 is 20, creatinine 0.85, AST is 107, slightly improved, and ALT is 72, slightly worsened, alkaline phosphatase is 45, within normal limits, his LDH has slightly increased, and is up to 1828, CRP is improved and is down to 17.6. His pro-calcitonin level was 0.52, borderline. On 08/20/2021 patient seen in follow-up on medical surgical floor, he states his cough is improved, although still persist, in he is now bringing up some brownish colored phlegm. He remains on 3 L of oxygen his pulse ox is 89-92%. Lung sounds are diminished at the bases, with bibasilar crackles, his pro- calcitonin on admission was borderline elevated, although repeat pro-calcitonin today came back improved at 0.27 down from 0.52 on admission, his inflammatory markers were reviewed, his LDH has increased and is up to 2105, and CRP is 15, d-dimer is negative at 0.54, patient is afebrile, blood pressure stable, he is asking if he is currently given any antibiotics. He remains on dexamethasone 6 mg daily, remains on multivitamins, and prophylactic dose Lovenox. On 08/21/2021 patient seen in follow-up on medical surgical floor, his oxygen requirements have slightly increased, he is currently on 5 L of oxygen compared to 3 L and yesterday's exam, his pulse ox is 89-91%, he is dyspneic with exertion but appears to be no acute distress, lung sounds reveal diffuse coarse crackles bilaterally, he still coughing up some brownish colored phlegm, yesterday we started him on oral Augmentin for empiric antibiotic coverage, he continues on Decadron 6 mg daily, he is on prophylactic dose Lovenox and inhaled bronchodilators. He's had no acute events overnight, no complaints of hemoptysis, no combines of chest discomfort. His chest x-ray today shows cardiomegaly and right greater than left COVID-19 infiltrates. Today's labs have been reviewed, his inflammatory markers have trended up and LDH is up to 2163, and CRP 6.7 improved since admission, pro-calcitonin level was 0.27, his d-dimer has increased to 16.1, his CT angios of the chest was suboptimal contra st bolus and breathing motion artifact however there was no evidence of a large central or definite lobar branch pulmonary embolism. On 08/23/2021 patient seen in follow-up on medical surgical floor. Patient is currently up to 11 L of oxygen, his pulse ox is 89-92%, and as such his oxygenation has progressively worsened over. Of last 48 hours, patient is afebrile, hemodynamically stable, he states she still coughing up some brownish colored phlegm, another sputum culture was sent today, patient has been on Augmentin for empiric antibiotic coverage, he continues on Decadron 6 mg daily, and she also received a dose of IV Lasix today, yesterday CT chest without contrast was completed showing worsening right greater than left bilateral multifocal ground glass opacities and organizing consolidation consistent with COVID-19 infection progression and or developing ARDS. His lower extremity Dopplers were negative for DVT. he has not had any labs in the last couple of days. On the 2021 patient seen in follow-up on medical surgical floor. He is awake and alert, he is on irritable and 55 L and FiO2 of 79%, and his pulse ox is 91-96%, mildly dyspneic with conversation and exertion, but overall seems to be in no acute distress, he sitting up in the recliner, hemodynamically has been stable, his been afebrile, today's chest x-ray has been reviewed during persistent right greater than left bilateral multifocal and confluent opacities without significant change from his most recent studies, CTA chest was obtained showing extensive pulmonary infiltrates that were noted to be worsening and his last exam, this was consistent with multifocal pneumonia, and right lower lobe pulmonary embolism involving the lateral basal segment, and patient's Lovenox was adjusted to therapeutic dose, and is currently at 90 mg twice daily. Patient was previously on Augmentin, however his pro-calcitonin level is negative, his last 2 pro-calcitonin levels were 0.7, and 0.16, improving, sputum culture has shown no growth, his white count is 14.4, hemoglobin is 15.9, today's d-dimer is greater than 34, electrolytes showed sodium of 1:30, potassium is 4.7, chloride is 96, CO2 35, B1 is 21 creatinine 1.01. His inflammatory markers were trending up on yesterday's labs, and LDH was down to 2303, and CRP was up to 23.4. On 08/25/2021 patient seen in follow-up on medical surgical floor. Patient is currently on Airvo at 55% FiO2 was dropped down to 70%, his pulse ox between 94- 95%, still requiring high flow oxygen but appears to be more comfortable, less dyspneic, less diaphoretic compared to yesterday's exam. No fever or chills, vital signs have been stable. No complaints of worsening dyspnea, no chest discomfort, occasional cough, no phlegm production. Tolerating oral intake, no nausea vomiting diarrhea, no abdominal pain. Today's labs have been reviewed, his white blood count is slightly improved and is down to 13.3, hemoglobin is stable at 14.3, d-dimer is improving and is down to 9.34, electrolytes and renal profile are unremarkable. Inflammatory markers are improving, and teaches down to 1342, and CRP is down to 4.9, potassium level is negative at 0.16, Augmentin was discontinued, patient was started on Baricitinib yesterday on 08/24/2021 Objective - Vital Signs Vital signs: Vital Signs Temp 97.6 F 08/25/21 14:00 Pulse 101 H 08/25/21 14:00 Resp 19 08/25/21 14:00 BP 126/75 08/25/21 14:00 Pulse Ox 95 08/25/21 14:00 Intake & Output 08/24/21 08/25/21 08/25/21 18:59 06:59 18:59 Intake Total 750 Output Total 1450 350 Balance -1450 400 Weight 93.7 kg 94.5 kg Intake: Oral 750 Output: Urine 1450 350 Other: Voiding Method Bedside Commode Bedside Commode Urinal Urinal # Voids 1 1 # Bowel Movements 1 - Exam GENERAL EXAM: Alert, very pleasant, 61-year-old white male on Airvo currently at 55 L and FiO2 of 70% with a pulse ox of 91-95% HEAD: Normocephalic/atraumatic. EYES: Normal reaction of pupils, equal size. Conjunctiva pink, sclera white. NOSE: Clear with pink turbinates. THROAT: No erythema or exudates. NECK: No masses, no JVD, no thyroid enlargement, no adenopathy. CHEST: No chest wall deformity. Symmetrical expansion. LUNGS: Equal air entry with bilateral crackles CVS: Regular rate and rhythm, normal S1 and S2, no gallops, no murmurs, no rubs ABDOMEN: Soft, nontender. No hepatosplenomegaly, normal bowel sounds, no guarding or rigidity. EXTREMITIES: No clubbing, no edema, no cyanosis, 2+ pulses and upper and lower extremities. MUSCULOSKELETAL: Muscle strength and tone normal. SPINE: No scoliosis or deformity SKIN: No rashes CENTRAL NERVOUS SYSTEM: Alert and oriented -3. No focal deficits, tone is normal in all 4 extremities. PSYCHIATRIC: Alert and oriented -3. Appropriate affect. Intact judgment and insight. - Labs CBC & Chem 7: 08/25/21 06:19 08/25/21 06:19 Labs: Abnormal Lab Results - Last 24 Hours (Table) 08/25/21 08/25/21 08/25/21 Range/Units 06:19 06:19 06:19 WBC 13.3 H (3.8-10.6) k/uL Neutrophils # 11.5 H (1.3-7.7) k/uL Lymphocytes # 0.9 L (1.0-4.8) k/uL D-Dimer 9.34 H (<0.60) mg/L FEU Chloride 97 L (98-107) mmol/L Carbon Dioxide 38 H (22-30) mmol/L ALT 108 H (4-49) U/L Lactate Dehydrogenase 1342 H (313-618) U/L C-Reactive Protein 4.9 H (<1.0) mg/dL Total Protein 6.2 L (6.3-8.2) g/dL Albumin 3.2 L (3.5-5.0) g/dL Microbiology - Last 24 Hours (Table) 08/23/21 15:05 Blood Culture - Preliminary Blood No Growth after 24 hours 08/23/21 15:20 Blood Culture - Preliminary Blood No Growth after 24 hours Assessment and Plan Plan: Assessment: #1. Acute hypoxic respiratory failure secondary to acute COVID-19 pneumonia, onset of symptoms of 08/10/2021, patient tested positive on 08/11/2021, patient was outside the window for Remdesivir, not vaccinated, and today on 08/21/2021 patient's oxygenation seems to have worsened, and patient is on 11 L of oxygen, with increasing Fio2 needs, will be placed on Airvo, patient was treated with empiric Augmentin for possibility of superinfection however his calcitonin level was negative 2, Augmentin will be discontinued and patient started on Baricitinib on 08/24/2021. On 08/25/2021 patient remains on Airvo at 55 L and FiO2 of 70%, breathing more comfortably, still requiring high flow oxygen #2. Acute right lower lobe pulmonary embolism, diagnosed per CTA chest on 08/23/2021, Lovenox dose was adjusted and increased to 90 mg twice daily #3. Elevated inflammatory markers related to the above, with a trend up in the LDH levels #4. Mild transaminitis secondary to the above, improved #5. Increased d-dimer of 16.1, CT angios of the chest was negative for definite central or lobar branch pulmonary embolism, and no evidence of DVT on lower extremity Dopplers #6. Hypertension #7. History of nephrolithiasis with previous stent placement in the right ureter #8. History of chronic bronchial asthma, unspecified #9. Previous history of DVT in the left leg #10. Lifetime nonsmoker Plan: Patient continues on Airvo currently a 55 L and FiO2 of 70% Stenotic on high flow oxygen but breathing more comfortably No fever, vital signs have been stable Continue current medical treatment Patient was started on Baricitinib yesterday on 08/24/2021 Today's labs reviewed, d-dimer is improving, inflammatory markers are improving Clinically patient feels and looks better Hold diuretics Continue multivitamins We'll continue to follow his clinical course I performed a history & physical examination of the patient and discussed their management with my nurse practitioner, Neyda Frances. I reviewed the nurse practitioner's note and agree with the documented findings and plan of care. Lung sounds are positive for diffuse crackles throughout the lung smith. The findings and the impression was discussed with the patient. I attest to the documentation by the nurse practitioner. Time with Patient: Less than 30
--- NOTE | 2021-08-25 16:08 | P.PN ---
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 Patient today become extremely sick developed to have worsening fever or chills abdominal pain with nausea without vomiting worsening shortness of breath with cough productive phlegm and finally become extremely hypoxic with minimal exertion. Ended up coming to the emergency department at [facility] where was seen and evaluated his oxygen level was in the mid 80. Patient was started on oxygen, updraft ayesha tment,Decadron along with multivitamins. Patient will be admitted to the hospital will be seen pulmonary watch his marker watch for any worsening symptoms with his high risk of clotting and coagulopathy patient be started on Lovenox as well. 08/18: Patient is seen today in the emergency center [facility] Pulse ox is 97% on 2 L nasal cannula. He has been afebrile, heart rate 80, blood pressure 118/78. Patient has been seen by pulmonary medicine and is outside the window for Remdesivir and does not meet criteria for Baricitinib. Patient is on Ventolin inhaler, vitamin supplements, dexamethasone 6 mg IV daily, Lovenox 40 mg subcu daily. 08/19: [facility]. He is on 3 L nasal cannula with pulse ox of 94%. His been afebrile, heart rate 87, blood pressure 135/85. She is currently on Ventolin inhaler, vitamin supplements, Lovenox, Decadron 6 mg IV push daily. He is followed by pulmonary medicine. Repeat blood work reveals potassium of 5.4, creatinine 0.85. AST 107, ALT 72, alkaline phosphatase 45. LDH 1828, C-reactive protein 17.6. 08/20: Patient states that he slept well last night he states he is still having muscle aches and is complaining of constipation. Oxygen saturation is 89-94% on 3-4 L. He has been afebrile, heart rate 107, blood pressure 157/89. LDH 2105. C-reactive protein 15. We had anticipated discharge home today but due to patient's increased oxygen need, patient's discharge will be held. Possible discharge tomorrow. 08/21: Patient is on oxygen now increased to 6 L pulse ox of 82%. We'll ask for humidification and extension. Patient states that he is using incentive spirometry. Repeat chest x-ray reveals similar borderline cardiomegaly and right greater than left Covid infiltrates. Repeat blood work reveals d-dimer 16.11. LDH 2163, C-reactive protein 6.7. Bilateral lower extremity ultrasound negative for DVT. Augmentin was added yesterday by pulmonary medicine. 08/22: Patient is found sitting up in a chair. He is in moderate distress. At this time his prognosis is guarded. His oxygen has been increased to 6 L. His pulse ox around the 5-90%. Patient is anxious and feels tired. Patient is not sleeping well due to not being able to be comfortable either in chair or lying in bed. Patient is complaining of tightness to his bilateral calfs. Bilateral venous Dopplers were negative for DVT. He remains on Lovenox. Lasix 40 mg IV will be added. Patient continues to use his incentive spirometer. His repeat chest x-ray is similar to previous which shows borderline cardiomegaly and right greater than left Covid infiltrates. We will schedule patient for a CT today. 08/23: Patient is found sitting up in a chair. He is in moderate distress. Patient states that he is feeling BETTER today compared to yesterday. Patient diuresed with a significant amount of output. Chest CAT scan shows Worsening right greater than left bilateral multifocal groundglass opacities and or ganizing consolidations consistent with COVID-19 infection progression and/or developing ARDS. We will continue with Lasix 40 mg daily. Patient to use incentive spirometer. Redness is guarded. 08/24: Patient is seen for follow-up, currently on airvo, 60 L nasal cannula, patient is to receive first dose of BARICINIB today as recommended by pulmonary, patient is on Lovenox high-dose, for a small right pulmonary emboli, involving the right basal segment. Patient has small amount of uncontrolled epistaxis at this time, can have when necessary AFRIN vitals are stable, systolic 122-131, RR in the 20s, double basic count 14.4 CO2 of 35, ALT AST elevated, glucose 104, creatinine 1.1 from a previous of 0.85 C-reactive protein is worse, 23, from a previous of 6.7 LDH of 2300 08/25: Patient is seen today on the [facility] floor, resting in recliner. He denies having any further nosebleeds. He is taking a protein supplement that is brought from home. Patient complaining of hemorrhoids flaring up and appointment ordered. Pulse ox is 91% on AirVO FiO2 75%. Heart rate 89, blood pressure 139/89, afebrile. He is continued on Baricitinib 24 milligrams daily, dexamethasone, Lovenox, vitamin supplements and followed closely by pulmonary medicine. Repeat blood work reveals WBC 13.3, d-dimer 9.34, LDH 1342, C- reactive protein 4.9. REVIEW OF SYSTEMS Constitutional: no fever and chills with night sweats-improved, no weight change, generalized weakness fatigue and tiredness. EENT: No headache. No blurred vision or double vision, no loss of vision. No loss of Hearing, no ringing in the ears, no dizziness. No nasal drainage or congestion. Reports mild epistaxis. No sore throat. Lungs: positive shortness of breath cough mild wheezes and productive sputum. Reports dyspnea with exertion. Cardiovascular: No chest pain, no lower extremity edema. No palpitations. No paroxysmal nocturnal dyspnea. No orthopnea. No lightheadedness or dizziness. No syncopal episodes. Abdominal: positive abdominal pain. No nausea, vomiting. No diarrhea. No constipation. No bloody or tarry stools.. No loss of appetite. Genitourinary: No dysuria, increased frequency, urgency. No urinary retention. Musculoskeletal: No myalgias. No muscle weakness, no gait dysfunction, no frequent falls. No back pain. No neck pain. Integumentary: No wounds, no lesions. No rash or pruritus. No unusual bruising. No change in hair or nails. Neurologic: No aphasia. No facial droop. No change in mentation. No head injury. No headache. No paralysis. No paresthesia. Psychiatric: No depression. No anxiety. No mood swings. Endocrine: No abnormal blood sugars. No weight change. No excessive sweating or thirst. No cold intolerance. PHYSICAL EXAMINATION Gen: This is well-developed 61-year-old male resting in recliner currently on AirVo. HEENT: Head is atraumatic, normocephalic. Pupils equal, round. Sclerae is anicteric. NECK: Supple. No JVD. No lymphadenopathy. No thyromegaly. LUNGS: decrease + bilaterally with fine rhonchi mild crackles in the bases specially the right side with mild expiratory wheezes. HEART: Regular rate and rhythm. No murmur. ABDOMEN: Soft. Bowel sounds are present. No masses. No tenderness. EXTREMITIES: No pedal edema. No calf tenderness. NEUROLOGICAL: Patient is awake, alert and oriented x3. Cranial nerves 2 through 12 are grossly intact. ASSESSMENT AND PLAN 1. Sepsis secondary to severe COVID-19 pneumonitis: Patient be admitted to the hospital, continue Ventolin inhaler, vitamin supplements, dexamethasone 6 mg IV daily, Lovenox 80 every 12 hours mg subcu Pulmonary consult appreciated. Continue oxygen therapy at AIRVO 60 L. Augmentin added. Patient started onBaricitinib 08/24. 2 severe hypoxia: Most likely from COVID-19, will watch for any secondary infection as well continue O2 to keep his pulse ox 90 percentile and still use updraft treatment. Bilateral venous Dopplers negative for DVT. Repeat chest CT today. Lasix 40 mg IV daily BARICINIB STARTED 08/24/21. On dexamethasone IV 6 twice a day 3 history of asthma: Has been on albuterol inhaler along with dexamethasone. 4. Small right pulmonary emboli, secondary to Covid 4 hypertension: Has been on losartan 50 mg a day we'll resume medication. 6 DVT venous thrombosis patient most likely has coagulopathy was start on Lovenox 40 mg daily. 7 GI prophylaxis: Patient be on Pepcid 20 mg a day along with Zofran on as needed basis. 8 CODE STATUS: Full code. Prognosis guarded Impression and plan of care have been directed as dictated by the signing physician. Pema Villagomez nurse practitioner acting as scribe for signing physician. Objective - Vital Signs Vital signs: Vital Signs Temp 98.4 F 08/25/21 06:00 Pulse 89 08/25/21 06:00 Resp 18 08/25/21 06:00 BP 139/86 08/25/21 06:00 Pulse Ox 91 L 08/25/21 09:34 Intake & Output 08/24/21 08/25/21 08/25/21 18:59 06:59 18:59 Intake Total 750 Output Total 1450 350 Balance -1450 400 Weight 93.7 kg 94.5 kg Intake: Oral 750 Output: Urine 1450 350 Other: Voiding Method Bedside Commode Bedside Commode Urinal Urinal # Voids 1 1 # Bowel Movements 1 - Labs CBC & Chem 7: 08/25/21 06:19 08/25/21 06:19 Labs: Abnormal Lab Results - Last 24 Hours (Table) 08/25/21 08/25/21 08/25/21 Range/Units 06:19 06:19 06:19 WBC 13.3 H (3.8-10.6) k/uL Neutrophils # 11.5 H (1.3-7.7) k/uL Lymphocytes # 0.9 L (1.0-4.8) k/uL D-Dimer 9.34 H (<0.60) mg/L FEU Chloride 97 L (98-107) mmol/L Carbon Dioxide 38 H (22-30) mmol/L ALT 108 H (4-49) U/L Lactate Dehydrogenase 1342 H (313-618) U/L C-Reactive Protein 4.9 H (<1.0) mg/dL Total Protein 6.2 L (6.3-8.2) g/dL Albumin 3.2 L (3.5-5.0) g/dL Microbiology - Last 24 Hours (Table) 08/23/21 15:05 Blood Culture - Preliminary Blood No Growth after 24 hours 08/23/21 15:20 Blood Culture - Preliminary Blood No Growth after 24 hours
[2021-08-25] MEDS: ARTIFICIAL TEARS OINTMENT 3.5 GM TUBE BOTH EYES PRN (20:30)
[2021-08-25] MEDS: OXYMETAZOLINE 0.05% NASL SPRAY 1 SPRAY BOTTLE NASAL PRN (20:30)
[2021-08-25] MEDS: LOSARTAN 50 MG TAB PO SCH (20:30)
[2021-08-26 08:11] LABS: ALT 95 U/L (4-49); AST 40 U/L (17-59); African American GFR (CKD) >90 (>60 ml/min/1.73 sqM); Albumin 3.2 g/dL (3.5-5.0); Alkaline Phosphatase 53 U/L (38-126); Anion Gap 5 mmol/L; Blood Urea Nitrogen 23 mg/dL (9-20); Calcium 9.9 mg/dL (8.4-10.2); Carbon Dioxide 37 mmol/L (22-30); Chloride 96 mmol/L (98-107); Globulin 3.1 g/dL; Glucose 103 mg/dL (74-99); Non-African American GFR(CKD) 82 (>60 ml/min/1.73 sqM); Potassium 5.3 mmol/L (3.5-5.1); Sodium 138 mmol/L (137-145); Total Bilirubin 0.8 mg/dL (0.2-1.3); Total Protein 6.3 g/dL (6.3-8.2)
[2021-08-26] MEDS: ENOXAPARIN 100 MG/ML SYRINGE SQ SCH ×2 (08:15→20:18)
[2021-08-26] MEDS: FUROSEMIDE 10 MG/ML 4 ML VIAL IV SCH (08:15)
[2021-08-26] MEDS: ASPIRIN 81 MG PO SCH (08:16)
[2021-08-26] MEDS: ZINC SULFATE 220 MG CAP PO SCH (08:16)
[2021-08-26] MEDS: DEXAMETHASONE SOD PHOSPHATE 10 MG/ML 1 ML VIAL IVP SCH ×2 (08:16→20:17)
[2021-08-26] MEDS: ASCORBIC ACID 500 MG TAB PO SCH (08:16)
[2021-08-26] MEDS: PANTOPRAZOLE 40 MG TABLET PO SCH (08:16)
[2021-08-26] MEDS: CHOLECALCIFEROL 125 MCG (5000 IU) TABLET PO SCH (08:16)
[2021-08-26] MEDS: ALPRAZolam 0.25 MG TAB PO PRN ×3 (08:20→22:55)
[2021-08-26] MEDS: BENZOCAINE 20% HEMORRHOIDAL OINT 28GM RECTAL SCH ×2 (08:28→20:20)
[2021-08-26 08:39] LABS: Basophils % (A) 0 %; Eosinophils % (A) 0 %; HCT 50.8 % (39.0-53.0); HGB 15.5 gm/dL (13.0-17.5); Hypochromasia Marked; Lymphocytes # (A) 1.1 k/uL (1.0-4.8); Lymphocytes % (A) 7 %; MCH 30.5 pg (25.0-35.0); MCHC 30.4 g/dL (31.0-37.0); MCV 100.1 fL (80.0-100.0); Mean Platelet Volume 12.1; Monocytes # (A) 0.7 k/uL (0-1.0); Monocytes % (A) 5 %; Neutrophils # (A) 13.8 k/uL (1.3-7.7); Neutrophils % (A) 87 %; Platelet Count 278 k/uL (150-450); RBC 5.08 m/uL (4.30-5.90); RDW 13.6 % (11.5-15.5); WBC 15.9 k/uL (3.8-10.6)
[2021-08-26] MEDS: ALBUTEROL HFA INHALER INHALATION SCH ×4 (09:06→20:31)
[2021-08-26] MEDS: ARTIFICIAL TEARS OINTMENT 3.5 GM TUBE BOTH EYES PRN (13:54)
[2021-08-26] MEDS: BARICITINIB 2 MG TABLET PO SCH (13:54)
--- NOTE | 2021-08-26 16:09 | P.PN ---
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 Patient today become extremely sick developed to have worsening fever or chills abdominal pain with nausea without vomiting worsening shortness of breath with cough productive phlegm and finally become extremely hypoxic with minimal exertion. Ended up coming to the emergency department at [facility] where was seen and evaluated his oxygen level was in the mid 80. Patient was started on oxygen, updraft ayesha tment,Decadron along with multivitamins. Patient will be admitted to the hospital will be seen pulmonary watch his marker watch for any worsening symptoms with his high risk of clotting and coagulopathy patient be started on Lovenox as well. 08/18: Patient is seen today in [facility] Pulse ox is 97% on 2 L nasal cannula. He has been afebrile, heart rate 80, blood pressure 118/78. Patient has been seen by pulmonary medicine and is outside the window for Remdesivir and does not meet criteria for Baricitinib. Patient is on Ventolin inhaler, vitamin supplements, dexamethasone 6 mg IV daily, Lovenox 40 mg subcu daily. 08/19: [facility]. He is on 3 L nasal cannula with pulse ox of 94%. His been afebrile, heart rate 87, blood pressure 135/85. She is currently on Ventolin inhaler, vitamin supplements, Lovenox, Decadron 6 mg IV push daily. He is followed by pulmonary medicine. Repeat blood work reveals potassium of 5.4, creatinine 0.85. AST 107, ALT 72, alkaline phosphatase 45. LDH 1828, C-reactive protein 17.6. 08/20: Patient states that he slept well last night he states he is still having muscle aches and is complaining of constipation. Oxygen saturation is 89-94% on 3-4 L. He has been afebrile, heart rate 107, blood pressure 157/89. LDH 2105. C-reactive protein 15. We had anticipated discharge home today but due to patient's increased oxygen need, patient's discharge will be held. Possible discharge tomorrow. 08/21: Patient is on oxygen now increased to 6 L pulse ox of 82%. We'll ask for humidification and extension. Patient states that he is using incentive spirometry. Repeat chest x-ray reveals similar borderline cardiomegaly and right greater than left Covid infiltrates. Repeat blood work reveals d-dimer 16.11. LDH 2163, C-reactive protein 6.7. Bilateral lower extremity ultrasound negative for DVT. Augmentin was added yesterday by pulmonary medicine. 08/22: Patient is found sitting up in a chair. He is in moderate distress. At this time his prognosis is guarded. His oxygen has been increased to 6 L. His pulse ox around the 5-90%. Patient is anxious and feels tired. Patient is not sleeping well due to not being able to be comfortable either in chair or lying in bed. Patient is complaining of tightness to his bilateral calfs. Bilateral venous Dopplers were negative for DVT. He remains on Lovenox. Lasix 40 mg IV will be added. Patient continues to use his incentive spirometer. His repeat chest x-ray is similar to previous which shows borderline cardiomegaly and right greater than left Covid infiltrates. We will schedule patient for a CT today. 08/23: Patient is found sitting up in a chair. He is in moderate distress. Patient states that he is feeling BETTER today compared to yesterday. Patient diuresed with a significant amount of output. Chest CAT scan shows Worsening right greater than left bilateral multifocal groundglass opacities and or ganizing consolidations consistent with COVID-19 infection progression and/or developing ARDS. We will continue with Lasix 40 mg daily. Patient to use incentive spirometer. Redness is guarded. 08/24: Patient is seen for follow-up, currently on airvo, 60 L nasal cannula, patient is to receive first dose of BARICINIB today as recommended by pulmonary, patient is on Lovenox high-dose, for a small right pulmonary emboli, involving the right basal segment. Patient has small amount of uncontrolled epistaxis at this time, can have when necessary AFRIN vitals are stable, systolic 122-131, RR in the 20s, double basic count 14.4 CO2 of 35, ALT AST elevated, glucose 104, creatinine 1.1 from a previous of 0.85 C-reactive protein is worse, 23, from a previous of 6.7 LDH of 2300 08/25: Patient is seen today on the [facility] floor, resting in recliner. He denies having any further nosebleeds. He is taking a protein supplement that is brought from home. Patient complaining of hemorrhoids flaring up and appointment ordered. Pulse ox is 91% on AirVO FiO2 75%. Heart rate 89, blood pressure 139/89, afebrile. He is continued on Baricitinib 24 milligrams daily, dexamethasone, Lovenox, vitamin supplements and followed closely by pulmonary medicine. Repeat blood work reveals WBC 13.3, d-dimer 9.34, LDH 1342, C- reactive protein 4.9. 08/26 patient feels that he is breathing a little bit better today from yesterday. He complains of a tickle in his throat and a nonproductive cough. He does have a little lower extremity edema. He is currently on AirVo at 55 L/m, FiO2 57%, with pulse ox is 96%, afebrile, heart rate 91, blood pressure 117/67. REVIEW OF SYSTEMS Constitutional: no fever and chills with night sweats-improved, no weight change, generalized weakness fatigue and tiredness. EENT: No headache. No blurred vision or double vision, no loss of vision. No loss of Hearing, no ringing in the ears, no dizziness. No nasal drainage or congestion. Reports mild epistaxis. No sore throat. Lungs: positive shortness of breath cough mild wheezes and productive sputum. Reports dyspnea with exertion. Cardiovascular: No chest pain, no lower extremity edema. No palpitations. No paroxysmal nocturnal dyspnea. No orthopnea. No lightheadedness or dizziness. No syncopal episodes. Abdominal: Denies abdominal pain. No nausea, vomiting. No diarrhea. No c onstipation. No bloody or tarry stools.. No loss of appetite. Genitourinary: No dysuria, increased frequency, urgency. No urinary retention. Musculoskeletal: No myalgias. No muscle weakness, no gait dysfunction, no frequent falls. No back pain. No neck pain. Integumentary: No wounds, no lesions. No rash or pruritus. No unusual bruising. No change in hair or nails. Neurologic: No aphasia. No facial droop. No change in mentation. No head injury. No headache. No paralysis. No paresthesia. Psychiatric: No depression. No anxiety. No mood swings. Endocrine: No abnormal blood sugars. No weight change. No excessive sweating or thirst. No cold intolerance. PHYSICAL EXAMINATION Gen: This is well-developed 61-year-old male resting in recliner currently on rVo. HEENT: Head is atraumatic, normocephalic. Pupils equal, round. Sclerae is anicteric. NECK: Supple. No JVD. No lymphadenopathy. No thyromegaly. LUNGS: decrease + bilaterally with fine rhonchi mild crackles in the bases specially the right side with mild expiratory wheezes. HEART: Regular rate and rhythm. No murmur. ABDOMEN: Soft. Bowel sounds are present. No masses. No tenderness. EXTREMITIES: Trace bilateral pedal edema. No calf tenderness. Dorsalis pedis palpable bilaterally. NEUROLOGICAL: Patient is awake, alert and oriented x3. Cranial nerves 2 through 12 are grossly intact. ASSESSMENT AND PLAN 1. Sepsis secondary to severe COVID-19 pneumonitis: Patient be admitted to the hospital, continue Ventolin inhaler, vitamin supplements, dexamethasone 6 mg IV daily, Lovenox 80 every 12 hours mg subcu Pulmonary consult appreciated. Continue oxygen therapy at AIRVO 60 L. Augmentin added. Patient started onBaricitinib 08/24. 2 severe hypoxia: Most likely from COVID-19, will watch for any secondary infection as well continue O2 to keep his pulse ox 90 percentile and still use updraft treatment. Bilateral venous Dopplers negative for DVT. Repeat chest CT today. Lasix 40 mg IV daily BARICINIB STARTED 08/24/21. On dexamethasone IV 6 twice a day 3 history of asthma, mild intermittent: Has been on albuterol inhaler along with dexamethasone. 4. Small right pulmonary emboli, secondary to Covid 4 hypertension: Has been on losartan 50 mg a day we'll resume medication. 6 DVT venous thrombosis patient most likely has coagulopathy was start on Lovenox 40 mg daily. 7 GI prophylaxis: Patient be on Pepcid 20 mg a day along with Zofran on as needed basis. 8 CODE STATUS: Full code. Prognosis guarded Impression and plan of care have been directed as dictated by the signing physician. Pema Villagomez nurse practitioner acting as scribe for signing physician. Objective - Vital Signs Vital signs: Vital Signs Temp 97.5 F L 08/26/21 09:05 Pulse 110 H 08/26/21 09:05 Resp 20 08/26/21 09:05 BP 120/68 08/26/21 09:05 Pulse Ox 92 L 08/26/21 09:05 Intake & Output 08/25/21 08/26/21 08/26/21 18:59 06:59 18:59 Intake Total 500 Output Total 650 675 Balance -650 500 -675 Weight 94.2 kg Intake: Oral 500 Output: Urine 650 675 Other: Voiding Method Bedside Commode Urinal # Voids 2 # Bowel Movements 1 1 - Labs CBC & Chem 7: 08/26/21 06:20 08/26/21 06:20 Labs: Abnormal Lab Results - Last 24 Hours (Table) 08/26/21 08/26/21 Range/Units 06:20 06:20 WBC 15.9 H (3.8-10.6) k/uL MCV 100.1 H (80.0-100.0) fL MCHC 30.4 L (31.0-37.0) g/dL Neutrophils # 13.8 H (1.3-7.7) k/uL Potassium 5.3 H (3.5-5.1) mmol/L Chloride 96 L (98-107) mmol/L Carbon Dioxide 37 H (22-30) mmol/L BUN 23 H (9-20) mg/dL Glucose 103 H (74-99) mg/dL ALT 95 H (4-49) U/L Albumin 3.2 L (3.5-5.0) g/dL Microbiology - Last 24 Hours (Table) 08/23/21 15:05 Blood Culture - Preliminary Blood No Growth after 48 hours 08/23/21 15:20 Blood Culture - Preliminary Blood No Growth after 48 hours
--- NOTE | 2021-08-26 17:37 | P.PN ---
Subjective Progress Note Date: 08/26/21 Principal diagnosis: Dyspnea, cough This a very pleasant 61-year-old male patient with a history of hypertension, nephrolithiasis requiring stent placement to the right ureter who follows with Dr. Hooper as his primary care provider. He presented here to the emergency room yesterday with complaints of increasing shortness breath, cough congestion fever since 08/10/2021. He tested positive on 08/11/2021 with COVID-19. He is not vaccinated. He is currently seen in the emergency department. Currently resting fairly comfortably in bed. He is on 2 L nasal cannula to maintain O2 saturation is a low 90s. Chest x-ray does reveal evidence of bilateral multifocal opacities CT angiogram was suboptimal but no large central or definite lobar branch pulmonary emboli. Again bilateral patchy groundglass opacities consistent with COVID-19 pneumonia. Right greater than left. White count 10.0. Hemoglobin 15.7. Platelets 135. Lymphocytes 0.6. D-dimer 0.69. Sodium 133. Potassium 4.1. Creatinine 1.1. AST 129. ALT 59. LDH 1545. C- reactive protein 23.9. Pro-calcitonin 0.52. He's been initiated on Decadron, Lovenox, vitamin supplements. Outside the window for Remdesivir. Not meeting criteria for Baricitinib. On 08-19-2021 patient seen in follow-up on medical surgical floor. He is awake and alert, he sitting up in the recliner, in no acute distress, he states his breathing and coughing are significantly improved, he is currently on 3 L of oxygen pulse ox is 90-94%, lung sounds are positive for diffuse crackles throughout, cough is nonproductive, no complete chest discomfort. His been afebrile overnight, vital signs have been stable, tolerating oral intake, no nausea vomiting diarrhea, currently continues on Decadron 6 blood gram daily, he is on Lovenox 40 mg daily, COVID-19 multivitamins, today's labs have been reviewed, sodium is improved and is up to 142, potassium is 5.4, chloride is 104, B1 is 20, creatinine 0.85, AST is 107, slightly improved, and ALT is 72, slightly worsened, alkaline phosphatase is 45, within normal limits, his LDH has slightly increased, and is up to 1828, CRP is improved and is down to 17.6. His pro-calcitonin level was 0.52, borderline. On 08/20/2021 patient seen in follow-up on medical surgical floor, he states his cough is improved, although still persist, in he is now bringing up some brownish colored phlegm. He remains on 3 L of oxygen his pulse ox is 89-92%. Lung sounds are diminished at the bases, with bibasilar crackles, his pro- calcitonin on admission was borderline elevated, although repeat pro-calcitonin today came back improved at 0.27 down from 0.52 on admission, his inflammatory markers were reviewed, his LDH has increased and is up to 2105, and CRP is 15, d-dimer is negative at 0.54, patient is afebrile, blood pressure stable, he is asking if he is currently given any antibiotics. He remains on dexamethasone 6 mg daily, remains on multivitamins, and prophylactic dose Lovenox. On 08/21/2021 patient seen in follow-up on medical surgical floor, his oxygen requirements have slightly increased, he is currently on 5 L of oxygen compared to 3 L and yesterday's exam, his pulse ox is 89-91%, he is dyspneic with exertion but appears to be no acute distress, lung sounds reveal diffuse coarse crackles bilaterally, he still coughing up some brownish colored phlegm, yesterday we started him on oral Augmentin for empiric antibiotic coverage, he continues on Decadron 6 mg daily, he is on prophylactic dose Lovenox and inhaled bronchodilators. He's had no acute events overnight, no complaints of hemoptysis, no combines of chest discomfort. His chest x-ray today shows cardiomegaly and right greater than left COVID-19 infiltrates. Today's labs have been reviewed, his inflammatory markers have trended up and LDH is up to 2163, and CRP 6.7 improved since admission, pro-calcitonin level was 0.27, his d-dimer has increased to 16.1, his CT angios of the chest was suboptimal contra st bolus and breathing motion artifact however there was no evidence of a large central or definite lobar branch pulmonary embolism. On 08/23/2021 patient seen in follow-up on medical surgical floor. Patient is currently up to 11 L of oxygen, his pulse ox is 89-92%, and as such his oxygenation has progressively worsened over. Of last 48 hours, patient is afebrile, hemodynamically stable, he states she still coughing up some brownish colored phlegm, another sputum culture was sent today, patient has been on Augmentin for empiric antibiotic coverage, he continues on Decadron 6 mg daily, and she also received a dose of IV Lasix today, yesterday CT chest without contrast was completed showing worsening right greater than left bilateral multifocal ground glass opacities and organizing consolidation consistent with COVID-19 infection progression and or developing ARDS. His lower extremity Dopplers were negative for DVT. he has not had any labs in the last couple of days. On the 2021 patient seen in follow-up on medical surgical floor. He is awake and alert, he is on irritable and 55 L and FiO2 of 79%, and his pulse ox is 91-96%, mildly dyspneic with conversation and exertion, but overall seems to be in no acute distress, he sitting up in the recliner, hemodynamically has been stable, his been afebrile, today's chest x-ray has been reviewed during persistent right greater than left bilateral multifocal and confluent opacities without significant change from his most recent studies, CTA chest was obtained showing extensive pulmonary infiltrates that were noted to be worsening and his last exam, this was consistent with multifocal pneumonia, and right lower lobe pulmonary embolism involving the lateral basal segment, and patient's Lovenox was adjusted to therapeutic dose, and is currently at 90 mg twice daily. Patient was previously on Augmentin, however his pro-calcitonin level is negative, his last 2 pro-calcitonin levels were 0.7, and 0.16, improving, sputum culture has shown no growth, his white count is 14.4, hemoglobin is 15.9, today's d-dimer is greater than 34, electrolytes showed sodium of 1:30, potassium is 4.7, chloride is 96, CO2 35, B1 is 21 creatinine 1.01. His inflammatory markers were trending up on yesterday's labs, and LDH was down to 2303, and CRP was up to 23.4. On 08/25/2021 patient seen in follow-up on medical surgical floor. Patient is currently on Airvo at 55% FiO2 was dropped down to 70%, his pulse ox between 94- 95%, still requiring high flow oxygen but appears to be more comfortable, less dyspneic, less diaphoretic compared to yesterday's exam. No fever or chills, vital signs have been stable. No complaints of worsening dyspnea, no chest discomfort, occasional cough, no phlegm production. Tolerating oral intake, no nausea vomiting diarrhea, no abdominal pain. Today's labs have been reviewed, his white blood count is slightly improved and is down to 13.3, hemoglobin is stable at 14.3, d-dimer is improving and is down to 9.34, electrolytes and renal profile are unremarkable. Inflammatory markers are improving, and teaches down to 1342, and CRP is down to 4.9, potassium level is negative at 0.16, Augmentin was discontinued, patient was started on Baricitinib yesterday on 08/24/2021 On 08/26/2021 patient seen in follow-up on medical surgical floor. She is awake and alert in no acute distress, currently remains on Airvo and the flow and FiO2 are being weaned, and today patient is on flow of 55 L/m and FiO2 is down to 55% and this is down from 70% on yesterday's exam, he is otherwise appears to be no acute distress, no worsening dyspnea or cough, no chest discomfort. Afebrile, blood pressures been stable. Occasional cough, no phlegm production, tolerating oral intake, no nausea vomiting or diarrhea, no abdominal pain. Today's labs have been reviewed, white blood cell count is 15.9, hemoglobin is 15.5, sodium is 138, potassium is 5.3, chloride is 96, CO2 is 37, B1 is 23 creatinine 0.9, LDH and CRP were improving on yesterday's labs, today's values are still pending, pro-calcitonin level was negative at 0.16. Remains on Baricitinib, Decadron, Lovenox, multivitamins Objective - Vital Signs Vital signs: Vital Signs Temp 98.2 F 08/26/21 16:37 Pulse 91 08/26/21 16:37 Resp 18 08/26/21 16:37 BP 120/74 08/26/21 16:37 Pulse Ox 93 L 08/26/21 16:37 Intake & Output 08/25/21 08/26/21 08/26/21 18:59 06:59 18:59 Intake Total 500 Output Total 650 675 Balance -650 500 -675 Weight 94.2 kg Intake: Oral 500 Output: Urine 650 675 Other: Voiding Method Bedside Commode Bedside Commode Urinal Urinal # Voids 2 # Bowel Movements 1 1 - Exam GENERAL EXAM: Alert, very pleasant, 61-year-old white male on Airvo currently at 55 L and FiO2 of 55% with a pulse ox of 91-95% HEAD: Normocephalic/atraumatic. EYES: Normal reaction of pupils, equal size. Conjunctiva pink, sclera white. NOSE: Clear with pink turbinates. THROAT: No erythema or exudates. NECK: No masses, no JVD, no thyroid enlargement, no adenopathy. CHEST: No chest wall deformity. Symmetrical expansion. LUNGS: Equal air entry with bilateral crackles CVS: Regular rate and rhythm, normal S1 and S2, no gallops, no murmurs, no rubs ABDOMEN: Soft, nontender. No hepatosplenomegaly, normal bowel sounds, no guarding or rigidity. EXTREMITIES: No clubbing, no edema, no cyanosis, 2+ pulses and upper and lower extremities. MUSCULOSKELETAL: Muscle strength and tone normal. SPINE: No scoliosis or deformity SKIN: No rashes CENTRAL NERVOUS SYSTEM: Alert and oriented -3. No focal deficits, tone is normal in all 4 extremities. PSYCHIATRIC: Alert and oriented -3. Appropriate affect. Intact judgment and insight. - Labs CBC & Chem 7: 08/26/21 06:20 08/26/21 06:20 Labs: Abnormal Lab Results - Last 24 Hours (Table) 08/26/21 08/26/21 Range/Units 06:20 06:20 WBC 15.9 H (3.8-10.6) k/uL MCV 100.1 H (80.0-100.0) fL MCHC 30.4 L (31.0-37.0) g/dL Neutrophils # 13.8 H (1.3-7.7) k/uL Potassium 5.3 H (3.5-5.1) mmol/L Chloride 96 L (98-107) mmol/L Carbon Dioxide 37 H (22-30) mmol/L BUN 23 H (9-20) mg/dL Glucose 103 H (74-99) mg/dL ALT 95 H (4-49) U/L Albumin 3.2 L (3.5-5.0) g/dL Microbiology - Last 24 Hours (Table) 08/23/21 15:20 Blood Culture - Preliminary Blood No Growth after 72 hours 08/23/21 15:05 Blood Culture - Preliminary Blood No Growth after 48 hours Assessment and Plan Plan: Assessment: #1. Acute hypoxic respiratory failure secondary to acute COVID-19 pneumonia, onset of symptoms of 08/10/2021, patient tested positive on 08/11/2021, patient was outside the window for Remdesivir, not vaccinated, and today on 08/21/2021 patient's oxygenation seems to have worsened, and patient is on 11 L of oxygen, with increasing Fio2 needs, will be placed on Airvo, patient was treated with empiric Augmentin for possibility of superinfection however his calcitonin level was negative 2, Augmentin will be discontinued and patient started on Baricitinib on 08/24/2021. On 08/25/2021 patient remains on Airvo at 55 L and FiO2 of 70%, breathing more comfortably, still requiring high flow oxygen #2. Acute right lower lobe pulmonary embolism, diagnosed per CTA chest on 08/23/2021, Lovenox dose was adjusted and increased to 90 mg twice daily #3. Elevated inflammatory markers related to the above, with a trend up in the LDH levels #4. Mild transaminitis secondary to the above, improved #5. Increased d-dimer of 16.1, initial CT angios of the chest was negative for definite central or lobar branch pulmonary embolism, and no evidence of DVT on lower extremity Dopplers. However subsequent CTA chest showed right lower lobe pulmonary embolism involving the lateral basal segment #6. Hypertension #7. History of nephrolithiasis with previous stent placement in the right ureter #8. History of chronic bronchial asthma, unspecified #9. Previous history of DVT in the left leg #10. Lifetime nonsmoker Plan: Oxygenation is improving and FiO2 is being weaned slowly Patient continues on Airvo currently a 55 L and FiO2 of 55% Vitals are stable, no fever or chills Continue current medical treatment continue baricitinib, Decadron, on therapeutic doses of Lovenox for newly diagnosed right lower lobe pulmonary embolism Continue multivitamins We'll continue to follow his clinical course I performed a history & physical examination of the patient and discussed their management with my nurse practitioner, Neyda Frances. I reviewed the nurse practitioner's note and agree with the documented findings and plan of care. Lung sounds are positive for diffuse crackles throughout the lung smith. The findings and the impression was discussed with the patient. I attest to the documentation by the nurse practitioner. Time with Patient: Less than 30
[2021-08-26] MEDS: LOSARTAN 50 MG TAB PO SCH (20:17)
[2021-08-27 06:57] LABS: Basophils # (A) 0.1 k/uL (0-0.2); Basophils % (A) 0 %; Eosinophils % (A) 0 %; HCT 50.5 % (39.0-53.0); HGB 15.6 gm/dL (13.0-17.5); Hypochromasia Moderate; Lymphocytes # (A) 1.3 k/uL (1.0-4.8); Lymphocytes % (A) 6 %; MCH 30.6 pg (25.0-35.0); MCHC 30.9 g/dL (31.0-37.0); Mean Platelet Volume 9.5; Monocytes # (A) 0.9 k/uL (0-1.0); Monocytes % (A) 4 %; Neutrophils # (A) 17.8 k/uL (1.3-7.7); Neutrophils % (A) 88 %; Platelet Count 309 k/uL (150-450); RDW 13.1 % (11.5-15.5); WBC 20.2 k/uL (3.8-10.6)
[2021-08-27 07:07] LABS: ALT 93 U/L (4-49); AST 38 U/L (17-59); African American GFR (CKD) >90 (>60 ml/min/1.73 sqM); Albumin 3.1 g/dL (3.5-5.0); Alkaline Phosphatase 54 U/L (38-126); Anion Gap 4 mmol/L; Blood Urea Nitrogen 19 mg/dL (9-20); Calcium 9.1 mg/dL (8.4-10.2); Carbon Dioxide 36 mmol/L (22-30); Chloride 99 mmol/L (98-107); Globulin 3.1 g/dL; Glucose 143 mg/dL (74-99); Non-African American GFR(CKD) 89 (>60 ml/min/1.73 sqM); Potassium 5.6 mmol/L (3.5-5.1); Sodium 139 mmol/L (137-145); Total Bilirubin 0.7 mg/dL (0.2-1.3); Total Protein 6.2 g/dL (6.3-8.2)
[2021-08-27] MEDS: FUROSEMIDE 10 MG/ML 4 ML VIAL IV SCH (08:56)
[2021-08-27] MEDS: ASCORBIC ACID 500 MG TAB PO SCH (08:57)
[2021-08-27] MEDS: DEXAMETHASONE SOD PHOSPHATE 10 MG/ML 1 ML VIAL IVP SCH (08:57)
[2021-08-27] MEDS: PANTOPRAZOLE 40 MG TABLET PO SCH (08:57)
[2021-08-27] MEDS: ASPIRIN 81 MG PO SCH (08:57)
[2021-08-27] MEDS: ENOXAPARIN 100 MG/ML SYRINGE SQ SCH (08:57)
[2021-08-27] MEDS: CHOLECALCIFEROL 125 MCG (5000 IU) TABLET PO SCH (08:57)
[2021-08-27] MEDS: ZINC SULFATE 220 MG CAP PO SCH (08:57)
[2021-08-27] MEDS: BENZOCAINE 20% HEMORRHOIDAL OINT 28GM RECTAL SCH ×2 (09:00→20:22)
[2021-08-27] MEDS: ALBUTEROL HFA INHALER INHALATION SCH ×4 (09:20→20:22)
[2021-08-27] MEDS: ALPRAZolam 0.25 MG TAB PO PRN ×2 (12:26→22:48)
--- NOTE | 2021-08-27 14:54 | P.PN ---
Subjective Progress Note Date: 08/27/21 HISTORY OF PRESENT ILLNESS 61-year-old male one of Dr. Hooper patient with past medical history of asthma, DVT, hypertension hyperlipidemia and kidney stone who apparently developed to being sick for over a week and ended up having fever chills and body ache went to [facility] and was tested for COVID-19 on Tuesday came back positive he contacted his primary care was supposed to go for monoclonal anti- body which was delay and was not called until today. Patient today become extremely sick developed to have worsening fever or chills abdominal pain with nausea without vomiting worsening shortness of breath with cough productive phlegm and finally become extremely hypoxic with minimal exertion. Ended up coming to the emergency department at [facility] where was seen and evaluated his oxygen level was in the mid 80. Patient was started on oxygen, updraft ayesha tment,Decadron along with multivitamins. Patient will be admitted to the hospital will be seen pulmonary watch his marker watch for any worsening symptoms with his high risk of clotting and coagulopathy patient be started on Lovenox as well. 08/18: Patient is seen today in the emergency center [facility]. Pulse ox is 97% on 2 L nasal cannula. He has been afebrile, heart rate 80, blood pressure 118/78. Patient has been seen by pulmonary medicine and is outside the window for Remdesivir and does not meet criteria for Baricitinib. Patient is on Ventolin inhaler, vitamin supplements, dexamethasone 6 mg IV daily, Lovenox 40 mg subcu daily. 08/19: Patient is [facility]. He is on 3 L nasal cannula with pulse ox of 94%. His been afebrile, heart rate 87, blood pressure 135/85. She is currently on Ventolin inhaler, vitamin supplements, Lovenox, Decadron 6 mg IV push daily. He is followed by pulmonary medicine. Repeat blood work reveals potassium of 5.4, creatinine 0.85. AST 107, ALT 72, alkaline phosphatase 45. LDH 1828, C-reactive protein 17.6. 08/20: Patient states that he slept well last night he states he is still having muscle aches and is complaining of constipation. Oxygen saturation is 89-94% on 3-4 L. He has been afebrile, heart rate 107, blood pressure 157/89. LDH 2105. C-reactive protein 15. We had anticipated discharge home today but due to patient's increased oxygen need, patient's discharge will be held. Possible discharge tomorrow. 08/21: Patient is on oxygen now increased to 6 L pulse ox of 82%. We'll ask for humidification and extension. Patient states that he is using incentive spirometry. Repeat chest x-ray reveals similar borderline cardiomegaly and right greater than left Covid infiltrates. Repeat blood work reveals d-dimer 16.11. LDH 2163, C-reactive protein 6.7. Bilateral lower extremity ultrasound negative for DVT. Augmentin was added yesterday by pulmonary medicine. 08/22: Patient is found sitting up in a chair. He is in moderate distress. At this time his prognosis is guarded. His oxygen has been increased to 6 L. His pulse ox around the 5-90%. Patient is anxious and feels tired. Patient is not sleeping well due to not being able to be comfortable either in chair or lying in bed. Patient is complaining of tightness to his bilateral calfs. Bilateral venous Dopplers were negative for DVT. He remains on Lovenox. Lasix 40 mg IV will be added. Patient continues to use his incentive spirometer. His repeat chest x-ray is similar to previous which shows borderline cardiomegaly and right greater than left Covid infiltrates. We will schedule patient for a CT today. 08/23: Patient is found sitting up in a chair. He is in moderate distress. Patient states that he is feeling BETTER today compared to yesterday. Patient diuresed with a significant amount of output. Chest CAT scan shows Worsening right greater than left bilateral multifocal groundglass opacities and or ganizing consolidations consistent with COVID-19 infection progression and/or developing ARDS. We will continue with Lasix 40 mg daily. Patient to use incentive spirometer. Redness is guarded. 08/24: Patient is seen for follow-up, currently on airvo, 60 L nasal cannula, patient is to receive first dose of BARICINIB today as recommended by pulmonary, patient is on Lovenox high-dose, for a small right pulmonary emboli, involving the right basal segment. Patient has small amount of uncontrolled epistaxis at this time, can have when necessary AFRIN vitals are stable, systolic 122-131, RR in the 20s, double basic count 14.4 CO2 of 35, ALT AST elevated, glucose 104, creatinine 1.1 from a previous of 0.85 C-reactive protein is worse, 23, from a previous of 6.7 LDH of 2300 08/25: Patient is seen today on the [facility] floor, resting in recliner. He denies having any further nosebleeds. He is taking a protein supplement that is brought from home. Patient complaining of hemorrhoids flaring up and appointment ordered. Pulse ox is 91% on AirVO FiO2 75%. Heart rate 89, blood pressure 139/89, afebrile. He is continued on Baricitinib 24 milligrams daily, dexamethasone, Lovenox, vitamin supplements and followed closely by pulmonary medicine. Repeat blood work reveals WBC 13.3, d-dimer 9.34, LDH 1342, C- reactive protein 4.9. 08/26 patient feels that he is breathing a little bit better today from yesterday. He complains of a tickle in his throat and a nonproductive cough. He does have a little lower extremity edema. He is currently on AirVo at 55 L/m, FiO2 57%, with pulse ox is 96%, afebrile, heart rate 91, blood pressure 117/67. 08/27: A seen today sitting on edge of the bed and appears to be more stable. Respiratory status is improving and he is currently on 10 L high flow nasal cannula with pulse ox of 97%. His been afebrile, heart rate 62, blood pressure 136/81. Repeat blood work reveals WBC 28.2. Potassium 5.6, blood sugar 143. ALT 93. REVIEW OF SYSTEMS Constitutional: no fever and chills with night sweats-improved, no weight change , generalized weakness fatigue and tiredness. EENT: No headache. No blurred vision or double vision, no loss of vision. No loss of Hearing, no ringing in the ears, no dizziness. No nasal drainage or congestion. Reports mild epistaxis. No sore throat. Lungs: positive shortness of breath cough mild wheezes and productive sputum level improving. Reports dyspnea with exertion. Cardiovascular: No chest pain, no lower extremity edema. No palpitations. No paroxysmal nocturnal dyspnea. No orthopnea. No lightheadedness or dizziness. No syncopal episodes. Abdominal: Denies abdominal pain. No nausea, vomiting. No diarrhea. No constipation. No bloody or tarry stools.. No loss of appetite. Genitourinary: No dysuria, increased frequency, urgency. No urinary retention. Musculoskeletal: No myalgias. No muscle weakness, no gait dysfunction, no frequent falls. No back pain. No neck pain. Integumentary: No wounds, no lesions. No rash or pruritus. No unusual bruising. No change in hair or nails. Neurologic: No aphasia. No facial droop. No change in mentation. No head injury. No headache. No paralysis. No paresthesia. Psychiatric: No depression. No anxiety. No mood swings. Endocrine: No abnormal blood sugars. No weight change. No excessive sweating or thirst. No cold intolerance. PHYSICAL EXAMINATION Gen: This is well-developed 61-year-old male resting in recliner currently on high flow nasal cannula at 10 L. HEENT: Head is atraumatic, normocephalic. Pupils equal, round. Sclerae is anicteric. NECK: Supple. No JVD. No lymphadenopathy. No thyromegaly. LUNGS: decrease + bilaterally with fine rhonchi mild crackles in the bases specially the right side with mild expiratory wheezes. HEART: Regular rate and rhythm. No murmur. ABDOMEN: Soft. Bowel sounds are present. No masses. No tenderness. EXTREMITIES: Trace bilateral pedal edema. No calf tenderness. Dorsalis pedis palpable bilaterally. NEUROLOGICAL: Patient is awake, alert and oriented x3. Cranial nerves 2 through 12 are grossly intact. ASSESSMENT AND PLAN 1. Sepsis secondary to severe COVID-19 pneumonitis: Patient be admitted to the hospital, continue Ventolin inhaler, vitamin supplements, dexamethasone 6 mg IV daily, Lovenox 80 every 12 hours mg subcu Pulmonary consult appreciated. Continue oxygen therapy at high flow nasal cannula 10 L Augmentin added. Patient started onBaricitinib 08/24. 2 severe hypoxia: Most likely from COVID-19, will watch for any secondary infection as well continue O2 to keep his pulse ox 90 percentile and still use updraft treatment. Bilateral venous Dopplers negative for DVT. Repeat chest CT today. Lasix 40 mg IV daily BARICINIB STARTED 08/24/21. On dexamethasone IV 6 twice a day 3 history of asthma, mild intermittent: Has been on albuterol inhaler along with dexamethasone. 4. Small right pulmonary emboli, secondary to Covid 4 hypertension: Has been on losartan 50 mg a day we'll resume medication. 6 DVT venous thrombosis patient most likely has coagulopathy was start on Lo venox 40 mg daily. 7 GI prophylaxis: Patient be on Pepcid 20 mg a day along with Zofran on as neede d basis. 8 CODE STATUS: Full code. Prognosis guarded Impression and plan of care have been directed as dictated by the signing physician. Pema Villagomez nurse practitioner acting as scribe for signing physician. Objective - Vital Signs Vital signs: Vital Signs Temp 98.2 F 08/27/21 06:00 Pulse 81 08/27/21 06:00 Resp 18 08/27/21 08:00 BP 107/68 08/27/21 06:00 Pulse Ox 96 08/27/21 10:01 Intake & Output 08/26/21 08/27/21 08/27/21 18:59 06:59 18:59 Intake Total 200 Output Total 1175 Balance -1175 200 Weight 94.5 kg Intake: Oral 200 Output: Urine 1175 Other: Voiding Method Bedside Commode Bedside Commode Bedside Commode Urinal Urinal Urinal # Voids 4 - Labs CBC & Chem 7: 08/27/21 06:32 08/27/21 06:32 Labs: Abnormal Lab Results - Last 24 Hours (Table) 08/27/21 08/27/21 Range/Units 06:32 06:32 WBC 20.2 H (3.8-10.6) k/uL MCHC 30.9 L (31.0-37.0) g/dL Neutrophils # 17.8 H (1.3-7.7) k/uL Potassium 5.6 H (3.5-5.1) mmol/L Carbon Dioxide 36 H (22-30) mmol/L Glucose 143 H (74-99) mg/dL ALT 93 H (4-49) U/L Total Protein 6.2 L (6.3-8.2) g/dL Albumin 3.1 L (3.5-5.0) g/dL Microbiology - Last 24 Hours (Table) 08/23/21 15:05 Blood Culture - Preliminary Blood No Growth after 72 hours 08/23/21 15:20 Blood Culture - Preliminary Blood No Growth after 72 hours
[2021-08-27] MEDS: BARICITINIB 2 MG TABLET PO SCH (15:10)
--- NOTE | 2021-08-27 17:29 | P.PN ---
Subjective Progress Note Date: 08/27/21 Principal diagnosis: Dyspnea, cough This a very pleasant 61-year-old male patient with a history of hypertension, nephrolithiasis requiring stent placement to the right ureter who follows with Dr. Hooper as his primary care provider. He presented here to the emergency room yesterday with complaints of increasing shortness breath, cough congestion fever since 08/10/2021. He tested positive on 08/11/2021 with COVID-19. He is not vaccinated. He is currently seen in the emergency department. Currently resting fairly comfortably in bed. He is on 2 L nasal cannula to maintain O2 saturation is a low 90s. Chest x-ray does reveal evidence of bilateral multifocal opacities CT angiogram was suboptimal but no large central or definite lobar branch pulmonary emboli. Again bilateral patchy groundglass opacities consistent with COVID-19 pneumonia. Right greater than left. White count 10.0. Hemoglobin 15.7. Platelets 135. Lymphocytes 0.6. D-dimer 0.69. Sodium 133. Potassium 4.1. Creatinine 1.1. AST 129. ALT 59. LDH 1545. C- reactive protein 23.9. Pro-calcitonin 0.52. He's been initiated on Decadron, Lovenox, vitamin supplements. Outside the window for Remdesivir. Not meeting criteria for Baricitinib. On 08-19-2021 patient seen in follow-up on medical surgical floor. He is awake and alert, he sitting up in the recliner, in no acute distress, he states his breathing and coughing are significantly improved, he is currently on 3 L of oxygen pulse ox is 90-94%, lung sounds are positive for diffuse crackles throughout, cough is nonproductive, no complete chest discomfort. His been afebrile overnight, vital signs have been stable, tolerating oral intake, no nausea vomiting diarrhea, currently continues on Decadron 6 blood gram daily, he is on Lovenox 40 mg daily, COVID-19 multivitamins, today's labs have been reviewed, sodium is improved and is up to 142, potassium is 5.4, chloride is 104, B1 is 20, creatinine 0.85, AST is 107, slightly improved, and ALT is 72, slightly worsened, alkaline phosphatase is 45, within normal limits, his LDH has slightly increased, and is up to 1828, CRP is improved and is down to 17.6. His pro-calcitonin level was 0.52, borderline. On 08/20/2021 patient seen in follow-up on medical surgical floor, he states his cough is improved, although still persist, in he is now bringing up some brownish colored phlegm. He remains on 3 L of oxygen his pulse ox is 89-92%. Lung sounds are diminished at the bases, with bibasilar crackles, his pro- calcitonin on admission was borderline elevated, although repeat pro-calcitonin today came back improved at 0.27 down from 0.52 on admission, his inflammatory markers were reviewed, his LDH has increased and is up to 2105, and CRP is 15, d-dimer is negative at 0.54, patient is afebrile, blood pressure stable, he is asking if he is currently given any antibiotics. He remains on dexamethasone 6 mg daily, remains on multivitamins, and prophylactic dose Lovenox. On 08/21/2021 patient seen in follow-up on medical surgical floor, his oxygen requirements have slightly increased, he is currently on 5 L of oxygen compared to 3 L and yesterday's exam, his pulse ox is 89-91%, he is dyspneic with exertion but appears to be no acute distress, lung sounds reveal diffuse coarse crackles bilaterally, he still coughing up some brownish colored phlegm, yesterday we started him on oral Augmentin for empiric antibiotic coverage, he continues on Decadron 6 mg daily, he is on prophylactic dose Lovenox and inhaled bronchodilators. He's had no acute events overnight, no complaints of hemoptysis, no combines of chest discomfort. His chest x-ray today shows cardiomegaly and right greater than left COVID-19 infiltrates. Today's labs have been reviewed, his inflammatory markers have trended up and LDH is up to 2163, and CRP 6.7 improved since admission, pro-calcitonin level was 0.27, his d-dimer has increased to 16.1, his CT angios of the chest was suboptimal contra st bolus and breathing motion artifact however there was no evidence of a large central or definite lobar branch pulmonary embolism. On 08/23/2021 patient seen in follow-up on medical surgical floor. Patient is currently up to 11 L of oxygen, his pulse ox is 89-92%, and as such his oxygenation has progressively worsened over. Of last 48 hours, patient is afebrile, hemodynamically stable, he states she still coughing up some brownish colored phlegm, another sputum culture was sent today, patient has been on Augmentin for empiric antibiotic coverage, he continues on Decadron 6 mg daily, and she also received a dose of IV Lasix today, yesterday CT chest without contrast was completed showing worsening right greater than left bilateral multifocal ground glass opacities and organizing consolidation consistent with COVID-19 infection progression and or developing ARDS. His lower extremity Dopplers were negative for DVT. he has not had any labs in the last couple of days. On the 2021 patient seen in follow-up on medical surgical floor. He is awake and alert, he is on irritable and 55 L and FiO2 of 79%, and his pulse ox is 91-96%, mildly dyspneic with conversation and exertion, but overall seems to be in no acute distress, he sitting up in the recliner, hemodynamically has been stable, his been afebrile, today's chest x-ray has been reviewed during persistent right greater than left bilateral multifocal and confluent opacities without significant change from his most recent studies, CTA chest was obtained showing extensive pulmonary infiltrates that were noted to be worsening and his last exam, this was consistent with multifocal pneumonia, and right lower lobe pulmonary embolism involving the lateral basal segment, and patient's Lovenox was adjusted to therapeutic dose, and is currently at 90 mg twice daily. Patient was previously on Augmentin, however his pro-calcitonin level is negative, his last 2 pro-calcitonin levels were 0.7, and 0.16, improving, sputum culture has shown no growth, his white count is 14.4, hemoglobin is 15.9, today's d-dimer is greater than 34, electrolytes showed sodium of 1:30, potassium is 4.7, chloride is 96, CO2 35, B1 is 21 creatinine 1.01. His inflammatory markers were trending up on yesterday's labs, and LDH was down to 2303, and CRP was up to 23.4. On 08/25/2021 patient seen in follow-up on medical surgical floor. Patient is currently on Airvo at 55% FiO2 was dropped down to 70%, his pulse ox between 94- 95%, still requiring high flow oxygen but appears to be more comfortable, less dyspneic, less diaphoretic compared to yesterday's exam. No fever or chills, vital signs have been stable. No complaints of worsening dyspnea, no chest discomfort, occasional cough, no phlegm production. Tolerating oral intake, no nausea vomiting diarrhea, no abdominal pain. Today's labs have been reviewed, his white blood count is slightly improved and is down to 13.3, hemoglobin is stable at 14.3, d-dimer is improving and is down to 9.34, electrolytes and renal profile are unremarkable. Inflammatory markers are improving, and teaches down to 1342, and CRP is down to 4.9, potassium level is negative at 0.16, Augmentin was discontinued, patient was started on Baricitinib yesterday on 08/24/2021 On 08/26/2021 patient seen in follow-up on medical surgical floor. She is awake and alert in no acute distress, currently remains on Airvo and the flow and FiO2 are being weaned, and today patient is on flow of 55 L/m and FiO2 is down to 55% and this is down from 70% on yesterday's exam, he is otherwise appears to be no acute distress, no worsening dyspnea or cough, no chest discomfort. Afebrile, blood pressures been stable. Occasional cough, no phlegm production, tolerating oral intake, no nausea vomiting or diarrhea, no abdominal pain. Today's labs have been reviewed, white blood cell count is 15.9, hemoglobin is 15.5, sodium is 138, potassium is 5.3, chloride is 96, CO2 is 37, B1 is 23 creatinine 0.9, LDH and CRP were improving on yesterday's labs, today's values are still pending, pro-calcitonin level was negative at 0.16. Remains on Baricitinib, Decadron, Lovenox, multivitamins On 08/27/2021 patient seen in follow-up on medical surgical floor, his oxygenation has improved significantly, and he has been weaned off the Airvo device, he is currently on 10 L of oxygen per high flow nasal cannula, his pulse ox is 96%, he sitting up in the chair, tolerating activity, no worsening dyspnea or cough, no fever or chills. No complaints of chest discomfort, patient has been maintained on Lovenox 90 mg twice daily for newly diagnosed right lower lobe pulmonary embolism. He is able to take in oral medications, and we'll consider switching him to oral Eliquis today, he will also continues on Decadron 6 mg BID, he is on daily dose of Lasix 40 mg IV push daily, And multivitamins. Seems to be doing much better. Today's labs have been reviewed, his white blood cell count is 20.2, hemoglobin is 15.6, potassium is 5.6, chloride is 99, CO2 is 36, B1 is 19, creatinine 0.93, his lower extremity edema has significantly improved compared to days ago. Objective - Vital Signs Vital signs: Vital Signs Temp 97.5 F L 08/27/21 14:00 Pulse 62 08/27/21 14:00 Resp 20 08/27/21 14:00 BP 136/81 08/27/21 14:00 Pulse Ox 97 08/27/21 14:00 Intake & Output 08/26/21 08/27/21 08/27/21 18:59 06:59 18:59 Intake Total 200 Output Total 1175 Balance -1175 200 Weight 94.5 kg Intake: Oral 200 Output: Urine 1175 Other: Voiding Method Bedside Commode Bedside Commode Bedside Commode Urinal Urinal Urinal # Voids 4 - Exam GENERAL EXAM: Alert, very pleasant, 61-year-old white male on 10 L per high flow nasal cannula with a pulse ox of 96% HEAD: Normocephalic/atraumatic. EYES: Normal reaction of pupils, equal size. Conjunctiva pink, sclera white. NOSE: Clear with pink turbinates. THROAT: No erythema or exudates. NECK: No masses, no JVD, no thyroid enlargement, no adenopathy. CHEST: No chest wall deformity. Symmetrical expansion. LUNGS: Equal air entry with bilateral crackles CVS: Regular rate and rhythm, normal S1 and S2, no gallops, no murmurs, no rubs ABDOMEN: Soft, nontender. No hepatosplenomegaly, normal bowel sounds, no guarding or rigidity. EXTREMITIES: No clubbing, no edema, no cyanosis, 2+ pulses and upper and lower extremities. MUSCULOSKELETAL: Muscle strength and tone normal. SPINE: No scoliosis or deformity SKIN: No rashes CENTRAL NERVOUS SYSTEM: Alert and oriented -3. No focal deficits, tone is no rmal in all 4 extremities. PSYCHIATRIC: Alert and oriented -3. Appropriate affect. Intact judgment and insight. - Labs CBC & Chem 7: 08/27/21 06:32 08/27/21 06:32 Labs: Abnormal Lab Results - Last 24 Hours (Table) 08/27/21 08/27/21 Range/Units 06:32 06:32 WBC 20.2 H (3.8-10.6) k/uL MCHC 30.9 L (31.0-37.0) g/dL Neutrophils # 17.8 H (1.3-7.7) k/uL Potassium 5.6 H (3.5-5.1) mmol/L Carbon Dioxide 36 H (22-30) mmol/L Glucose 143 H (74-99) mg/dL ALT 93 H (4-49) U/L Total Protein 6.2 L (6.3-8.2) g/dL Albumin 3.1 L (3.5-5.0) g/dL Microbiology - Last 24 Hours (Table) 08/23/21 15:05 Blood Culture - Preliminary Blood No Growth after 72 hours 08/23/21 15:20 Blood Culture - Preliminary Blood No Growth after 72 hours Assessment and Plan Plan: Assessment: #1. Acute hypoxic respiratory failure secondary to acute COVID-19 pneumonia, onset of symptoms of 08/10/2021, patient tested positive on 08/11/2021, patient was outside the window for Remdesivir, not vaccinated, and today on 08/21/2021 patient's oxygenation seems to have worsened, and patient is on 11 L of oxygen, with increasing Fio2 needs, will be placed on Airvo, patient was treated with empiric Augmentin for possibility of superinfection however his calcitonin level was negative 2, Augmentin will be discontinued and patient started on Baricitinib on 08/24/2021. On 08/25/2021 patient remains on Airvo at 55 L and FiO2 of 70%, breathing more comfortably, still requiring high flow oxygen. On the August 27 2021 patient is down to 10 L per high flow nasal cannula, improving #2. Acute right lower lobe pulmonary embolism, diagnosed per CTA chest on 08/23/2021, Lovenox dose was adjusted and increased to 90 mg twice daily #3. Elevated inflammatory markers related to the above, with a trend up in the LDH levels #4. Mild transaminitis secondary to the above, improved #5. Increased d-dimer of 16.1, initial CT angios of the chest was negative for definite central or lobar branch pulmonary embolism, and no evidence of DVT on lower extremity Dopplers. However subsequent CTA chest showed right lower lobe pulmonary embolism involving the lateral basal segment #6. Hypertension #7. History of nephrolithiasis with previous stent placement in the right ureter #8. History of chronic bronchial asthma, unspecified #9. Previous history of DVT in the left leg #10. Lifetime nonsmoker Plan: Oxygenation continues to improve, and patient is off Airvo and is on regular nasal cannula at 10 L/m his pulse ox is 96% Breathing comfortably Vitals are stable, no fever or chills Continue current medical treatment continue baricitinib, Decadron will be cut back to 6 mg once daily, switch Lovenox to Eliquis 10 mg twice daily for 7 days, and 5 mg twice daily thereafter Continue multivitamins We'll continue to follow his clinical course I performed a history & physical examination of the patient and discussed their management with my nurse practitioner, Neyda Frances. I reviewed the nurse pr actitioner's note and agree with the documented findings and plan of care. Lung sounds are positive for diffuse crackles throughout the lung smith. The findings and the impression was discussed with the patient. I attest to the documentation by the nurse practitioner. Time with Patient: Less than 30
[2021-08-27] MEDS: LOSARTAN 50 MG TAB PO SCH (20:21)
[2021-08-27] MEDS: APIXABAN 5 MG TAB PO SCH (20:21)
[2021-08-27] MEDS: MAG HYDROX/AL HYDROX/SIMETH 30 ML CUP PO PRN (21:33)
[2021-08-28] MEDS: ARTIFICIAL TEARS OINTMENT 3.5 GM TUBE BOTH EYES PRN (01:24)
[2021-08-28] MEDS: IBUPROFEN 400 MG TAB PO PRN (01:24)
[2021-08-28 07:06] LABS: Basophils # (A) 0.1 k/uL (0-0.2); Basophils % (A) 0 %; Eosinophils % (A) 0 %; HCT 49.2 % (39.0-53.0); HGB 14.9 gm/dL (13.0-17.5); Hypochromasia Moderate; Lymphocytes # (A) 2.1 k/uL (1.0-4.8); Lymphocytes % (A) 10 %; MCHC 30.3 g/dL (31.0-37.0); MCV 99.1 fL (80.0-100.0); Mean Platelet Volume 9.3; Monocytes # (A) 1.2 k/uL (0-1.0); Monocytes % (A) 5 %; Neutrophils # (A) 18.3 k/uL (1.3-7.7); Neutrophils % (A) 84 %; Platelet Count 305 k/uL (150-450); RBC 4.97 m/uL (4.30-5.90); RDW 13.2 % (11.5-15.5); WBC 21.8 k/uL (3.8-10.6)
[2021-08-28 07:14] LABS: ALT 156 U/L (4-49); AST 73 U/L (17-59); African American GFR (CKD) 81 (>60 ml/min/1.73 sqM); Albumin 3.2 g/dL (3.5-5.0); Albumin/Globulin Ratio 1.1; Alkaline Phosphatase 51 U/L (38-126); Anion Gap 2 mmol/L; Blood Urea Nitrogen 25 mg/dL (9-20); Calcium 8.9 mg/dL (8.4-10.2); Carbon Dioxide 38 mmol/L (22-30); Chloride 97 mmol/L (98-107); Globulin 2.8 g/dL; Glucose 88 mg/dL (74-99); Non-African American GFR(CKD) 70 (>60 ml/min/1.73 sqM); Potassium 5.2 mmol/L (3.5-5.1); Sodium 137 mmol/L (137-145); Total Bilirubin 0.7 mg/dL (0.2-1.3)
[2021-08-28] MEDS: ALBUTEROL HFA INHALER INHALATION SCH ×4 (08:22→21:08)
[2021-08-28] MEDS: DEXAMETHASONE SOD PHOSPHATE 10 MG/ML 1 ML VIAL IVP SCH (08:38)
[2021-08-28] MEDS: FUROSEMIDE 10 MG/ML 4 ML VIAL IV SCH (08:38)
[2021-08-28] MEDS: CHOLECALCIFEROL 125 MCG (5000 IU) TABLET PO SCH (08:38)
[2021-08-28] MEDS: ZINC SULFATE 220 MG CAP PO SCH (08:38)
[2021-08-28] MEDS: ASCORBIC ACID 500 MG TAB PO SCH (08:39)
[2021-08-28] MEDS: PANTOPRAZOLE 40 MG TABLET PO SCH (08:39)
[2021-08-28] MEDS: ASPIRIN 81 MG PO SCH (08:39)
[2021-08-28] MEDS: APIXABAN 5 MG TAB PO SCH ×2 (08:39→19:54)
[2021-08-28] MEDS: BENZOCAINE 20% HEMORRHOIDAL OINT 28GM RECTAL SCH ×2 (08:49→19:55)
--- NOTE | 2021-08-28 11:42 | P.PN ---
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 Patient today become extremely sick developed to have worsening fever or chills abdominal pain with nausea without vomiting worsening shortness of breath with cough productive phlegm and finally become extremely hypoxic with minimal exertion. Ended up coming to the emergency department at [facility] where was seen and evaluated his oxygen level was in the mid 80. Patient was started on oxygen, updraft ayesha tment,Decadron along with multivitamins. Patient will be admitted to the hospital will be seen pulmonary watch his marker watch for any worsening symptoms with his high risk of clotting and coagulopathy patient be started on Lovenox as well. 08/18: Patient is seen today in the emergency center [facility]. Pulse ox is 97% on 2 L nasal cannula. He has been afebrile, heart rate 80, blood pressure 118/78. Patient has been seen by pulmonary medicine and is outside the window for Remdesivir and does not meet criteria for Baricitinib. Patient is on Ventolin inhaler, vitamin supplements, dexamethasone 6 mg IV daily, Lovenox 40 mg subcu daily. 08/19: [facility]. He is on 3 L nasal cannula with pulse ox of 94%. His been afebrile, heart rate 87, blood pressure 135/85. She is currently on Ventolin inhaler, vitamin supplements, Lovenox, Decadron 6 mg IV push daily. He is followed by pulmonary medicine. Repeat blood work reveals potassium of 5.4, creatinine 0.85. AST 107, ALT 72, alkaline phosphatase 45. LDH 1828, C-reactive protein 17.6. 08/20: Patient states that he slept well last night he states he is still having muscle aches and is complaining of constipation. Oxygen saturation is 89-94% on 3-4 L. He has been afebrile, heart rate 107, blood pressure 157/89. LDH 2105. C-reactive protein 15. We had anticipated discharge home today but due to patient's increased oxygen need, patient's discharge will be held. Possible discharge tomorrow. 08/21: Patient is on oxygen now increased to 6 L pulse ox of 82%. We'll ask for humidification and extension. Patient states that he is using incentive spirometry. Repeat chest x-ray reveals similar borderline cardiomegaly and right greater than left Covid infiltrates. Repeat blood work reveals d-dimer 16.11. LDH 2163, C-reactive protein 6.7. Bilateral lower extremity ultrasound negative for DVT. Augmentin was added yesterday by pulmonary medicine. 08/22: Patient is found sitting up in a chair. He is in moderate distress. At this time his prognosis is guarded. His oxygen has been increased to 6 L. His pulse ox around the 5-90%. Patient is anxious and feels tired. Patient is not sleeping well due to not being able to be comfortable either in chair or lying in bed. Patient is complaining of tightness to his bilateral calfs. Bilateral venous Dopplers were negative for DVT. He remains on Lovenox. Lasix 40 mg IV will be added. Patient continues to use his incentive spirometer. His repeat chest x-ray is similar to previous which shows borderline cardiomegaly and right greater than left Covid infiltrates. We will schedule patient for a CT today. 08/23: Patient is found sitting up in a chair. He is in moderate distress. Patient states that he is feeling BETTER today compared to yesterday. Patient diuresed with a significant amount of output. Chest CAT scan shows Worsening right greater than left bilateral multifocal groundglass opacities and or ganizing consolidations consistent with COVID-19 infection progression and/or developing ARDS. We will continue with Lasix 40 mg daily. Patient to use incentive spirometer. Redness is guarded. 08/24: Patient is seen for follow-up, currently on airvo, 60 L nasal cannula, patient is to receive first dose of BARICINIB today as recommended by pulmonary, patient is on Lovenox high-dose, for a small right pulmonary emboli, involving the right basal segment. Patient has small amount of uncontrolled epistaxis at this time, can have when necessary AFRIN vitals are stable, systolic 122-131, RR in the 20s, double basic count 14.4 CO2 of 35, ALT AST elevated, glucose 104, creatinine 1.1 from a previous of 0.85 C-reactive protein is worse, 23, from a previous of 6.7 LDH of 2300 08/25: [facility], resting in recliner. He denies having any further nosebleeds. He is taking a protein supplement that is brought from home. Patient complaining of hemorrhoids flaring up and appointment ordered. Pulse ox is 91% on AirVO FiO2 75%. Heart rate 89, blood pressure 139/89, afebrile. He is continued on Baricitinib 24 milligrams daily, dexamethasone, Lovenox, vitamin supplements and followed closely by pulmonary medicine. Repeat blood work reveals WBC 13.3, d-dimer 9.34, LDH 1342, C- reactive protein 4.9. 08/26 patient feels that he is breathing a little bit better today from yesterday. He complains of a tickle in his throat and a nonproductive cough. He does have a little lower extremity edema. He is currently on AirVo at 55 L/m, FiO2 57%, with pulse ox is 96%, afebrile, heart rate 91, blood pressure 117/67. 08/27: A seen today sitting on edge of the bed and appears to be more stable. Respiratory status is improving and he is currently on 10 L high flow nasal cannula with pulse ox of 97%. His been afebrile, heart rate 62, blood pressure 136/81. Repeat blood work reveals WBC 28.2. Potassium 5.6, blood sugar 143. ALT 93. 08/28: Patient is on 10 L nasal cannula with pulse ox 96%. Respiratory status seems to be stabilizing and he seems to be quite comfortable at rest. He states that his sleeping last night was better, no chest pain or tenderness. He has been afebrile, heart rate 76, blood pressure 124/81. Repeat blood work reveals WBC 21.8. Potassium 5.2, CO2 38, creatinine 1.1 form BUN 25. AST 73, ALT 156. REVIEW OF SYSTEMS Constitutional: no fever and chills with night sweats-improved, no weight change, generalized weakness fatigue and tiredness. EENT: No headache. No blurred vision or double vision, no loss of vision. No loss of Hearing, no ringing in the ears, no dizziness. No nasal drainage or congestion. Reports mild epistaxis. No sore throat. Lungs: positive shortness of breath leading cough mild wheezes and productive sputum level improving. Reports dyspnea with exertion. Cardiovascular: No chest pain, no lower extremity edema. No palpitations. No paroxysmal nocturnal dyspnea. No orthopnea. No lightheadedness or dizziness. No syncopal episodes. Abdominal: Denies abdominal pain. No nausea, vomiting. No diarrhea. No constipation. No bloody or tarry stools.. No loss of appetite. Genitourinary: No dysuria, increased frequency, urgency. No urinary retention. Musculoskeletal: No myalgias. No muscle weakness, no gait dysfunction, no frequent falls. No back pain. No neck pain. Integumentary: No wounds, no lesions. No rash or pruritus. No unusual bruising. No change in hair or nails. Neurologic: No aphasia. No facial droop. No change in mentation. No head injury. No headache. No paralysis. No paresthesia. Psychiatric: No depression. No anxiety. No mood swings. Endocrine: No abnormal blood sugars. No weight change. No excessive sweating or thirst. No cold intolerance. PHYSICAL EXAMINATION Gen: This is well-developed 61-year-old male resting in recliner currently on high flow nasal cannula at 10 L. HEENT: Head is atraumatic, normocephalic. Pupils equal, round. Sclerae is anicteric. NECK: Supple. No JVD. No lymphadenopathy. No thyromegaly. LUNGS: decrease + bilaterally with fine rhonchi mild crackles in the bases speci ally the right side with mild expiratory wheezes. HEART: Regular rate and rhythm. No murmur. ABDOMEN: Soft. Bowel sounds are present. No masses. No tenderness. EXTREMITIES: Trace bilateral pedal edema. No calf tenderness. Dorsalis pedis palpable bilaterally. NEUROLOGICAL: Patient is awake, alert and oriented x3. Cranial nerves 2 through 12 are grossly intact. ASSESSMENT AND PLAN 1. Sepsis secondary to severe COVID-19 pneumonitis: Patient be admitted to the hospital, continue Ventolin inhaler, vitamin supplements, dexamethasone 6 mg IV daily, eliquis. Pulmonary consult appreciated. Continue oxygen therapy at high flow nasal cannula 10 L Lovenox. Patient started onBaricitinib 08/24. 2 severe hypoxia: Most likely from COVID-19, will watch for any secondary infection as well continue O2 to keep his pulse ox 90 percentile and still use updraft treatment. Bilateral venous Dopplers negative for DVT. Lasix 40 mg IV daily BARICINIB STARTED 08/24/21. On dexamethasone IV 6 daily 3 history of asthma, mild intermittent: Has been on albuterol inhaler along with dexamethasone. 4. Small right pulmonary emboli, secondary to Covid 4 hypertension: Has been on losartan 50 mg a day we'll resume medication. 6 DVT venous thrombosis patient most likely has coagulopathy was start on Lovenox 40 mg daily. 7 GI prophylaxis: Patient be on Pepcid 20 mg a day along with Zofran on as needed basis. 8 CODE STATUS: Full code. Prognosis guarded Impression and plan of care have been directed as dictated by the signing physician. Pema Villagomez nurse practitioner acting as scribe for signing physician. Objective - Vital Signs Vital signs: Vital Signs Temp 98.6 F 08/28/21 06:00 Pulse 76 08/28/21 06:00 Resp 18 08/28/21 06:00 BP 124/81 08/28/21 06:00 Pulse Ox 96 08/28/21 06:00 Intake & Output 08/27/21 08/28/21 08/28/21 18:59 06:59 18:59 Intake Total 1080 Balance 1080 Weight 94.5 kg Intake: Oral 1080 Other: Voiding Method Bedside Commode Bedside Commode Urinal Urinal Urinal # Voids 5 2 - Labs CBC & Chem 7: 08/28/21 06:33 08/28/21 06:33 Labs: Abnormal Lab Results - Last 24 Hours (Table) 08/28/21 08/28/21 Range/Units 06:33 06:33 WBC 21.8 H (3.8-10.6) k/uL MCHC 30.3 L (31.0-37.0) g/dL Neutrophils # 18.3 H (1.3-7.7) k/uL Monocytes # 1.2 H (0-1.0) k/uL Potassium 5.2 H (3.5-5.1) mmol/L Chloride 97 L (98-107) mmol/L Carbon Dioxide 38 H (22-30) mmol/L BUN 25 H (9-20) mg/dL AST 73 H (17-59) U/L ALT 156 H (4-49) U/L Total Protein 6.0 L (6.3-8.2) g/dL Albumin 3.2 L (3.5-5.0) g/dL Microbiology - Last 24 Hours (Table) 08/23/21 15:05 Blood Culture - Preliminary Blood No Growth after 96 hours 08/23/21 15:20 Blood Culture - Preliminary Blood No Growth after 96 hours
[2021-08-28] MEDS: ALPRAZolam 0.25 MG TAB PO PRN ×2 (13:09→23:09)
--- NOTE | 2021-08-28 14:18 | P.PN ---
Subjective Progress Note Date: 08/28/21 This a very pleasant 61-year-old male patient with a history of hypertension, nephrolithiasis requiring stent placement to the right ureter who follows with Dr. Hooper as his primary care provider. He presented here to the emergency room yesterday with complaints of increasing shortness breath, cough congestion fever since 08/10/2021. He tested positive on 08/11/2021 with COVID-19. He is not vaccinated. He is currently seen in the emergency department. Currently resting fairly comfortably in bed. He is on 2 L nasal cannula to maintain O2 saturation is a low 90s. Chest x-ray does reveal evidence of bilateral multifocal opacities CT angiogram was suboptimal but no large central or definite lobar branch pulmonary emboli. Again bilateral patchy groundglass opacities consistent with COVID-19 pneumonia. Right greater than left. White count 10.0. Hemoglobin 15.7. Platelets 135. Lymphocytes 0.6. D-dimer 0.69. Sodium 133. Potassium 4.1. Creatinine 1.1. AST 129. ALT 59. LDH 1545. C- reactive protein 23.9. Pro-calcitonin 0.52. He's been initiated on Decadron, Lovenox, vitamin supplements. Outside the window for Remdesivir. Not meeting criteria for Baricitinib. On 08-19-2021 patient seen in follow-up on medical surgical floor. He is awake and alert, he sitting up in the recliner, in no acute distress, he states his breathing and coughing are significantly improved, he is currently on 3 L of oxygen pulse ox is 90-94%, lung sounds are positive for diffuse crackles throu ghout, cough is nonproductive, no complete chest discomfort. His been afebrile overnight, vital signs have been stable, tolerating oral intake, no nausea vomiting diarrhea, currently continues on Decadron 6 blood gram daily, he is on Lovenox 40 mg daily, COVID-19 multivitamins, today's labs have been reviewed, sodium is improved and is up to 142, potassium is 5.4, chloride is 104, B1 is 20, creatinine 0.85, AST is 107, slightly improved, and ALT is 72, slightly worsened, alkaline phosphatase is 45, within normal limits, his LDH has slightly increased, and is up to 1828, CRP is improved and is down to 17.6. His pro- calcitonin level was 0.52, borderline. On 08/20/2021 patient seen in follow-up on medical surgical floor, he states his cough is improved, although still persist, in he is now bringing up some brownish colored phlegm. He remains on 3 L of oxygen his pulse ox is 89-92%. Lung sounds are diminished at the bases, with bibasilar crackles, his pro- calcitonin on admission was borderline elevated, although repeat pro-calcitonin today came back improved at 0.27 down from 0.52 on admission, his inflammatory markers were reviewed, his LDH has increased and is up to 2105, and CRP is 15, d-dimer is negative at 0.54, patient is afebrile, blood pressure stable, he is asking if he is currently given any antibiotics. He remains on dexamethasone 6 mg daily, remains on multivitamins, and prophylactic dose Lovenox. On 08/21/2021 patient seen in follow-up on medical surgical floor, his oxygen requirements have slightly increased, he is currently on 5 L of oxygen compared to 3 L and yesterday's exam, his pulse ox is 89-91%, he is dyspneic with exertion but appears to be no acute distress, lung sounds reveal diffuse coarse crackles bilaterally, he still coughing up some brownish colored phlegm, yesterday we started him on oral Augmentin for empiric antibiotic coverage, he continues on Decadron 6 mg daily, he is on prophylactic dose Lovenox and inhaled bronchodilators. He's had no acute events overnight, no complaints of hemoptysis, no combines of chest discomfort. His chest x-ray today shows cardiomegaly and right greater than left COVID-19 infiltrates. Today's labs have been reviewed, his inflammatory markers have trended up and LDH is up to 2163, and CRP 6.7 improved since admission, pro-calcitonin level was 0.27, his d-dimer has increased to 16.1, his CT angios of the chest was suboptimal contrast bolus and breathing motion artifact however there was no evidence of a large central or definite lobar branch pulmonary embolism. On 08/23/2021 patient seen in follow-up on medical surgical floor. Patient is currently up to 11 L of oxygen, his pulse ox is 89-92%, and as such his oxygenation has progressively worsened over. Of last 48 hours, patient is a febrile, hemodynamically stable, he states she still coughing up some brownish colored phlegm, another sputum culture was sent today, patient has been on Augmentin for empiric antibiotic coverage, he continues on Decadron 6 mg daily, and she also received a dose of IV Lasix today, yesterday CT chest without contrast was completed showing worsening right greater than left bilateral multifocal ground glass opacities and organizing consolidation consistent with COVID-19 infection progression and or developing ARDS. His lower extremity Dopplers were negative for DVT. he has not had any labs in the last couple of days. On the 2021 patient seen in follow-up on medical surgical floor. He is awake and alert, he is on irritable and 55 L and FiO2 of 79%, and his pulse ox is 91-96%, mildly dyspneic with conversation and exertion, but overall seems to be in no acute distress, he sitting up in the recliner, hemodynamically has been stable, his been afebrile, today's chest x-ray has been reviewed during persistent right greater than left bilateral multifocal and confluent opacities without significant change from his most recent studies, CTA chest was obtained showing extensive pulmonary infiltrates that were noted to be worsening and his last exam, this was consistent with multifocal pneumonia, and right lower lobe pulmonary embolism involving the lateral basal segment, and patient's Lovenox was adjusted to therapeutic dose, and is currently at 90 mg twice daily. Patient was previously on Augmentin, however his pro-calcitonin level is negative, his last 2 pro-calcitonin levels were 0.7, and 0.16, improving, sputum culture has shown no growth, his white count is 14.4, hemoglobin is 15.9, today's d-dimer is greater than 34, electrolytes showed sodium of 1:30, potassium is 4.7, chloride is 96, CO2 35, B1 is 21 creatinine 1.01. His inflammatory markers were trending up on yesterday's labs, and LDH was down to 2303, and CRP was up to 23.4. On 08/25/2021 patient seen in follow-up on medical surgical floor. Patient is currently on Airvo at 55% FiO2 was dropped down to 70%, his pulse ox between 94- 95%, still requiring high flow oxygen but appears to be more comfortable, less dyspneic, less diaphoretic compared to yesterday's exam. No fever or chills, vital signs have been stable. No complaints of worsening dyspnea, no chest discomfort, occasional cough, no phlegm production. Tolerating oral intake, no nausea vomiting diarrhea, no abdominal pain. Today's labs have been reviewed, his white blood count is slightly improved and is down to 13.3, hemoglobin is stable at 14.3, d-dimer is improving and is down to 9.34, electrolytes and renal profile are unremarkable. Inflammatory markers are improving, and teaches down to 1342, and CRP is down to 4.9, potassium level is negative at 0.16, Augmentin was discontinued, patient was started on Baricitinib yesterday on 08/24/2021 On 08/26/2021 patient seen in follow-up on medical surgical floor. She is awake and alert in no acute distress, currently remains on Airvo and the flow and FiO2 are being weaned, and today patient is on flow of 55 L/m and FiO2 is down to 55% and this is down from 70% on yesterday's exam, he is otherwise appears to be no acute distress, no worsening dyspnea or cough, no chest discomfort. Afebrile, blood pressures been stable. Occasional cough, no phlegm production, tolerating oral intake, no nausea vomiting or diarrhea, no abdominal pain. Today's labs have been reviewed, white blood cell count is 15.9, hemoglobin is 15.5, sodium is 138, potassium is 5.3, chloride is 96, CO2 is 37, B1 is 23 creatinine 0.9, LDH and CRP were improving on yesterday's labs, today's values are still pending, pro-calcitonin level was negative at 0.16. Remains on Baricitinib, Decadron, Lovenox, multivitamins On 08/27/2021 patient seen in follow-up on medical surgical floor, his oxygen ation has improved significantly, and he has been weaned off the Airvo device, he is currently on 10 L of oxygen per high flow nasal cannula, his pulse ox is 96%, he sitting up in the chair, tolerating activity, no worsening dyspnea or cough, no fever or chills. No complaints of chest discomfort, patient has been maintained on Lovenox 90 mg twice daily for newly diagnosed right lower lobe pulmonary embolism. He is able to take in oral medications, and we'll consider switching him to oral Eliquis today, he will also continues on Decadron 6 mg BID, he is on daily dose of Lasix 40 mg IV push daily, And multivitamins. Seems to be doing much better. Today's labs have been reviewed, his white blood cell count is 20.2, hemoglobin is 15.6, potassium is 5.6, chloride is 99, CO2 is 36, B1 is 19, creatinine 0.93, his lower extremity edema has significantly improved compared to days ago. 08/28/2021, I'm seeing the patient for a follow-up. The patient is gradually improving. We have seen significant improvement in his oxygenation yesterday the patient is currently down to9 L of oxygen by nasal cannula. His pulse ox was around 94-95%. I further weaning down to 8 L. He is feeling great. He has no specific complaints. We have monitored combination of Baricitinib and Decadron. Decadron was reduced yesterday to 6 mg once a day. He remains on Baricitinib. His echo is slightly elevated. Nevertheless, he has no signs of infection. No signs of any sepsis.the patient remains afebrile. White cell count is at 21.8. Hemoglobin is at 14.9. Sodium is at 137. BUN is at 25 with a creatinine of 1.1. Inflammatory markers were elevated back in 08/25/2021. His LDH level was 1003 and 42 with a CRP level of 4.9. A repeat level will be obtained for tomorrow. He has no specific complaints otherwise for now. No altered mentation. No nausea or vomiting. Is quite active. Objective - Vital Signs Vital signs: Vital Signs Temp 97.5 F L 08/28/21 10:00 Pulse 87 08/28/21 10:00 Resp 17 08/28/21 10:00 BP 125/77 08/28/21 10:00 Pulse Ox 95 08/28/21 10:00 Intake & Output 08/27/21 08/28/21 08/28/21 18:59 06:59 18:59 Intake Total 1080 Balance 1080 Weight 94.5 kg Intake: Oral 1080 Other: Voiding Method Bedside Commode Bedside Commode Urinal Urinal Urinal # Voids 5 2 - Exam GENERAL EXAM: Alert, very pleasant, 61-year-old white male on 9 L per high flow nasal cannula with a pulse ox of 96% HEAD: Normocephalic/atraumatic. EYES: Normal reaction of pupils, equal size. Conjunctiva pink, sclera white. NOSE: Clear with pink turbinates. THROAT: No erythema or exudates. NECK: No masses, no JVD, no thyroid enlargement, no adenopathy. CHEST: No chest wall deformity. Symmetrical expansion. LUNGS: Equal air entry with bilateral crackles CVS: Regular rate and rhythm, normal S1 and S2, no gallops, no murmurs, no rubs ABDOMEN: Soft, nontender. No hepatosplenomegaly, normal bowel sounds, no guarding or rigidity. EXTREMITIES: No clubbing, no edema, no cyanosis, 2+ pulses and upper and lower extremities. MUSCULOSKELETAL: Muscle strength and tone normal. SPINE: No scoliosis or deformity SKIN: No rashes CENTRAL NERVOUS SYSTEM: Alert and oriented -3. No focal deficits, tone is norm al in all 4 extremities. PSYCHIATRIC: Alert and oriented -3. Appropriate affect. Intact judgment and insight. - Labs CBC & Chem 7: 08/28/21 06:33 08/28/21 06:33 Labs: Abnormal Lab Results - Last 24 Hours (Table) 08/28/21 08/28/21 Range/Units 06:33 06:33 WBC 21.8 H (3.8-10.6) k/uL MCHC 30.3 L (31.0-37.0) g/dL Neutrophils # 18.3 H (1.3-7.7) k/uL Monocytes # 1.2 H (0-1.0) k/uL Potassium 5.2 H (3.5-5.1) mmol/L Chloride 97 L (98-107) mmol/L Carbon Dioxide 38 H (22-30) mmol/L BUN 25 H (9-20) mg/dL AST 73 H (17-59) U/L ALT 156 H (4-49) U/L Total Protein 6.0 L (6.3-8.2) g/dL Albumin 3.2 L (3.5-5.0) g/dL Microbiology - Last 24 Hours (Table) 08/23/21 15:05 Blood Culture - Preliminary Blood No Growth after 96 hours 08/23/21 15:20 Blood Culture - Preliminary Blood No Growth after 96 hours Assessment and Plan Plan: #1. Acute hypoxic respiratory failure secondary to acute COVID-19 pneumonia, onset of symptoms of 08/10/2021, patient tested positive on 08/11/2021, patient was outside the window for Remdesivir, not vaccinated, and today on 08/21/2021 patient's oxygenation seems to have worsened, and patient is on 11 L of oxygen, with increasing Fio2 needs, will be placed on Airvo, patient was treated with empiric Augmentin for possibility of superinfection however his calcitonin level was negative 2, Augmentin will be discontinued and patient started on Baricitinib on 08/24/2021. over the past 24-48 hours. The patient encounter significant improvement in oxygenation. The patient was taken off the Airvo. The patient is currently on 9 L of oxygen by nasal cannula. He has adequate pulse ox and he should be able to wean even further. #2. Acute right lower lobe pulmonary embolism, diagnosed per CTA chest on 08/23/2021,the patient was taken off the Lovenox and the patient is currently on Eliquis 10 mg by mouth twice a day as part of the protocol. #3. Elevated inflammatory markers related to the above, with a trend up in the LDH levels, repeat levels will be obtained for tomorrow #4. Mild transaminitis secondary to the above, improved #5. Increased d-dimer of 16.1, initial CT angios of the chest was negative for definite central or lobar branch pulmonary embolism, and no evidence of DVT on lower extremity Dopplers. However subsequent CTA chest showed right lower lobe pulmonary embolism involving the lateral basal segment #6. Hypertension #7. History of nephrolithiasis with previous stent placement in the right urete r #8. History of chronic bronchial asthma, unspecified #9. Previous history of DVT in the left leg #10. Lifetime nonsmoker Plan: Oxygenation continues to improve, and patient is off Airvo and is on regular nasal cannula at 9 L/m his pulse ox is 96%, should be able to wean down further. I dropped him down to 8 seizures Breathing comfortably continue Eliquis per protocol regarding his pulmonary embolism Continue the combination of Decadron and Baricitinib. I'm considering discontinuation of Baricitinib at the later stages a concern of infection. The patient is clinically improving. Continue current medical treatment Continue multivitamins We'll continue to follow his clinical course
[2021-08-28] MEDS: BARICITINIB 2 MG TABLET PO SCH (15:00)
[2021-08-28] MEDS: LOSARTAN 50 MG TAB PO SCH (19:55)
[2021-08-29 05:51] LABS: Basophils # (A) 0.1 k/uL (0-0.2); Basophils % (A) 0 %; Eosinophils # (A) 0.1 k/uL (0-0.7); Eosinophils % (A) 0 %; HGB 15.2 gm/dL (13.0-17.5); Hypochromasia Slight; Lymphocytes # (A) 2.3 k/uL (1.0-4.8); Lymphocytes % (A) 9 %; MCH 30.4 pg (25.0-35.0); MCHC 31.1 g/dL (31.0-37.0); MCV 97.6 fL (80.0-100.0); Mean Platelet Volume 11.4; Monocytes # (A) 1.2 k/uL (0-1.0); Monocytes % (A) 5 %; Neutrophils # (A) 21.3 k/uL (1.3-7.7); Neutrophils % (A) 85 %; Platelet Count 355 k/uL (150-450); RBC 5.02 m/uL (4.30-5.90); RDW 13.3 % (11.5-15.5); WBC 24.9 k/uL (3.8-10.6)
[2021-08-29 07:40] LABS: ALT 125 U/L (4-49); AST 40 U/L (17-59); African American GFR (CKD) 88 (>60 ml/min/1.73 sqM); Albumin 2.9 g/dL (3.5-5.0); Alkaline Phosphatase 46 U/L (38-126); Anion Gap 1 mmol/L; Blood Urea Nitrogen 26 mg/dL (9-20); Calcium 8.7 mg/dL (8.4-10.2); Carbon Dioxide 38 mmol/L (22-30); Chloride 96 mmol/L (98-107); Globulin 2.9 g/dL; Glucose 94 mg/dL (74-99); Non-African American GFR(CKD) 76 (>60 ml/min/1.73 sqM); Sodium 135 mmol/L (137-145); Total Bilirubin 0.8 mg/dL (0.2-1.3); Total Protein 5.8 g/dL (6.3-8.2)
[2021-08-29] MEDS: ALBUTEROL HFA INHALER INHALATION SCH ×4 (07:42→19:23)
[2021-08-29] MEDS: DEXAMETHASONE SOD PHOSPHATE 10 MG/ML 1 ML VIAL IVP SCH (08:39)
[2021-08-29] MEDS: ZINC SULFATE 220 MG CAP PO SCH (08:40)
[2021-08-29] MEDS: CHOLECALCIFEROL 125 MCG (5000 IU) TABLET PO SCH (08:40)
[2021-08-29] MEDS: ASCORBIC ACID 500 MG TAB PO SCH (08:40)
[2021-08-29] MEDS: PANTOPRAZOLE 40 MG TABLET PO SCH (08:40)
[2021-08-29] MEDS: ASPIRIN 81 MG PO SCH (08:40)
[2021-08-29] MEDS: BENZOCAINE 20% HEMORRHOIDAL OINT 28GM RECTAL SCH (08:40)
[2021-08-29] MEDS: FUROSEMIDE 10 MG/ML 4 ML VIAL IV SCH (08:40)
[2021-08-29] MEDS: APIXABAN 5 MG TAB PO SCH (08:40)
[2021-08-29] MEDS: ARTIFICIAL TEARS OINTMENT 3.5 GM TUBE BOTH EYES PRN (08:46)
[2021-08-29 10:09] VITALS: BP 121/80; PULSE 108; RESP 18; TEMP 98.8
--- NOTE | 2021-08-29 12:49 | P.DS ---
Providers Date of admission: 08/17/21 15:59 Attending physician: Fidencio Fuentes Consults: 08/17/21 15:40 Consult Physician Routine Consulting Provider: Bertin Root Consult Reason/Comments: covid+, covid pna, acute hypoxic resp failure Do you want consulting provider notified?: Yes Primary care physician: Dario Hooper [facility] Course: ISTORY OF PRESENT ILLNESS 61-year-old male one of Dr. Hooper patient with past medical history of asthma, DVT, hypertension hyperlipidemia and kidney stone who apparently developed to being sick for over a week and ended up having fever chills and body ache went to [facility] and was tested for COVID-19 on Tuesday came back positive he contacted his primary care was supposed to go for monoclonal anti- body which was delay and was not called until today. Patient today become extremely sick developed to have worsening fever or chills abdominal pain with nausea without vomiting worsening shortness of breath with cough productive phlegm and finally become extremely hypoxic with minimal exertion. Ended up coming to the emergency department at [facility] where was seen and evaluated his oxygen level was in the mid 80. Patient was started on oxygen, updraft treatment,Decadron along with multivitamins. Patient will be admitted to the hospital will be seen pulmonary watch his marker watch for any worsening symptoms with his high risk of clotting and coagulopathy patient be started on Lovenox as well. 08/18: Patient is seen today in the emergency center waiting for bed on the [facility] floor. Pulse ox is 97% on 2 L nasal cannula. He has been afebrile, heart rate 80, blood pressure 118/78. Patient has been seen by pulmonary medicine and is outside the window for Remdesivir and does not meet criteria for Baricitinib. Patient is on Ventolin inhaler, vitamin supplements, dexamethasone 6 mg IV daily, Lovenox 40 mg subcu daily. 08/19: Patient is seen today on the [facility] floor. He is on 3 L nasal cannula with pulse ox of 94%. His been afebrile, heart rate 87, blood pressure 135/85. She is currently on Ventolin inhaler, vitamin supplements, Lovenox, Decadron 6 mg IV push daily. He is followed by pulmonary medicine. Repeat blood work reveals potassium of 5.4, creatinine 0.85. AST 107, ALT 72, alkaline phosphatase 45. LDH 1828, C-reactive protein 17.6. 08/20: Patient states that he slept well last night he states he is still having muscle aches and is complaining of constipation. Oxygen saturation is 89-94% on 3-4 L. He has been afebrile, heart rate 107, blood pressure 157/89. LDH 2105. C-reactive protein 15. We had anticipated discharge home today but due to patient's increased oxygen need, patient's discharge will be held. Possible discharge tomorrow. 08/21: Patient is on oxygen now increased to 6 L pulse ox of 82%. We'll ask for humidification and extension. Patient states that he is using incentive spirometry. Repeat chest x-ray reveals similar borderline cardiomegaly and right greater than left Covid infiltrates. Repeat blood work reveals d-dimer 16.11. LDH 2163, C-reactive protein 6.7. Bilateral lower extremity ultrasound negative for DVT. Augmentin was added yesterday by pulmonary medicine. 08/22: Patient is found sitting up in a chair. He is in moderate distress. At this time his prognosis is guarded. His oxygen has been increased to 6 L. His pulse ox around the 5-90%. Patient is anxious and feels tired. Patient is not sleeping well due to not being able to be comfortable either in chair or lying in bed. Patient is complaining of tightness to his bilateral calfs. Bilateral venous Dopplers were negative for DVT. He remains on Lovenox. Lasix 40 mg IV will be added. Patient continues to use his incentive spirometer. His repeat chest x-ray is similar to previous which shows borderline cardiomegaly and right greater than left Covid infiltrates. We will schedule patient for a CT today. 08/23: Patient is found sitting up in a chair. He is in moderate distress. Patient states that he is feeling BETTER today compared to yesterday. Patient diuresed with a significant amount of output. Chest CAT scan shows Worsening right greater than left bilateral multifocal groundglass opacities and organizing consolidations consistent with COVID-19 infection progression and/or developing ARDS. We will continue with Lasix 40 mg daily. Patient to use incentive spirometer. Redness is guarded. 08/24: Patient is seen for follow-up, currently on airvo, 60 L nasal cannula, patient is to receive first dose of BARICINIB today as recommended by pulmonary, patient is on Lovenox high-dose, for a small right pulmonary emboli, involving the right basal segment. Patient has small amount of uncontrolled epistaxis at this time, can have when necessary AFRIN vitals are stable, systolic 122-131, RR in the 20s, double basic count 14.4 CO2 of 35, ALT AST elevated, glucose 104, creatinine 1.1 from a previous of 0.85 C-reactive protein is worse, 23, from a previous of 6.7 LDH of 2300 08/25: [facility], resting in recliner. He denies having any further nosebleeds. He is taking a protein supplement that is brought from home. Patient complaining of hemorrhoids flaring up and appointment ordered. Pulse ox is 91% on AirVO FiO2 75%. Heart rate 89, blood pressure 139/89, afebrile. He is continued on Baricitinib 24 milligrams daily, dexamethasone, Lovenox, vitamin supplements and followed closely by pulmonary medicine. Repeat blood work reveals WBC 13.3, d-dimer 9.34, LDH 1342, C- reactive protein 4.9. 08/26 patient feels that he is breathing a little bit better today from yesterday. He complains of a tickle in his throat and a nonproductive cough. He does have a little lower extremity edema. He is currently on AirVo at 55 L/m, FiO2 57%, with pulse ox is 96%, afebrile, heart rate 91, blood pressure 117/67. 08/27: A seen today sitting on edge of the bed and appears to be more stable. Respiratory status is improving and he is currently on 10 L high flow nasal cannula with pulse ox of 97%. His been afebrile, heart rate 62, blood pressure 136/81. Repeat blood work reveals WBC 28.2. Potassium 5.6, blood sugar 143. ALT 93. 08/28: Patient is on 10 L nasal cannula with pulse ox 96%. Respiratory status seems to be stabilizing and he seems to be quite comfortable at rest. He states that his sleeping last night was better, no chest pain or tenderness. He has been afebrile, heart rate 76, blood pressure 124/81. Repeat blood work reveals WBC 21.8. Potassium 5.2, CO2 38, creatinine 1.1 form BUN 25. AST 73, ALT 156. REVIEW OF SYSTEMS Constitutional: no fever and chills with night sweats-improved, no weight change, generalized weakness fatigue and tiredness. EENT: No headache. No blurred vision or double vision, no loss of vision. No loss of Hearing, no ringing in the ears, no dizziness. No nasal drainage or congestion. Reports mild epistaxis. No sore throat. Lungs: positive shortness of breath leading cough mild wheezes and productive sputum level improving. Reports dyspnea with exertion. Cardiovascular: No chest pain, no lower extremity edema. No palpitations. No paroxysmal nocturnal dyspnea. No orthopnea. No lightheadedness or dizziness. No syncopal episodes. Abdominal: Denies abdominal pain. No nausea, vomiting. No diarrhea. No constipation. No bloody or tarry stools.. No loss of appetite. Genitourinary: No dysuria, increased frequency, urgency. No urinary retention. Musculoskeletal: No myalgias. No muscle weakness, no gait dysfunction, no frequent falls. No back pain. No neck pain. Integumentary: No wounds, no lesions. No rash or pruritus. No unusual bruising. No change in hair or nails. Neurologic: No aphasia. No facial droop. No change in mentation. No head injury. No headache. No paralysis. No paresthesia. Psychiatric: No depression. No anxiety. No mood swings. Endocrine: No abnormal blood sugars. No weight change. No excessive sweating or thirst. No cold intolerance. PHYSICAL EXAMINATION Gen: This is well-developed 61-year-old male resting in recliner currently on high flow nasal cannula at 10 L. HEENT: Head is atraumatic, normocephalic. Pupils equal, round. Sclerae is anicteric. NECK: Supple. No JVD. No lymphadenopathy. No thyromegaly. LUNGS: decrease + bilaterally with fine rhonchi mild crackles in the bases specially the right side with mild expiratory wheezes. HEART: Regular rate and rhythm. No murmur. ABDOMEN: Soft. Bowel sounds are present. No masses. No tenderness. EXTREMITIES: Trace bilateral pedal edema. No calf tenderness. Dorsalis pedis palpable bilaterally. NEUROLOGICAL: Patient is awake, alert and oriented x3. Cranial nerves 2 through 12 are grossly intact. Final diagnosis 1. Sepsis secondary to severe COVID-19 pneumonitis: Patient be admitted to the hospital, continue Ventolin inhaler, vitamin supplements, dexamethasone 6 mg treated, eliquis small pulmonary PE right side. Pulmonary consult appreciated. Continue oxygen therapy at 3l on discharge . Patient started on Baricitinib 08/24 completed 08/29 2021 completed 2 severe hypoxia: Most likely from COVID-19, will watch for any secondary infection as well continue O2 to keep his pulse ox 90 percentile and still use updraft treatment. Bilateral venous Dopplers negative for DVT. Lasix 40 mg oral daily completed BARICINIB STARTED 08/24/21 .. On dexamethasone 6 daily 3 history of asthma, mild intermittent: Has been on albuterol inhaler along with dexamethasone. 4. Small right pulmonary emboli, secondary to Covid to complete eliquis to complete 6 months 4 hypertension: Has been on losartan 50 mg a day we'll resume medication. 6 DVT venous thrombosis patient most likely has coagulopathy was start on Lovenox 40 mg daily. 7 GI prophylaxis: Patient be on Pepcid 20 mg a day along with Zofran on as needed basis. 8 CODE STATUS: Full code Follow-up with PCP 2-3 d, follow-up with Dr. Caldwell 1 wk Home O2 3 L nasal cannula Does not require home therapy at this time Discharge Medication List Losartan Potassium 50 mg PO HS 11/04/20 [History] Ascorbic Acid [Vitamin C] 1,000 mg PO DAILY 08/17/21 [History] Aspirin EC [Ecotrin Low Dose] 81 mg PO DAILY 08/17/21 [History] Cholecalciferol [Vitamin D3 (125 Mcg = 5000 Iu)] 125 mcg PO DAILY 08/17/21 [History] Zinc 50 mg PO DAILY 08/17/21 [History] Dexamethasone [Decadron] 6 mg PO DAILY #5 tablet 08/20/21 [Rx] ALPRAZolam [Xanax] 0.25 mg PO TID PRN #12 tab 08/29/21 [Rx] Acetaminophen Tab [Tylenol] 1,000 mg PO Q6HR PRN tab 08/29/21 [Rx] Albuterol Inhaler [Ventolin Hfa Inhaler] 2 puff INHALATION RT-QID #1 each 08/29/21 [Rx] Apixaban [Eliquis] 5 mg PO BID #60 tab 08/29/21 [Rx] Apixaban [Eliquis] 10 mg PO BID #10 tab 08/29/21 [Rx] Docusate [Colace] 100 mg PO BID PRN cap 08/29/21 [Rx] Mag Hydrox/Al Hydrox/Simeth [Maalox] 30 ml PO Q4HR PRN ml 08/29/21 [Rx] hydrALAZINE HCL [Apresoline] 25 mg PO BID PRN #60 tab 08/29/21 [Rx] . Patient Condition at Discharge: Good Plan - Discharge Summary Discharge Rx Participant: No New Discharge Prescriptions: New hydrALAZINE HCL [Apresoline] 25 mg PO BID PRN #60 tab PRN Reason: Blood Pressure - High Docusate [Colace] 100 mg PO BID PRN cap PRN Reason: Constipation Mag Hydrox/Al Hydrox/Simeth [Maalox] 30 ml PO Q4HR PRN ml PRN Reason: Gi Upset Acetaminophen Tab [Tylenol] 1,000 mg PO Q6HR PRN tab PRN Reason: Fever>101 Albuterol Inhaler [Ventolin Hfa Inhaler] 2 puff INHALATION RT-QID #1 each Apixaban [Eliquis] 5 mg PO BID #60 tab Apixaban [Eliquis] 10 mg PO BID #10 tab ALPRAZolam [Xanax] 0.25 mg PO TID PRN #12 tab PRN Reason: Anxiety Dexamethasone 6 mg PO DAILY #5 tablet Continue Cholecalciferol [Vitamin D3 (125 Mcg = 5000 Iu)] 125 mcg PO DAILY Aspirin EC [Ecotrin Low Dose] 81 mg PO DAILY Ascorbic Acid [Vitamin C] 1,000 mg PO DAILY Zinc 50 mg PO DAILY Losartan Potassium 50 mg PO HS Discharge Medication List Losartan Potassium 50 mg PO HS 11/04/20 [History] Ascorbic Acid [Vitamin C] 1,000 mg PO DAILY 08/17/21 [History] Aspirin EC [Ecotrin Low Dose] 81 mg PO DAILY 08/17/21 [History] Cholecalciferol [Vitamin D3 (125 Mcg = 5000 Iu)] 125 mcg PO DAILY 08/17/21 [History] Zinc 50 mg PO DAILY 08/17/21 [History] ALPRAZolam [Xanax] 0.25 mg PO TID PRN #12 tab 08/29/21 [Rx] Acetaminophen Tab [Tylenol] 1,000 mg PO Q6HR PRN tab 08/29/21 [Rx] Albuterol Inhaler [Ventolin Hfa Inhaler] 2 puff INHALATION RT-QID #1 each 08/29/21 [Rx] Apixaban [Eliquis] 5 mg PO BID #60 tab 08/29/21 [Rx] Apixaban [Eliquis] 10 mg PO BID #10 tab 08/29/21 [Rx] Dexamethasone 6 mg PO DAILY #5 tablet 08/29/21 [Rx] Docusate [Colace] 100 mg PO BID PRN cap 08/29/21 [Rx] Mag Hydrox/Al Hydrox/Simeth [Maalox] 30 ml PO Q4HR PRN ml 08/29/21 [Rx] hydrALAZINE HCL [Apresoline] 25 mg PO BID PRN #60 tab 08/29/21 [Rx] Follow up Appointment(s)/Referral(s): [facility] [NON-STAFF] - 1 Week (oxygen) Dario Hooper MD [Primary Care Provider] - 1 Week Radha Caldwell MD [STAFF PHYSICIAN] - 1 Week Patient Instructions/Handouts: Coronavirus Disease 2019 (COVID-19) Discharge Disposition: HOME SELF-CARE
[2021-08-29] MEDS: BARICITINIB 2 MG TABLET PO SCH (12:58)
[2021-08-29] MEDS: ALPRAZolam 0.25 MG TAB PO PRN (12:59)
--- NOTE | 2021-08-29 14:55 | P.PN ---
Subjective Progress Note Date: 08/29/21 This a very pleasant 61-year-old male patient with a history of hypertension, nephrolithiasis requiring stent placement to the right ureter who follows with Dr. Hooper as his primary care provider. He presented here to the emergency room yesterday with complaints of increasing shortness breath, cough congestion fever since 08/10/2021. He tested positive on 08/11/2021 with COVID-19. He is not vaccinated. He is currently seen in the emergency department. Currently resting fairly comfortably in bed. He is on 2 L nasal cannula to maintain O2 saturation is a low 90s. Chest x-ray does reveal evidence of bilateral multifocal opacities CT angiogram was suboptimal but no large central or definite lobar branch pulmonary emboli. Again bilateral patchy groundglass opacities consistent with COVID-19 pneumonia. Right greater than left. White count 10.0. Hemoglobin 15.7. Platelets 135. Lymphocytes 0.6. D-dimer 0.69. Sodium 133. Potassium 4.1. Creatinine 1.1. AST 129. ALT 59. LDH 1545. C- reactive protein 23.9. Pro-calcitonin 0.52. He's been initiated on Decadron, Lovenox, vitamin supplements. Outside the window for Remdesivir. Not meeting criteria for Baricitinib. The patient is seen today 08/29/2021 in follow-up on the regular medical floor. He is currently up ambulating in his room. Awake and alert in no acute distress. He is maintaining O2 saturation in the 90s on 3 L/m per nasal cannula. He's been afebrile. Hemodynamically stable. Blood cultures revealed no growth. Sodium 135. Potassium 5.0. Creatinine 1.07. AST 40. ALT 125. Glucose 0.08. He is continued on Baricitinib, Decadron, vitamin supplements. Anticoagulated with Eliquis as his CT angiogram revealed a right lower lobe pulmonary embolism. Objective - Vital Signs Vital signs: Vital Signs Temp 98.8 F 08/29/21 10:00 Pulse 108 H 08/29/21 10:00 Resp 18 08/29/21 10:00 BP 121/80 08/29/21 10:00 Pulse Ox 92 L 08/29/21 11:50 Intake & Output 08/28/21 08/29/21 08/29/21 18:59 06:59 18:59 Intake Total 1080 Balance 1080 Weight 92.9 kg Intake: Oral 1080 Other: Voiding Method Urinal Urinal Urinal # Voids 4 3 # Bowel Movements 2 - Exam GENERAL EXAM: Alert, pleasant 61-year-old male patient, on 3 L high flow nasal cannula, up ambulating in his room, fairly, comfortable in no apparent distress. HEAD: Normocephalic. EYES: Normal reaction of pupils, equal size. NOSE: Clear with pink turbinates. THROAT: No erythema or exudates. NECK: No masses, no JVD. CHEST: No chest wall deformity. LUNGS: Equal air entry with bibasilar crackles CVS: S1 and S2 normal with no audible murmur, regular rhythm. ABDOMEN: No hepatosplenomegaly, normal bowel sounds, no guarding or rigidity. SPINE: No scoliosis or deformity SKIN: No rashes CENTRAL NERVOUS SYSTEM: No focal deficits, tone is normal in all 4 extremities. EXTREMITIES: There is no peripheral edema. No clubbing, no cyanosis. Peripheral pulses are intact.. - Labs CBC & Chem 7: 08/29/21 05:38 08/29/21 06:57 Labs: Abnormal Lab Results - Last 24 Hours (Table) 08/29/21 08/29/21 Range/Units 05:38 06:57 WBC 24.9 H (3.8-10.6) k/uL Neutrophils # 21.3 H (1.3-7.7) k/uL Monocytes # 1.2 H (0-1.0) k/uL Sodium 135 L (137-145) mmol/L Chloride 96 L (98-107) mmol/L Carbon Dioxide 38 H (22-30) mmol/L BUN 26 H (9-20) mg/dL ALT 125 H (4-49) U/L Total Protein 5.8 L (6.3-8.2) g/dL Albumin 2.9 L (3.5-5.0) g/dL Microbiology - Last 24 Hours (Table) 08/23/21 15:05 Blood Culture - Preliminary Blood No Growth after 120 hours 08/23/21 15:20 Blood Culture - Preliminary Blood No Growth after 120 hours Assessment and Plan Assessment: 1 Acute hypoxic respiratory failure secondary to COVID-19 pneumonia. Symptoms started 08/10/2021. Tested positive on 08/11/2021. Outside the window for Remdesivir. He was initiated on Baricitinib. Currently on 3 L nasal cannula. Not vaccinated. 2 Elevated inflammatory markers secondary to above 3 Mild transaminitis secondary to above 4 History of hypertension 5 History of nephrolithiasis with previous stent placement to the right ureter Plan: The patient was seen and evaluated Stable from the pulmonary standpoint Down to 3 L nasal cannula Will most likely need home oxygen Upon discharge, follow-up in our office in 2-3 weeks I, the cosigning physician, performed a history & physical examination of the patient. Lungs sounds with crackles in bilateral bases. Maintaining good O2 saturations in the 90s on 3 L/m per nasal cannula. I discussed the assessment and plan of care with my nurse practitioner, Nela Patterson. I attest to the above note as dictated by her.
--- NOTE | 2021-09-01 10:19 | CDI ---
Documentation Clarification Form Date: 08/28/2021 08:17:00 AM From: Aziza Mae Admit Date: 08/24/2021 05:35:00 AM Patient Name: Jameson Velasco Visit Number: [id number] Discharge Date: 08/26/2021 03:29:00 PM ATTENTION: The Clinical Documentation Specialists (CDI) and [facility] Coding Staff appreciate your assistance in clarifying documentation. Please respond to the clarification below the line at the bottom and electronically sign. The CDI & [facility] Coding staff will review the response and follow-up if needed. Please note: Queries are made part of the Legal Health Record. If you have any questions, please contact the author of this message via ITS. Dr. Demetrius Charlton The COVID-19 test obtained on 08/22/2021 is documented as detected (positive). There is no documentation in chart of patient being Covid positive. Please clarify if patient had Covid 19. History/risk factors: Positive Covid test Clinical Indicators: Positive Covid Test Please clarify the COVID-19 status: [ ] False positive test [ ] COVID-19 ruled out [ ] Covid 19 positive [ ] Other, please specify MTDD
[2021-09-04] MEDS ORDERED: APIXABAN 5 MG TAB PO SCH (09:00)
== END 2021-08-29 19:23 | disposition home or self-care (01) | DRG 871 ==
LOC: EC 10:57 → 4SSUR 15:59
PROVIDERS: ADMIT Internal Medicine Geriatric Medicine; ATTEND Internal Medicine Geriatric Medicine
PROC: XW0DXM6 Introduction of Baricitinib into Mouth and Pharynx, External Approach, New Technology Group 6 (ICD-10-PCS; principal; 2021-08-24)
DX: A41.89 Other specified sepsis (principal); U07.1 COVID-19; J12.82 Pneumonia due to coronavirus disease 2019; J80 Acute respiratory distress syndrome; I26.99 Other pulmonary embolism without acute cor pulmonale; D68.9 Coagulation defect, unspecified; G47.33 Obstructive sleep apnea (adult) (pediatric); E78.5 Hyperlipidemia, unspecified; F17.210 Nicotine dependence, cigarettes, uncomplicated; J45.20 Mild intermittent asthma, uncomplicated; K59.00 Constipation, unspecified; K64.9 Unspecified hemorrhoids; F40.240 Claustrophobia; R04.0 Epistaxis; I10 Essential (primary) hypertension; Z79.01 Long term (current) use of anticoagulants; Z79.82 Long term (current) use of aspirin; Z79.899 Other long term (current) drug therapy; Z80.6 Family history of leukemia; Z80.8 Family history of malignant neoplasm of other organs or systems; Z86.711 Personal history of pulmonary embolism; Z86.718 Personal history of other venous thrombosis and embolism; Z87.442 Personal history of urinary calculi; Z98.890 Other specified postprocedural states; Z98.49 Cataract extraction status, unspecified eye; Z96.1 Presence of intraocular lens; Z90.49 Acquired absence of other specified parts of digestive tract
CPT/HCPCS: 36415; 71045; 71250; 71275; 80053; 82728; 83605; 83615; 83735; 84145; 85025; 85379; 85610; 85730; 86140; 87040; 87070; 87205; 87635; 93005; 93970; 94640; 94760; 96361; 96374; 96376; 99285

== ENCOUNTER → 2024-01-31 | Outpatient (CLI) | payer OTHER ==
[2024-01-31 14:26] LABS: Basophils # (A) 0.03 X 10*3/uL (0.00-0.10); Basophils % (A) 0.4 %; Eosinophils % (A) 1.5 %; HCT 49.2 % (39.6-50.0); HGB 15.6 g/dL (13.0-17.0); Lymphocytes % (A) 32.8 %; MCHC 31.7 g/dL (32.0-37.0); MCV 97.8 FL (80.0-97.0); Mean Platelet Volume 11.3 FL (9.5-12.2); Monocytes # (A) 0.64 X 10*3/uL (0.20-1.00); Monocytes % (A) 9.5 %; NRBC Per 100 WBC 0 X 10*3/uL (0.00-0.01); Neutrophils # (A) 3.72 X 10*3/uL (1.80-7.70); Neutrophils % (A) 55.5 %; Platelet Count 193 X 10*3/uL (140-440); RBC 5.03 X 10*6/uL (4.40-5.60); WBC 6.71 X 10*3/uL (4.50-10.00)
[2024-01-31 14:38] LABS: ALT 39 U/L (10-49); AST 33 U/L (14-35); Albumin 4.3 g/dL (3.8-4.9); Albumin/Globulin Ratio 1.95 Ratio (1.60-3.17); Alkaline Phosphatase 77 U/L (41-126); BUN/Creat Ratio 10.91 Ratio (12.00-20.00); Calcium 9.9 mg/dL (8.7-10.3); Carbon Dioxide 26.7 mmol/L (21.6-31.8); Chloride 107 mmol/L (96-109); Chol/HDL Ratio 5.26 Ratio; Globulin 2.2 g/dL (1.6-3.3); Glucose 97 mg/dL (70-110); LDL Cholesterol,Calculated 121.8 mg/dL (0.0-131.0); Potassium 5.7 mmol/L (3.5-5.5); Sodium 144 mmol/L (135-145); Total Bilirubin 0.6 mg/dL (0.3-1.2); Total Protein 6.5 g/dL (6.2-8.2)
== END | disposition home or self-care (01) ==
LOC: LABWHC1 11:58
PROVIDERS: ATTEND Family Medicine
DX: Z12.5 Encounter for screening for malignant neoplasm of prostate (principal); I10 Essential (primary) hypertension; E78.00 Pure hypercholesterolemia, unspecified
CPT/HCPCS: 36415; 80053; 80061; 84443; 85025

== ENCOUNTER → 2024-02-02 | Outpatient (CLI) | payer OTHER | END | disposition home or self-care (01) | LOC: LABWHC1 11:44 | PROVIDERS: ATTEND Family Medicine | DX: E87.5 Hyperkalemia (principal) | CPT/HCPCS: 36415; 84132 ==